=== PATIENT | female | born 1935 | race Caucasian/White ===

== ENCOUNTER 2016-10-09 08:43 | Emergency (ER) | payer MEDICARE, BC ==
[2016-05-09 12:27] VITALS: BMI 22.3
[~2016-10-09 08:43] MED LIST: COZAAR25 MG PO; FLOVENT DI50 MCG/DIS INH; FLUTICASONE PRO16 GM NASAL; NEXIUM40 MG PO; XYZAL5 MG PO
[2016-10-29] MEDS ORDERED: AZELASTINE HCL6 ML EACH EYE (08:02)
[2016-10-29] MEDS ORDERED: TOPICORT 0.25 %15 G1 TOPICAL (08:03)
== END 2016-10-09 10:24 | disposition home or self-care (01) ==
LOC: D.ER 08:43
DX: R13.10 Dysphagia, unspecified (principal); I10 Essential (primary) hypertension

== ENCOUNTER 2016-10-30 05:32 | Inpatient (IN) | payer MEDICARE, BC ==
[2016-10-29 08:59] LABS: BASOPHILS 0.2 % (0.0-2.0); EOSINOPHILS 4.3 % (0-7); HEMATOCRIT 39.1 % (36.0-48.0); HEMOGLOBIN 12.7 g/dL (12-16); IMMATURE GRANULOCYTES 0.3 % (0-5); LYMPHOCYTES 17.9 % (15-50); MCH 30.1 pg (26.0-34.0); MCHC 32.5 g/dL (31.0-37.0); MCV 92.7 fL (80.0-100.0); MEAN PLATELET VOLUME 10.2 fL (7.4-10.4); NEUTROPHILS 69.3 % (40-80); RBC 4.22 10x6/uL (4.00-5.40); RDW 12.7 % (11.5-14.5); WBC 10.7 10x3/uL (4.8-10.8)
[2016-10-29 09:08] LABS: ANION GAP 10.1 mmol/L (8-16); CALCIUM 9.8 mg/dL (8.5-10.1); PLATELET COUNT 350 10x3/uL (130-400); POTASSIUM - SERUM 4.1 mmol/L (3.5-5.1)
[2016-10-30] VITALS (11 sets, daily range): BP systolic 91–140; BP diastolic 53–61; BMI 21.5; BMI 29.3
[~2016-10-30] VITALS: Ht 165.1 cm; Wt 73.4 kg
--- NOTE | ~2016-10-30 | PN ---
PATIENT:RYLIE LUJAN MEDICAL RECORD: [id number] LOCATION:D.ICU D.231 ADMISSION DATE: 10/30/16 PROGRESS NOTE DATE OF SERVICE: 11/23/2016 Not much has changed in her care. We are awaiting LTAC placement. Dr. Bennett returns on Friday. TRANSINT:[id number] Voice Confirmation ID: [id number] DOCUMENT ID: [id number] LUIS MARTI MD CC: [id number] DICTATION DATE: 11/24/161909 DIVISION ENGINEER: 11/24/161999 ADM IN [facility] [address] [id number]
[~2016-10-30 05:32] MED LIST changes: +AZELASTINE HCL6 ML EACH EYE; +TOPICORT 0.25 %15 G1 TOPICAL
--- NOTE | 2016-10-30 18:58 | NUR ---
TRANSPORTED TO ICU INTUBATED WITH MONITOR, O2 AND AMBU
--- NOTE | 2016-10-30 19:10 | NUR ---
PT RECEIVED FROM THE OR. PT HAS 6 LAP SITES CDI ON ABDOMEN. LEFT LATERAL CHEST TUBE IN PLACE. PT ON VENT. TUBE IS SIZE 7 AT 23 CM. 100% FIO2. 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 BP 99/58 HR 71 TEMP 97 O2 SAT 96. VSS. CISNEROS IN PLACE. URINE CLEAR AND YELLOW. VSS. WILL CONTINUE TO MONITOR
--- NOTE | 2016-10-30 21:00 | NUR ---
2100 MEDS GIVE. ONE TIME BOLUS OF NS GIVEN PER ORDERS. VENT DECREASED TO 50% FIO2 BY RESPIRATORY.
[2016-10-30 21:10] LABS: HEMOGLOBIN 10.5 g/dL (12-16); MCH 29.9 pg (26.0-34.0); MCHC 31.8 g/dL (31.0-37.0); MEAN PLATELET VOLUME 10.6 fL (7.4-10.4); RBC 3.51 10x6/uL (4.00-5.40); RDW 12.9 % (11.5-14.5); WBC 30.9 10x3/uL (4.8-10.8)
[2016-10-30 21:24] LABS: ANION GAP 13.6 mmol/L (8-16); CALCIUM 7.9 mg/dL (8.5-10.1); CARBON DIOXIDE 25.6 mmol/L (21.0-32.0); POTASSIUM - SERUM 4.2 mmol/L (3.5-5.1)
--- NOTE | 2016-10-30 23:23 | NUR ---
B/P HAS BEEN TRENDING DOWN HR DECREASED TO [address] MCKEON AND GAVE A ONE TIME FLUID BOLUS AND OBTAINED A 12 LEAD EKG PER HIS ORDERS. WILL CONTINUE TO MONITOR CLOSELY FOR CHANGES.
[2016-10-31] VITALS (34 sets, daily range): BP systolic 81–162; BP diastolic 49–98; Ht 165.1 cm; Wt 73.4 kg
[2016-10-31 00:40] LABS: CKMB 1.2 U/L (0.0-3.6); CREATINE KINASE 71 UL (21-215)
[2016-10-31 00:49] LABS: TROPONIN-I < 0.017 ng/mL (0.000-0.060)
--- NOTE | 2016-10-31 01:24 | NUR ---
PT B/P HAS INCREASED TO 90'S SYSTOLIC. WILL CONTINUE TO MONITOR FOR CHANGES.
--- NOTE | 2016-10-31 03:00 | NUR ---
REASSESSMENT COMPLETED. SEE FLOWSHEET.
--- NOTE | 2016-10-31 04:56 | NUR ---
SPOKE WITH DR MCKEON REGARDING DECREASED B/P ND HR AGAIN. INSTRUCTED TO ORDER AN ECHO, AND GIVE A 500 ML BOLUS. WILL CONTINUE TO MONITOR FOR CHANGES
--- NOTE | 2016-10-31 06:30 | OP ---
PATIENT NAME: RYLIE LUJAN MEDICAL RECORD: [id number] :37 LOCATION: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 SURGEON: Abel Mckeon MD PROCEDURES: 1. Laparoscopic Heller myotomy with Beto fundoplication. 2. Esophagogastroduodenoscopy 3. Left chest tube thoracostomy. ANESTHESIA: General. COMPLICATIONS: None. SPECIMENS: Mediastinal mass. ESTIMATED BLOOD LOSS: 400 cc. Case was clean contaminated. OPERATIVE COURSE: After consent was obtained, the patient was taken to the operating room and placed in the supine position on the operating table. Next, general anesthesia was given via endotracheal intubation after a timeout was performed to confirm the correct patient and procedure. The abdomen was then prepped and draped in the typical sterile fashion. Local anesthetic was injected just above the umbilicus. A stab incision was made with 11-blade scalpel. Using a 5-mm bladeless optical trocar, the abdomen was entered under direct laparoscopic vision. Adequate pneumoperitoneum was achieved. The abdominal cavity was inspected. No evidence of bowel injury. No evidence of bleeding. At this time, the patient was placed in the steep reverse Trendelenburg position and Rashawn liver retractor was placed in the subxiphoid position. The left lobe of the liver was elevated exposing the GE junction in the diaphragmatic crura. At this time, ____ placed into the right lateral quadrant and two 5-mm trocars into the left lateral quadrant. All trocars were placed after the administration of local anesthetic under direct laparoscopic vision. Minimal amount of lysis of adhesion was performed. The patient had a previous gastric feeding tube. The proximal third of the greater curve ____ were mobilized. The short gastrics were taken with Harmonic scalpel. An accessory branch at the splenic artery was encountered, three 10-mm clips were applied to the artery. Next, the gastrohepatic ligament was opened with the Harmonic scalpel. Dissection continued at the level of the right crura. The posterior dissection was performed with Harmonic scalpel and blunt dissection, freeing up the posterior surface of the stomach and the esophagus. OPERATIVE REPORT [id number] TAIRYLIE Tatianna Dissection then continued anteriorly to the left crura. At this time, the entire hiatus had been circumferentially dissected. There was no hiatal hernia. At this time, we attempted to dissect out the mediastinum. The right side of the mediastinum and the posterior surface of the mediastinum were normal. The avascular planes were bluntly dissected with blunt dissectors. The left and anterior surface of the esophagus was densely adherent to the left pleura. There was a hard tissue mass to the left pleura. The pleura into the left chest was entered due to the significance of this coronary adhesions. A plane was finding created. The mass between the left pleura on the left side of the esophagus was sent for permanent pathology. Dissection continued. This area within the mediastinum was the area of Achalasia. A myotomy was performed. There was a small mucosal defect at this time. An EGD was performed by myself, scope was passed first through the oropharynx. It was advanced to the esophagus. There was a small hole in the esophagus. After the myotomy, the scope was easily traversed into the stomach. The scope was left in place. A primary repair was performed on the left anterior surface of the esophagus using 2-0 Stratafix suture. Prior to closure, a wire was passed through the EGD and C-scope was removed. A 41-Maltese Savary dilator was passed through the wire. The dilator was easily traversed across the previous area of achalasia. The mucosa was repaired with a 2-0 Stratafix suture. At this time, the dilator and wire were removed under direct laparoscopic vision. A Beto fundoplication was then performed using 2-0 Stratafix suture. It was secured to the left crura. After being secured to the left crura, was secured to the anterior esophagus reinforcing myotomy and again was reinforced of the right crura. At this time, the abdomen was copiously irrigated and suctioned. The abdominal cavity was inspected. There was no evidence of bowel injury. No evidence of bleeding. The Rashawn liver retractor was remove, all remaining irrigation was removed. The 12-mm trocars removed and closed with Vicryl suture and a Khanh-Dipika suture passer under direct laparoscopic vision. At this time, all remaining instruments were removed. The abdomen was desufflated. The skin was closed with 4-0 Monocryl, Mastisol and Steri-Strips. Due to the size of the pleural defect in the left chest, a 28-Maltese chest tube was placed into the left pleural cavity. The fourth intercostal space was identified just above the mammary crease. Local anesthetic was injected. An incision made with a 15 blade scalpel. Dissection continued to the level of the fifth rib and Vivien clamp was passed to the anterior surface of the fifth rib and in the pleural cavity. A finger sweep was performed. There were adhesions noted along the entire surface of the lateral chest wall. A 28-Maltese chest tube was placed posteriorly towards the apex and secured to the skin at 14 cm with 0 silk suture and then placed to 20 mmHg suction. The patient was transferred to the ICU, intubated in stable condition. At the end of the case, all needle and instrument counts were correct. No complications occurred. TRANSINT:[id number] Voice Confirmation ID: [id number] DOCUMENT ID: [id number] ABEL MCKEON MD at 0630 CC: [id number] DICTATION DATE: 10/30/161837 INSPECTOR SHEET METAL PARTS: 10/30/16 2352 ADM IN [id number] [place] [address]
[2016-10-31 06:39] LABS: BASOPHILS 0 % (0.0-2.0); EOSINOPHILS 0.1 % (0-7); HEMATOCRIT 25.9 % (36.0-48.0); HEMOGLOBIN 8.4 g/dL (12-16); IMMATURE GRANULOCYTES 0.3 % (0-5); LYMPHOCYTES 8.7 % (15-50); MCH 30.1 pg (26.0-34.0); MCHC 32.4 g/dL (31.0-37.0); MCV 92.8 fL (80.0-100.0); MEAN PLATELET VOLUME 10.6 fL (7.4-10.4); MONOCYTES 6.3 % (2-11); NEUTROPHILS 84.6 % (40-80); PLATELET COUNT 289 10x3/uL (130-400); RBC 2.79 10x6/uL (4.00-5.40); RDW 13.1 % (11.5-14.5); WBC 14.9 10x3/uL (4.8-10.8)
[2016-10-31 07:11] LABS: CALC OSMOLALITY 278 mosm/kg (275-300); CARBON DIOXIDE 18.8 mmol/L (21.0-32.0); CHLORIDE - SERUM 109 mmol/L (98-107); CKMB 1.1 U/L (0.0-3.6); CREATINE KINASE 80 UL (21-215); CREATININE - SERUM 1.1 mg/dL (0.6-1.3); GLUCOSE 124 mg/dL (74-106); POTASSIUM - SERUM 3.4 mmol/L (3.5-5.1); SODIUM 138 mmol/L (136-145); TROPONIN-I < 0.017 ng/mL (0.000-0.060); UREA NITROGEN 17 mg/dL (7-18); eGFR NON AFRICAN AMERICAN 51 mL/min (90-120)
[2016-10-31 07:12] LABS: CALCIUM 5.8 mg/dL (8.5-10.1)
--- NOTE | 2016-10-31 07:15 | NUR ---
SPOKE WITH DR MCKEON ABOUT CRITICAL CALCIUM. NEW ORDERS RECEIVED.
--- NOTE | 2016-10-31 08:55 | NUR ---
DR LAUREANO SAID OK TO USE CENTRAL LINE.
--- NOTE | 2016-10-31 09:30 | NUR ---
PATIENTS FIRST UNIT OF PRBC'S ([id number]) STARTED AFTER SAFETY CHECK WITH TWIN NOVA RN.
--- NOTE | 2016-10-31 10:00 | NUR ---
SEDATION TURNED OFF BY DR LAUREANO SOMETIME IN THE LAST 10 MINUTES.
--- NOTE | 2016-10-31 10:12 | NUR ---
PATIENT IS ON THE VENT WITH SEDATION. SHE IS NOT ABLE TO ANSWER QUESTIONS. I HAVE NOT SEEN ANY FAMILY HERE TO INTERVIEW. CM TO FOLLOW.
--- NOTE | 2016-10-31 10:31 | NUR ---
PATIENT IS AWAKE, IT HAS BEEN EXPLAINED THAT WE ARE TRYING TO WEAN HER OFF THE VENT WITH HOPES OF HAVING THAT TUBE OUT TODAY. PATIENT SHAKES HER HEAD YES TO UNDERSTANDING. IT WAS ALSO EXPLAINED THAT WE WOULD UNDO THE RESTRAINTS ONCE THE TUBE WAS OUT SECONDARY TO HER REACHING FOR THE TUBE WITH THEM OFF. SHE AGAIN SHOOK HER HEAD YES IN UNDERSTANDING. BLOOD CONTINUES TO INFUSE. WILL KEEP MONITORING.
--- NOTE | 2016-10-31 10:36 | NUR ---
DR MCKEON PAGED TO CLARIFY PAIN MANAGEMENT AFTER PATIENT IS EXTUBATED AND TO SEE WHAT HE PREFERS ON DIET. WILL WAIT FOR RETURN CALL.
--- NOTE | 2016-10-31 11:12 | NUR ---
PATIENT SWITCHED OVER TO CPAP
--- NOTE | 2016-10-31 11:26 | NUR ---
PATIENTS FIRST UNIT OF PRBC COMPLETED. NO S/S OF TRANSFUSION REACTION NOTED.
--- NOTE | 2016-10-31 11:35 | NUR ---
PATIENTS SECOND UNIT OF BLOOD ([id number]) STARTED AFTER SAFETY CHECK WITH TWIN RODRIGUEZ RN. WILL CONTINUE TO MONITOR.
[2016-10-31 12:30] LABS: CKMB 2.2 U/L (0.0-3.6); CREATINE KINASE 160 UL (21-215)
[2016-10-31 12:33] LABS: POTASSIUM - SERUM 5.1 mmol/L (3.5-5.1); TROPONIN-I < 0.017 ng/mL (0.000-0.060)
--- NOTE | 2016-10-31 12:57 | NUR ---
PATIENT IS EXTUBATED (1240) HAVE SPOKEN WITH DR MCKEON ON THE PHONE. PATIENT IS TO REMAIN STRICT NPO, NOTHING (NO ICE, WATER, NGT, NOTHING) IS TO GO INTO HER MOUTH. NEW ORDERS RECEIVED IN REGARDS TO PAIN CONTROL. WILL IMPLEMENT SOON PHARMACY GETS ON EMAR. IV TO LEFT HAND INFILTRATED, EXTREMETY IS COOL TO TOUCH AND LOOKS BRUISED UNDER INSERTION SITE AND ABOUT 1.5 INCHES UP ARM. THIS HAS BEEN ELEVATED AND PLACED IN WARM PACK. WILL MONITOR. RESTRAINTS WERE DC'D AT THIS TIME.
--- NOTE | 2016-10-31 13:00 | NUR ---
PATIENT C/O PAIN AT INSERTION SITE OF CHEST TUBE. THIS HAS BEEN EXPLAINED TO DR MCKEON.
--- NOTE | 2016-10-31 13:35 | NUR ---
PATIENTS SECOND UNIT OF PRBC'S COMPLETED. PATIENT WITHOUT ANY S/S OF TRANSFUSION REACTIONS.
--- NOTE | 2016-10-31 14:58 | NUR ---
Is the patient Alert and Oriented? Yes 0 * How many steps to enter\exit or inside your home? 0 0 * PCP DR BEDOYA 0 * Pharmacy [facility] [place] [address] * Preadmission Environment Home with Family 0 * ADLs Independent 0 * Equipment None 0 * List name and contact numbers for known caregivers / representatives who currently or will assist patient after discharge: DAUGHTER: JOHN CARTER [phone] OR [phone] DAUGHTER: SAVITA [phone] * Community resources currently utilized None 0 * Additional services required to return to the preadmission environment? No 0 * Can the patient safely return to the preadmission environment? Yes 0 * Has this patient been hospitalized within the prior 30 days at any hospital? No PATIENT IS EXTUBATED AND AWAKE AND ALERT. SHE STATES SHE LIVES AT HOME AND HER DAUGHTER, JOHN, LIVES WITH HER. SHE STATES HER PCP IS DR. BEDOYA. SHE STATES SHE GETS HER MEDS AT [facility] ON [address] SHE DENIES USE OF ANY EQUIPMENT. PATIENT STATES SHE HAD HOME HEALTH IN 2015 BUT DOES NOT RECALL THE AGENCY. MAY HAVE BEEN [facility]. PATIENT STATES THERE ARE NO STEPS TO ENTER HER HOME. NO DISHCHARGE NEEDS IDENTIFIED AT THIS TIME.
--- NOTE | 2016-10-31 15:21 | NUR ---
PATIENTS SISTER HERE. SHE REQUESTED THAT THIS NURSE STEP OUTSIDE OF THE ROOM AND TALK WITH HER. PATIENT STATED THAT THIS WAS OK. THE SISTER THEN BEGAN QUESTIONING EXACTLY WHAT THE CUTS WERE THE DOCTOR MADE, WHAT ALL WAS REMOVED FROM THE BODY, HOW LONG BEFORE THE BIOPSY WAS BACK FROM THE LARGE MASS REMOVED FROM HER BELLY, DID THE MASS LOOK CANCEROUS. AT THIS TIME I POLITELY INTERRUPTED AND STATED THAT THESE ARE MORE QUESTIONS THAT NEED TO BE ASKED TO DR MCKEON. SHE STATED "OH, OK, DO YOU THINK HE WOULD ANSWER THEM?" IT WAS EXPLAINED THAT HE WOULD DO HIS BEST, BUT IN ALL HONESTY SHE WAS ASKING QUESTIONS THAT WE MAY NOT HAVE THE ANSWERS TO YET. SHE STATED HER UNDERSTANDING.
--- NOTE | 2016-10-31 19:15 | NUR ---
REPORT RECEIVED AND CARE ASSUMED. INITIAL SHIFT ASSESSMENT COMPLETED SEE FLOWSHEET. NOTE IVF ARE VIA PUMP AND ALL IVF AND TUBING ARE LABELED APPROPRIATE AND ARE NOT DUE TO BE CHANGED. PT BEING MONITORED PER STANDARD ICU PROTOCOL AND ALL ALARMS ARE VERIFIED AND SET. PT NOTED TO BE AAOX4. DENIES NEEDS. ADMITS TO HER BACK BEING TIRED BUT VERBALIZED SHE IS SCARED TO TURN BECAUSE SHE MAY PULL SOMETHING OUT. ASSURED PT THE STAFF WOULD ASSIST HER. PT TURNED AND PILLOWS USED TO PROVIDE SUPPORT AND RELIEVE PRESSURE. PT ADMITS TO RELIEF FOR BACK DISCOMFORT. REORIENTATED PT TO USE OF SECURITY PATROL DRIVER BUTTON AND PT STATED SHE WAS IN NO PAIN AND DID UNDERSTAND HOW TO USE THE BUTTON. ORAL CARE PERFORMED. LIPS VERY DRY. MOUTH MOISTERIZER USED APPROPRIATE. NOT CT DRESSING CDI AND DRAINING SEROSANQ DRAINAGE TO THORASEAL III TO 21CM SUCTION NO LEAKS NOTED. FOR COMPLETE ASSESSMENT SEE FLOWSHEET. BED IN LOW POSITION AND CALL LIGHT IN REACH
--- NOTE | 2016-10-31 21:00 | NUR ---
DAUGHTER HER TO VISIT. EXPRESSED CONCERN OVER PT'S SISTER VISITING STATING "SHE IS UNEDUCATED AND CANT UNDERSTAND NOT TO UPSET HER BY TALKING". ASSURED PT I UNDERSTOOD HER CONCERNS AND THE HEALTH AND WELL BEING OF OUR PATIENTS WERE OUR TOP PRIORITY. DAUGHTER, JOHN, VERBALIZED COMPREHENSION OF STATEMENT. PT RESTING QUIETLY AT THIS TIME AND DENIES NEEDS. CONTINUE TO TURN AND REPOSITION Q2H FOR COMFORT AND TO RELIEVE PRESSURE.HEELS ARE FLOATED AND ARMS ELEVATED ON PILLOWS.
--- NOTE | 2016-10-31 21:00 | NUR ---
COPY OF LIVING WILL AND DURABLE POWER OF CAR SEAT MAKER FOR HEALTH CARE RECEIVED FROM DAUGHTER, JOHN NOVA. COPY PLACED ON CHART
--- NOTE | 2016-10-31 23:00 | NUR ---
SHIFT ASSESSMENT COMPLETED. NO SIGNIFICANT CHANGES. CONTINUE TO ASSIST PT WITH REPOSITIONING Q2H. PT CONTINUES TO DENY PAIN. PT BECOMING LESS FEARFUL ABOUT DISLODGING SOMETHING AND MORE PARTICIPATORY IN CARE.
[2016-11-01] VITALS (23 sets, daily range): BP systolic 109–155; BP diastolic 57–95
--- NOTE | 2016-11-01 01:00 | NUR ---
PT RESTING RESP REG AND NONLABORED. PT WITH AN OCCASIONAL LOOSE COUGH NONPRODUCTIVE
--- NOTE | 2016-11-01 03:00 | NUR ---
SHIFT ASSESSMENT COMPLETED. NO SIGNIFICANT CHANGES
[2016-11-01 04:51] LABS: HEMATOCRIT 35.1 % (36.0-48.0); HEMOGLOBIN 11.5 g/dL (12-16); MCH 29.4 pg (26.0-34.0); MCHC 32.8 g/dL (31.0-37.0); MCV 89.8 fL (80.0-100.0); MEAN PLATELET VOLUME 11.6 fL (7.4-10.4); PLATELET COUNT 309 10x3/uL (130-400); RBC 3.91 10x6/uL (4.00-5.40); RDW 14.9 % (11.5-14.5); WBC 25.2 10x3/uL (4.8-10.8)
[2016-11-01 05:05] LABS: CREATININE - SERUM 1.1 mg/dL (0.6-1.3)
[2016-11-01 05:09] LABS: ANION GAP 14.2 mmol/L (8-16); CALCIUM 9.3 mg/dL (8.5-10.1); POTASSIUM - SERUM 4.2 mmol/L (3.5-5.1)
[2016-11-01 05:25] LABS: EOSINOPHILS 1 % (0-7); LYMPHOCYTES 4 % (15-50); MONOCYTES 4 % (2-11); NEUTROPHILS 89 % (40-80); PLATELET ESTIMATE NORMAL
--- NOTE | 2016-11-01 05:45 | NUR ---
LABS REVIEWED. NO COVERAGE NEEDED FOR ELECTROLYTE PROTOCOL
--- NOTE | 2016-11-01 06:31 | NUR ---
CALL RECEIVED FROM XAVIER JOHN, SECURITY WORD VERIFIED AND UPDATE GIVEN.
--- NOTE | 2016-11-01 07:24 | NUR ---
REPORT GIVEN TO DALILA KELLEY CARE RELINQUISHED
--- NOTE | 2016-11-01 17:16 | NUR ---
8057-RECIEVED PER FLOW SHEET-DR ADKINS IN UNIT AND NOTIFIED OF CONSULT-ASSISTED TO BEDSIDE CHAIR VERBALLY DIRECTED BY DR MCKEON-REQUIRED ASSIST OF 2 -LL CVL INFUSING N/S AT 100ML/H AND MORPHINE TRUCK DRIVING PER PT USAGE--STRICT NPO 1030-ASSISTED BACK TO BED FOR GASTRO GRAFFIN AND CT-TO RADIOLOGY ACCOMPANIED BY TECHS-1100
--- NOTE | 2016-11-01 19:20 | NUR ---
Assessment complete. See flowsheet. Pt sedated to vinnie 3 with Propofol sedation infusing @ 10mcg/kg/min (5.6cc/hr) upon entrance into room with VSS. Pt opens eyes slightly to vetbal stimulation and moves extremities to command against gravity. Slight non-pitting edema noted to upper extremities bilaterally and elevated with pillows to facilitate drainage. Pt orally intubated with 8.0FR OET tube secure 22cm @ lip secure to ventilator set A/C Rate 14 TV 550 FiO2 @ 100% PEEP 8.0. Lung sounds clear to RUL and RML and diminished to MARK, LLL and RLL. HR ST 104BPM with S1S2 auscultated. All peripheral pulses +2 with capillary refill <3 seconds. Left IJTL CVL site CDI no s/s infection with NS infusing @ 60cc/hr with TPN @ 40cc/hr and Propofol sedation. BS hypoactive to all quadrants. Abdomen soft and flat. Macedo catheter secure retrieving clear, yellow urine. SCDs secured bilaterally and turned on. Heels bridged. Pt repositioned to left side. HOB @ 30 degrees. NO s/s pain or distress. Bilat soft wrist restraints secured after ROM to all extremities. Temp 98.3F orally. CPOC.
--- NOTE | 2016-11-01 20:07 | NUR ---
1720-NOTED PT ATTEMPTING TO COUGH AND CLEAR THROAT-NOTED SAT STRAIGHT UP IN BED --NOT ABLE TO CLEAR AIRWAY-NOTED AUDIBLE TRACHEAL STRIDOR WITH STETHESCOPE-ATTEMPTED YANKEUR SUCTIONING-WITH LITTLE EFFECT-RT AT BEDSIDE-DR LAUREANO PG'D STAT-RACEMIC UPDRAFT STARTED-NOTED CONTINUED STRIDOR AND INCREASED SAT TO 96%-173-DR MCKEON AND LISSA NOTIFIED OF SAME-DR SUMMERS AT [facility]-ER MD-STAT CHEST XRAY-REVIEW OF CHEST TUBE-NO AIRLEAK HKVAH-1158-CU IVY PG'D STAT FOR POSSIBLE INTUBATION--1754-DR FARLEY AND GEORGI-
--- NOTE | 2016-11-01 20:26 | NUR ---
180-NOTED CONTINUED RESP STRIDOR-DECREASED IN INTENSITY-PT NOT ABLE TO VOCALIZE -DR FARLEY SET UP AND PREMED FOR INTUBATION FOR AIRWAY PATENCY--COMPLETED AND TOLERATED WELL-PLACED TO VENT -DR LAUREANO REMAINS AT [facility]-SETUP FOR EMERGENT BRONCHOSCOPY-DAUGHTER JOHN NOTIFIED OF SAME AND CURRENT EVENTS-BRONCHOSCOPE IN PROGRESS-IMPROVED AIRWAY/LUNG STATUS--NOTED-DAUGHTER EXPRESSED UNDERSTANDING AND STATED ON WAY TO HOSPITAL 183-BRONCH REMAINS IN PROGRESS-TOLERATING WELL-DIPRIVAN SET UP AT 10MCG/KG/MIN-DAX REMAINS AT 1 1850-PORT CXR DONE FOLLOWING BRONCH-DR LAUREANO SPOKE WITH DR ALCARAZ VIA TELEPHONE REGARDING FINDINGS-DAUGHTER NOT IN WAITING AREA- 1909-DAUGHTER IN UNIT AND ANSWERED QUESTIONS TO BEST OF ABILITY-DR LAUREANO PG'D REQUESTED BY DAUGHTER-RETURNED CALL-MAJORITY OF CONCERNS ESOPHAGEAL-DR LAUREANO STRESSED NOT ABLE TO ADDRESS-DID NOT VISUALIZE WITH BRONCHOSCOPE THE ESOPHAGUS TUBE-ON SPEAKER PHONE FOR PARTIAL-DAUGHTER APPEARED TO UNDERSTAND-RECOMMENDED TO SPEAK WITH DR ALCARAZ AND LINDA REGARDING SURGICAL PROCEDURE-[facility] 193-DR ALCARAZ IN UNIT-[facility]
--- NOTE | 2016-11-01 21:20 | NUR ---
Pt repositioned to right side with HOB @ 30 degrees. Oral care completed with mouth moisturizer applied. VSS.
--- NOTE | 2016-11-01 22:40 | NUR ---
KCL Yvon 20meq/100NS started over 2hrs for K+ 3.2 on ABG per elec.protocol FiO2 decreased to 50% per Josefa RT.
--- NOTE | 2016-11-01 23:20 | NUR ---
Reassessment complete. See flowsheet. No neuro changes to note. OET tube remains secure to ventilator with no setting changes to note. MARK LLL RLL remain diminished. HR SR with S1S2 auscultated. All peripheral pulses +2 with capillary refill <3 seconds. CVL site remains CDI and secure to IVF with no changes to note. BS remain hypoactive to all quadrants. Macedo remains secure retrieving clear/yellow urine. pt repositioned to back with HOB @ 30 degrees. Arms and heels remain bridged. Bilat soft wrist restraint remain secure. L-chest tube secure to 20cm suction retrieving sanguanous fluid with no leak noted. CPOC.
[2016-11-02] VITALS (24 sets, daily range): BP systolic 97–124; BP diastolic 56–89
--- NOTE | 2016-11-02 01:20 | NUR ---
Pt repositioned to left side with HOB @ 30 degrees. Oral care completed with mouth moisturizer applied. VSS. Linens clean/dry. CPOC.
--- NOTE | 2016-11-02 02:30 | NUR ---
FiO2 decreased to 40% per Josefa RT
--- NOTE | 2016-11-02 03:20 | NUR ---
Reassessment complete. See flowsheet. Pt remains sedated with no neuro changes and awakens for repositioning to back with HOB @ 30 degrees for AM CXR. Pt nodding head to questioning and following commands. OET tube remains secure to vent with no setting changes to note. Lung sounds unchanged. HR SR with S1S2 auscultated. All peripheral pulses remain +2 with capillary refill <3 seconds. CVL site CDI with NO IVF changes to note from previous assessment. BS remain hypoactive to all quadrants. Macedo secure retrieving clear/yellow urine. Left lateral chest tube site CDI; unchanged with no air leak noted retrieving serosanguanous fluid. Lap incision sites to abdomen unchanged. Pt Arms and heels bridged. Bilat soft wrist restraints secured. NO s/s pain or distress. Oral care completed. CPOC.
[2016-11-02 05:10] LABS: BASOPHILS 0 % (0.0-2.0); EOSINOPHILS 0 % (0-7); HEMATOCRIT 30.8 % (36.0-48.0); HEMOGLOBIN 10.1 g/dL (12-16); IMMATURE GRANULOCYTES 0.5 % (0-5); MCH 29.4 pg (26.0-34.0); MCHC 32.8 g/dL (31.0-37.0); MCV 89.8 fL (80.0-100.0); MONOCYTES 2.9 % (2-11); NEUTROPHILS 94.6 % (40-80); PLATELET COUNT 332 10x3/uL (130-400); RBC 3.43 10x6/uL (4.00-5.40); RDW 14.8 % (11.5-14.5)
[2016-11-02 05:18] LABS: ANION GAP 13.4 mmol/L (8-16); CALCIUM 8.5 mg/dL (8.5-10.1); CARBON DIOXIDE 22.9 mmol/L (21.0-32.0); POTASSIUM - SERUM 3.3 mmol/L (3.5-5.1)
--- NOTE | 2016-11-02 05:20 | NUR ---
Pt repositioned to right side. HOB @ 30 degrees. Oral care completed with mouth moisturizer applied. VSS. No other changes to note. Arms and heels remain bridged. CPOC.
--- NOTE | 2016-11-02 11:07 | NUR ---
Nutrition Follow Up: Chart reviewed. Pt is sedated on vent. Spoke with nursing - pt was started on Clinimix @ 40 ml/hr on 11/01/16. Labs noted - K+ low and Glucose elevated. Meds noted including Diprivan @ 13.4 ml/hr providing 354 kcal. Clinimix providing 489.6 kcal and 41 g protein. Pt is receiving 844 kcal/d from meds and Clinimix. Rec continue current PPN regimen. RD will continue to monitor pt nutritional status.
--- NOTE | 2016-11-02 19:20 | NUR ---
Reassessment complete. See flowsheet. Pt sedated to vinnie 3 with Propofol sedation infusing @ 25mcg/kg/min. Pt follows commands and attempts conversation with stimulation and tracking with eyes. Pt calmed and remains cooperative. Oral care completed per Josefa RT. Pt with 8.0FR OET tube secure 22cm @ lip to vent set R 14 TV 550 FiO2 @ 40% PEEP 8.0. Lung sounds clear to all santos with diminished RLL, MARK, and LLL. Left lateral chest tube site secure to 20cm suction retrieving small amt serosanguanous fluid and no air leak noted. Insertion site CDI. HR SR with S1S2 auscultated. All peripheral pulses +2 with capillary refill <3 seconds. Left IJTL CVL site CDI no s/s infection with NS infusing @ 60cc/hr with TPN @ 40cc/hr and Propofol sedation. Morphine CONTRACT ASSISTANT turned off at this time. BS hypoactive to all quadrants. Lap incision sites to abdomen CDI with steristrips secure and no drainage noted and no s/s infection. Macedo catheter secure retrieving clear/yellow urine. Pt pulled up in bed and positioned to left side with arms and heels bridged. HOB elevated to 30 degrees. Bilat soft wrist restraints secured after ROM to all extremities. temp 99.4F orally. Pt denies pain at this time. Linens clean and dry. CPOC.
--- NOTE | 2016-11-02 21:20 | NUR ---
Pt repositioned to right side. HOB @ 30 degrees. Oral care completed with mouth moisturizer applied. VSS. No other changes to note. No s/s pain or distress. CPOC.
--- NOTE | 2016-11-02 23:20 | NUR ---
Reassessment complete. See flowsheet. Pt remains sedated to vinnie 2-3 with Propofol sedation infusing @ 25mcg/kg/min. NO neuro changes to note. OET tube remains secure to vent with no setting changes to note. Lung sounds remain diminished to RLL MARK LLL. Oral care completed with mouth moisturizer applied. CVL site CDI with NO IVF changes to note. HR SR with S1S2 auscultated. All peripheral pulses +2 with capillary refill <3 seconds. BS remain hypoactive to all quadrants. Left lateral chest tube site unchanged and secure to 20cm suction with no air leak noted retrieving serosanguanous fluid. Lap incision sites CDI; unchanged. Macedo catheter remains secure retrieving clear/yellow urine. Pt pulled up in bed and positioned to back with HOB @ 30 degrees. Arms and heels bridged. SCDs secure. Linens clean/dry. NO other changes to note. Bilat soft wrist restraints secured. CPOC.
[2016-11-03] VITALS (23 sets, daily range): BP systolic 108–141; BP diastolic 60–78
[2016-11-03 01:20] LABS: BASOPHILS 0 % (0.0-2.0); EOSINOPHILS 0 % (0-7); HEMATOCRIT 29.3 % (36.0-48.0); HEMOGLOBIN 9.4 g/dL (12-16); IMMATURE GRANULOCYTES 0.6 % (0-5); LYMPHOCYTES 5.3 % (15-50); MCH 29.3 pg (26.0-34.0); MCHC 32.1 g/dL (31.0-37.0); MCV 91.3 fL (80.0-100.0); MEAN PLATELET VOLUME 10.7 fL (7.4-10.4); MONOCYTES 7.8 % (2-11); NEUTROPHILS 86.3 % (40-80); PLATELET COUNT 382 10x3/uL (130-400); RBC 3.21 10x6/uL (4.00-5.40); RDW 14.8 % (11.5-14.5); WBC 26.2 10x3/uL (4.8-10.8)
--- NOTE | 2016-11-03 01:20 | NUR ---
Pt repositioned to left side. HOB @ 30 degrees. Oral care completed per Josefa HECTORS. CPOC.
[2016-11-03 01:43] LABS: ANION GAP 10.6 mmol/L (8-16); CALCIUM 8.5 mg/dL (8.5-10.1); CARBON DIOXIDE 25.9 mmol/L (21.0-32.0); CREATININE - SERUM 0.9 mg/dL (0.6-1.3); MAGNESIUM - SERUM 1.7 mg/dL (1.8-2.4); POTASSIUM - SERUM 3.5 mmol/L (3.5-5.1); VANCOMYCIN - TROUGH 11.6 ug/mL (10.0-20.0)
[2016-11-03 01:44] LABS: PHOSPHOROUS 1.2 mg/dL (2.5-4.9)
--- NOTE | 2016-11-03 05:20 | NUR ---
Pt repositioned to right side. Oral care completed with mouth moisturizer applied. Arms and heels rebridged. VSS.
[2016-11-03 16:08] LABS: ACID FAST SMEAR Negative (()); AFB SPECIMEN PROCESSING Concentration (())
--- NOTE | 2016-11-03 19:07 | NUR ---
0715-RECIEVD PER FLOW SHEET-L LATEERAL CHEST TUBE TO 20CM SUCTION-NO AIR LEAK NOTED-SMALL AMOUNT OF SEROUS DRAINAGE AND GOOD FLUCTUATION IN TUBING 1030-COMPLETE SKIN CARE DONE-L CHEST TUBE DRG CHANGED-NOTED 8CM AT SKIN-SUTURE NOT INTACT-NO AIRLEAK-FLUCTUATION IN TUBING-SECURED WITH TAPE 1100-DR ENGLISH IN UNIT-F102 DECREASED TO 30 1815-DAUGHTER AT BEDSIDE-LARGE AMOUNT OF EUCERIN CREAM APPLIED TO L HAND-NOTED LARGE BRUISED AREA-TO TOP OF HAND APPROX 4INCH IN LENGTH AND 2INCH IN WIDTH-SHAPE OF RECTANGLE-ASKED DAUGHTER WHERE THAT ORIGINATED-SHE STATED SHE FALLS OR HITS HERSELF--BRUISE IMPRESSION DOES NOT MATCH ANY SHAPE IN BED AREA AND COLOURING IS MAROON RED/YELLOW- NOTED DID NOT APPLY EUCERIN TO OTHER SPOT
--- NOTE | 2016-11-03 19:30 | NUR ---
ASSESSMENT COMPLETE. S1S2. RR EQUAL BILATERALLY DIMINISHED IN LOWER LOBES. PERRLA. PT SEDATED ON VENT; ASSIST CONTROL @ 30%. STRICT NPO. CHEST TUBE TO LEFT CHEST; 20 SUCTION. RIGHT IJ; PATENT; SEE IV FLOW SHEET FOR DETIALS. PT AROUSES TO VOICE. RADIAL AND PEDAL PULSES PALPATED. SEE FLOW SHEET FOR DETAILS.
--- NOTE | 2016-11-03 20:00 | NUR ---
FAMILY CALLED; SPOKE WITH FAMILY. UPDATE GIVEN.
--- NOTE | 2016-11-03 21:30 | NUR ---
FAMILY CALLED; SPOKE WITH FAMILY. UPDATE GIVEN.
--- NOTE | 2016-11-03 23:15 | NUR ---
REASSESSMENT COMPLETE. NO CHANGES FROM PREVIOUS ASSESSMENT. SEDATED ON VENT. WILL CONTINUE TO MONITOR.
[2016-11-04] VITALS (24 sets, daily range): BP systolic 108–132; BP diastolic 58–71
--- NOTE | 2016-11-04 01:15 | NUR ---
PT SEDATED ON VENT. NO SIGNS OF DISTRESS. WILL CONTINUE TO MONITOR.
--- NOTE | 2016-11-04 03:30 | NUR ---
REASSESSMENT COMPLETE. NO CHANGES FROM PREVIOUS ASSESSMENT. WILL CONTINUE TO MONITOR.
[2016-11-04 04:23] LABS: BASOPHILS 0.1 % (0.0-2.0); EOSINOPHILS 1.2 % (0-7); HEMATOCRIT 29.2 % (36.0-48.0); HEMOGLOBIN 9.2 g/dL (12-16); IMMATURE GRANULOCYTES 0.7 % (0-5); LYMPHOCYTES 10.8 % (15-50); MCH 28.9 pg (26.0-34.0); MCHC 31.5 g/dL (31.0-37.0); MCV 91.8 fL (80.0-100.0); MEAN PLATELET VOLUME 10.2 fL (7.4-10.4); MONOCYTES 12.4 % (2-11); NEUTROPHILS 74.8 % (40-80); PLATELET COUNT 445 10x3/uL (130-400); RBC 3.18 10x6/uL (4.00-5.40); RDW 14.7 % (11.5-14.5)
[2016-11-04 04:25] LABS: WBC 18.9 10x3/uL (4.8-10.8)
[2016-11-04 04:34] LABS: ANION GAP 11.1 mmol/L (8-16); CALCIUM 8.3 mg/dL (8.5-10.1); CARBON DIOXIDE 24.2 mmol/L (21.0-32.0); CREATININE - SERUM 0.8 mg/dL (0.6-1.3); POTASSIUM - SERUM 3.3 mmol/L (3.5-5.1)
[2016-11-04 04:58] LABS: MAGNESIUM - SERUM 1.8 mg/dL (1.8-2.4)
[2016-11-04 04:59] LABS: PHOSPHOROUS 1.7 mg/dL (2.5-4.9)
--- NOTE | 2016-11-04 08:59 | NUR ---
0700 PT SEDATED AND ON VENT. VENT SETTINGS REMAIN UNCHANGED, 22 AT LIP. SUCTION PERFORMED. PT COUGHING FREQUENTLY BUT MINIMAL SECRETIONS NOTED. NORMAL SINUS ON MONITOR, S1S2 NOTED. RHONCHI NOTED IN UPPER LOBES BILAT AND RIGHT MIDDLE LOBE. HOB 30 DEGREES. BOWEL SOUNDS HYPOACTIVE X4. PASSIVE ROM PERFORMED. VITAL SIGNS STABLE. WILL CONTINUE TO MONITOR.
--- NOTE | 2016-11-04 11:13 | NUR ---
NUTRITION MONITORING & EVAL CHART REVIEWED. TPN ORDERED PER MD CONSULT. BMP ADDED TO AM LABS. DID NOT ORDER LIPIDS PT CURRENTLY ON DIPRIVAN. REMAINS ON VENT. RD FOLLOWING
--- NOTE | 2016-11-04 14:30 | NUR ---
0900 FAMILY AT BEDSIDE. QUESTIONS ANSWERED AND THEY VERBALIZED UNDERSTANDING. MEDS GIVEN. PT SUCTIONED AND REPOSITIONED.
--- NOTE | 2016-11-04 14:31 | NUR ---
1100 PT RESTING COMFORTABLY AT THIS TIME. VENT SETTINGS ALTERED TODAY TO ATTEMPT TO WEAN. WILL MONITOR CLOSELY DURING THERAPY
--- NOTE | 2016-11-04 17:51 | NUR ---
1300 PT COUGHING AT THIS TIME. ORAL AND ETT SUCTION PERFORMED, MOISTURIZER APPLIED. HOB 30 DEGREES
--- NOTE | 2016-11-04 17:53 | NUR ---
1500 PT CALLED AND UPDATE GIVEN ON PT VENT CHANGES. VERBALIZED UNDERSTANDING. PT STATUS REMAINS UNCHANGED AT THIS TIME.
--- NOTE | 2016-11-04 17:54 | NUR ---
1700 VITAL SIGNS STABLE. PT REPOSITIONED IN BED. FOOT DROP BOOTS APPLIED FOR PREVENTION. PASSIVE ROM PERFORMED. NO FURTHER CHANGES AT THIS TIME.
--- NOTE | 2016-11-04 19:15 | NUR ---
ASSESSMENT COMPLETE. S1S2. RR DIMINISHED BILATERALLY IN LOWER LOBES. PT SEDATED ON VENT; OPENS EYES TO PAIN. LT JUGULAR CVL; PATENT. SEE IV FLOW SHEET FOR DETAILS. SCD'S, RESTRAINTS, AND FOOT DROP BOOTS IN PLACE. RADIAL AND PEDAL PULSES PALPATED. CHEST TUBE TO LEFT CHEST; 20 SUCTION. LAP INCISION SITES X6 ON ABDOMEN. BRUSING AND SCABS/SORES TO LEFT WRIST. ARM BANDS IN PLACE. OCCASIONAL COUGHING. WILL CONTINUE TO MONITOR. SEE FLOW SHEET FOR FUTHER DETAILS.
--- NOTE | 2016-11-04 22:55 | NUR ---
REASSESSMENT COMPLETE. NO CHANGES FROM PREVIOUS ASSESSMENT. PT SEDATED ON VENT. VSS. NO DISTRESS NOTED. WILL CONTINUE TO MONITOR.
[2016-11-05] VITALS (24 sets, daily range): BP systolic 100–132; BP diastolic 52–71
--- NOTE | 2016-11-05 00:06 | NUR ---
PT SEDATED ON VENT. VSS. NO DISTRESS NOTED. FREQUENT COUGH. LITTLE SPUTUM SUCTIONED VIA INLINE. ORAL CARE PROVIDED. WILL CONTINUE TO MONITOR.
--- NOTE | 2016-11-05 03:15 | NUR ---
REASSESSMENT COMPLETE. NO CHANGES FROM PREVIOUS ASSESSMENT. PT SEDATED ON VENT. NO DISTRESS NOTED. VSS. WILL CONTINUE TO MONITOR.
[2016-11-05 03:49] LABS: BASOPHILS 0.1 % (0.0-2.0); EOSINOPHILS 2.9 % (0-7); HEMATOCRIT 28.1 % (36.0-48.0); HEMOGLOBIN 8.9 g/dL (12-16); IMMATURE GRANULOCYTES 1.4 % (0-5); LYMPHOCYTES 11.3 % (15-50); MCH 29.2 pg (26.0-34.0); MCHC 31.7 g/dL (31.0-37.0); MCV 92.1 fL (80.0-100.0); MONOCYTES 14.8 % (2-11); NEUTROPHILS 69.5 % (40-80); PLATELET COUNT 467 10x3/uL (130-400); RBC 3.05 10x6/uL (4.00-5.40); RDW 14.7 % (11.5-14.5)
[2016-11-05 04:03] LABS: ALBUMIN 1.4 g/dL (3.4-5.0); ALKALINE PHOSPHATASE 209 U/L (46-116); ALT (SGPT) 91 U/L (10-68); BILIRUBIN - DIRECT 0.32 mg/dL (0.00-0.30); BILIRUBIN - INDIRECT 0.18 mg/dL (0.00-1.00); CALC OSMOLALITY 277 mosm/kg (275-300); CARBON DIOXIDE 24.1 mmol/L (21.0-32.0); CHLORIDE - SERUM 107 mmol/L (98-107); CREATININE - SERUM 0.7 mg/dL (0.6-1.3); GLUCOSE 108 mg/dL (74-106); MAGNESIUM - SERUM 1.9 mg/dL (1.8-2.4); PROTEIN - SERUM 5.4 g/dL (6.4-8.2); SODIUM 139 mmol/L (136-145); UREA NITROGEN 10 mg/dL (7-18); eGFR NON AFRICAN AMERICAN 85 mL/min (90-120)
[2016-11-05 04:04] LABS: PHOSPHOROUS 3.2 mg/dL (2.5-4.9); POTASSIUM - SERUM 3.6 mmol/L (3.5-5.1)
--- NOTE | 2016-11-05 07:00 | NUR ---
PT REPORT REC'D, PT CARE ASSUMED. PT ON VENTILATOR SIMV, VSS. PT OPENS EYES TO VOICE. CISNEROS CATHETER FREE OF KINKS TO GRAVITY WITH CLEAR YELLOW URINE RETURN. LEFT IJ CENTRAL LINE WITH FLUIDS INFUSING, DRESSING CDI. LEFT CHEST TUBE TO 20CM OF SUCTION, NO AIR LEAK NOTED. LAP INCISIONS TO ABDOMEN, STERI STRIPPS CDI. SHIFT ASSESSMENT COMPLETED, SEE FLOW SHEET. ROOM FREE OF CLUTTER,BED LOCKED IN LOWEST POSITION, CALL LIGHT IN REACH. WILL CONTINUE TO MONITOR PT.
--- NOTE | 2016-11-05 07:40 | NUR ---
DR. MCKEON AT THE BEDSIDE, VSS, DECREASED SEDATION FROM 40MCG/KG/MIN TO 20MCG/KG/MIN. WILL CONTINUE TO MONITOR PT.
--- NOTE | 2016-11-05 09:26 | NUR ---
REPOSITIONED PT, PROPPED WITH PILLOWS, PT ABLE TO FOLLOW COMMANDS, WILL CONTINUE TO MONITOR PT.
--- NOTE | 2016-11-05 09:28 | NUR ---
NUTRITION MONITORING & EVAL CHART REVIEWED. PT REMAINS SEDATED ON VENT. TPN @ 40 CC/HR. WILL CONTINUE TO MONITOR PT PROGRESS. RD FOLLOWING
--- NOTE | 2016-11-05 12:00 | NUR ---
PT FAMILY AT THE BEDSIDE, DR. BAILEY AT THE BEDSIDE, ALL QUESTIONS ANSWERD,VSS, WILL CONTINUE TO MONITOR PT.
--- NOTE | 2016-11-05 15:00 | NUR ---
PT HAD BOWEL MOVEMENT, COMPLETE LINEN CHANGE/BED BATH. REASSESSMENT COMPLETED, SEE FLOW SHEET. ROOM FREE OF CLUTTER, CALL LIGHT IN REACH, BED LOCKED IN LOWEST POSITION. WILL CONTINUE TO MONITOR PT.
--- NOTE | 2016-11-05 19:45 | NUR ---
ASSESSMENT COMPLETE. S1S2. RR SHALLOW DIMINISHED BILATERALLY IN LOWER LOBES. SEDATED ON VENT; SIMV. PERRLA. OPENS EYES TO PAIN. LEFT IJ CVL; PATENT. NSR SHOWING ON MONITOR. NPO. LEFT CHEST TUBE; SMALL AMOUNT SEROUS DRAINAGE; 20 SUCTION. RADIAL AND PEDAL PULSES PALPATED.
--- NOTE | 2016-11-05 21:07 | NUR ---
PT HAD SMALL BOWEL MOVEMENT. PT CLEANED AND LINENS CHANGED.
--- NOTE | 2016-11-05 21:45 | NUR ---
FAMILY CALLED; SPOKE TO FAMILY. UPDATE GIVEN.
--- NOTE | 2016-11-05 23:15 | NUR ---
REASSESSMENT COMPLETE. NO CHANGES FROM PREVIOUS ASSESSMENT. VSS. NO DISTRESS NOTED. WILL CONTINUE TO MONITOR.
[2016-11-06] VITALS (23 sets, daily range): BP systolic 102–141; BP diastolic 52–74
--- NOTE | 2016-11-06 03:30 | NUR ---
REASSESSMENT COMPLETE. NO CHANGES FROM PREVIOUS ASSESSMENT. VSS. WILL CONTINUE TO MONITOR.
[2016-11-06 03:58] LABS: BASOPHILS 0.2 % (0.0-2.0); EOSINOPHILS 3.2 % (0-7); HEMATOCRIT 27.4 % (36.0-48.0); HEMOGLOBIN 8.8 g/dL (12-16); IMMATURE GRANULOCYTES 4.1 % (0-5); LYMPHOCYTES 11.4 % (15-50); MCH 29.5 pg (26.0-34.0); MCHC 32.1 g/dL (31.0-37.0); MCV 91.9 fL (80.0-100.0); MEAN PLATELET VOLUME 10.1 fL (7.4-10.4); MONOCYTES 18.2 % (2-11); NEUTROPHILS 62.9 % (40-80); PLATELET COUNT 545 10x3/uL (130-400); RBC 2.98 10x6/uL (4.00-5.40); RDW 14.7 % (11.5-14.5); WBC 16.7 10x3/uL (4.8-10.8)
[2016-11-06 04:13] LABS: CALC OSMOLALITY 275 mosm/kg (275-300); CALCIUM 7.8 mg/dL (8.5-10.1); CARBON DIOXIDE 24.7 mmol/L (21.0-32.0); CHLORIDE - SERUM 106 mmol/L (98-107); CREATININE - SERUM 0.7 mg/dL (0.6-1.3); GLUCOSE 118 mg/dL (74-106); PHOSPHOROUS 3.2 mg/dL (2.5-4.9); POTASSIUM - SERUM 3.8 mmol/L (3.5-5.1); SODIUM 138 mmol/L (136-145); UREA NITROGEN 10 mg/dL (7-18); eGFR NON AFRICAN AMERICAN 85 mL/min (90-120)
--- NOTE | 2016-11-06 07:30 | NUR ---
REPORT RECD PT CARE ASSUMED. PT IS SEDATED ON VENTILATOR. S1S2 NOTED, SR PER CM. PT HAS CT TO LEFT SIDE, NO NEW OUTPUT NOTED. PT HAS LAP SITED TO ABD WITH STERI STRIPS INTACT. SEE SHIFT ASSESSMENT FOR FURTHER DETAILS. VSS. WILL MONITOR.
--- NOTE | 2016-11-06 09:00 | NUR ---
ORAL CARE AND SUCTION PROVIDED, PT REPOSITIONED PER PROTCOL.
--- NOTE | 2016-11-06 11:00 | NUR ---
PT FAMILY HERE FOR VISITATION, UPDATE PROVIDED. SEDATION OFF AT THIS TIME, CPAP ATTEMPT IN PROGRESS.
--- NOTE | 2016-11-06 12:00 | NUR ---
PT RR TO HIGH, PT RETURNED TO SIMV MODE, AND LIGHT SEDATION INITIATED.
[2016-11-06 12:16] LABS: FUNGUS STAIN Final report (())
--- NOTE | 2016-11-06 14:00 | NUR ---
PT HAS SMALL LOOSE BM. PT IS CLEANED AND RECIEVES PARTIAL LINEN CHANGE. PT REPOSITIONED AND ORAL CARE PROVIDED. VSS. WILL MONITOR.
[2016-11-06 14:21] LABS: FUNGUS STAIN Final report (())
[2016-11-06 15:24] LABS: ACID FAST SMEAR Negative (()); AFB SPECIMEN PROCESSING Concentration (())
--- NOTE | 2016-11-06 16:00 | NUR ---
DR MCKEON UPDATED ON PT. PT HAS INCREASED, DR MCKEON AWARE NEW ORDERS RECD.
--- NOTE | 2016-11-06 19:20 | NUR ---
REPORT RECIEVED, SHIFT ASSESSMENT COMPLETE, PT IS SEDATED ON VENT, AROUSES TO VOICE, ON 30% FIO2 WITH 97% O2 SAT, CRACKLES HEARD IN B/L UPPER LOBES, DIMINISHED IN B/L LOWER LOBES, S1S2, CM-NSR, PATENT LEFT IJ....SEE FLOW SHEET....ABDOMEN IS SOFT AND ROUND WITH ACTIVE BS, PATENT F/C WITH C/Y UOP, NO EDEMA NOTED, ALL PPP, VSS, REPOSITIONED FOR COMFORT,
--- NOTE | 2016-11-06 21:15 | NUR ---
REPOSITIONED FOR COMFORT, ORAL CARE PROVIDED
--- NOTE | 2016-11-06 23:16 | NUR ---
REASSESSMENT COMPLETE, PT FOLLOWING COMMANDS, NO OTHER CHANGES NOTED, REPOSITIONED FOR COMFORT, ORAL CARE PROVIDED
[2016-11-07] VITALS (22 sets, daily range): BP systolic 98–144; BP diastolic 53–80
--- NOTE | 2016-11-07 01:30 | NUR ---
REPOSITIONED FOR COMFORT, ORAL CARE PROVIDED
--- NOTE | 2016-11-07 03:07 | NUR ---
CALL RECEIVED FROM XAVIERJOHN, PASSWORD VERIFIED. UPDATE GIVEN QUESTIONS ANSWERED.
[2016-11-07 04:11] LABS: BASOPHILS 0.4 % (0.0-2.0); EOSINOPHILS 5.2 % (0-7); HEMATOCRIT 27.2 % (36.0-48.0); HEMOGLOBIN 8.7 g/dL (12-16); IMMATURE GRANULOCYTES 4.1 % (0-5); LYMPHOCYTES 8.1 % (15-50); MCH 29.2 pg (26.0-34.0); MCV 91.3 fL (80.0-100.0); MEAN PLATELET VOLUME 9.9 fL (7.4-10.4); MONOCYTES 16.2 % (2-11); PLATELET COUNT 634 10x3/uL (130-400); RBC 2.98 10x6/uL (4.00-5.40); RDW 14.8 % (11.5-14.5); WBC 19.7 10x3/uL (4.8-10.8)
[2016-11-07 04:32] LABS: CALC OSMOLALITY 278 mosm/kg (275-300); CALCIUM 8.1 mg/dL (8.5-10.1); CARBON DIOXIDE 25.5 mmol/L (21.0-32.0); CHLORIDE - SERUM 106 mmol/L (98-107); CREATININE - SERUM 0.7 mg/dL (0.6-1.3); GLUCOSE 120 mg/dL (74-106); MAGNESIUM - SERUM 2.1 mg/dL (1.8-2.4); PHOSPHOROUS 3.4 mg/dL (2.5-4.9); POTASSIUM - SERUM 3.7 mmol/L (3.5-5.1); SODIUM 140 mmol/L (136-145); THYROID STIMULATING HORMONE 4.27 uIU/mL (0.36-3.74); UREA NITROGEN 11 mg/dL (7-18); eGFR NON AFRICAN AMERICAN 85 mL/min (90-120)
--- NOTE | 2016-11-07 05:27 | NUR ---
REPOSITIONED FOR COMFORT, ORAL CARE PROVIDED
--- NOTE | 2016-11-07 10:05 | NUR ---
NUTRITION MONITORING & EVAL CHART REVIEWED. PT REMAINS SEDATED ON VENT. TPN RUNNING @ 40 CC/HR. DIPRIVAN PROVIDING 765 KCAL PER DAY. TPN PROVIDING 1224 KCAL AND 41 GM PROTEIN PER DAY. TOTAL 1989 KCAL, 41 GM PROTEIN PER DAY. BMP ADDED TO AM LABS, RENEWED TPN ORDERS. RD FOLLOWING
--- NOTE | 2016-11-07 10:40 | NUR ---
DR MCKEON HERE THIS AM, REC'D AND NOTED NEW ORDERS. PLAN DISCUSSED WITH RT AND VALUER FOR TIME OF CT SCAN.
--- NOTE | 2016-11-07 11:49 | NUR ---
1150PT TO CT AND BACK, VSS, PT GILBERTO WELL, VENT MGNT BY RT.
--- NOTE | 2016-11-07 13:06 | NUR ---
PT FOLLOWING COMMAND ON CPAP TRIALS, RESP RATE HIGH 55 BUT PT DID BRING RESP RATE DOWN ON COMMAND. DR MCKEON HERE AND CT L CHESHERYL PULLED BY DR MCKEON. PT RESP RATE ELEVATED TO 55 AGAIN AND HR 104, SEDATION RESUMED AND VENT SETTING BACK TO SIMV BY RT.
--- NOTE | 2016-11-07 19:15 | NUR ---
REC'D TO CARE, RN FIELD PER FLOWSHEET. ON MECH VENT VIA OETT - SEE FLOWSHEET. IVF INFUSING TO L IJTL - SEE FLOWSHEET - WILL TITRATE DIPRIVAN PER ORDERS. RR 14, UNLABORED. NO SIGN OF DISTRESS. ALARMS ON.
--- NOTE | 2016-11-07 19:45 | NUR ---
DURAN PATTON UPDATED VIA PHONE WITH PASSWORD.
--- NOTE | 2016-11-07 21:00 | NUR ---
NO VISITORS, SPOKE WITH ANOTHER DAUGHTER VIA PHONE AND POC REVIEWED.
--- NOTE | 2016-11-07 23:12 | NUR ---
REASSESSMENT PER FLOWSHEET, NO ACUTE CHANGES. VSS. NO SIGN OF DISTRESS. CONT TURNING AND ORAL CARE, ARMS ELEVATED ON PILLOWS, FOOT DROP BOOTS IN USE.
[2016-11-08] VITALS (24 sets, daily range): BP systolic 103–161; BP diastolic 57–82
--- NOTE | 2016-11-08 00:55 | NUR ---
COMPLETE BATH AND LINEN CHANGE DONE. VSS. NO SIGN OF DISTRESS. ARMS ELEVATED ON PILLOWS. TO L SIDE WITH PILLOW.
--- NOTE | 2016-11-08 01:00 | NUR ---
REPOSITIONED UP IN BED TO L SIDE. ORAL CARE DONE. ROM DONE AND LOTION TO ASHY/DRY SKIN.
--- NOTE | 2016-11-08 03:08 | NUR ---
REASSESSMENT PER FLOWSHEET, NO ACUTE CHANGES. PCXR DONE.
[2016-11-08 04:38] LABS: BASOPHILS 0.3 % (0.0-2.0); EOSINOPHILS 5.9 % (0-7); HEMATOCRIT 25.9 % (36.0-48.0); HEMOGLOBIN 8.3 g/dL (12-16); IMMATURE GRANULOCYTES 3.4 % (0-5); LYMPHOCYTES 9.6 % (15-50); MCV 90.6 fL (80.0-100.0); MEAN PLATELET VOLUME 9.8 fL (7.4-10.4); MONOCYTES 16.6 % (2-11); NEUTROPHILS 64.2 % (40-80); PLATELET COUNT 718 10x3/uL (130-400); RBC 2.86 10x6/uL (4.00-5.40); RDW 14.7 % (11.5-14.5); WBC 17.6 10x3/uL (4.8-10.8)
[2016-11-08 04:55] LABS: CALC OSMOLALITY 277 mosm/kg (275-300); CALCIUM 8.3 mg/dL (8.5-10.1); CARBON DIOXIDE 27.4 mmol/L (21.0-32.0); CHLORIDE - SERUM 104 mmol/L (98-107); CREATININE - SERUM 0.7 mg/dL (0.6-1.3); GLUCOSE 101 mg/dL (74-106); MAGNESIUM - SERUM 2.3 mg/dL (1.8-2.4); PHOSPHOROUS 3.7 mg/dL (2.5-4.9); POTASSIUM - SERUM 3.7 mmol/L (3.5-5.1); SODIUM 139 mmol/L (136-145); UREA NITROGEN 12 mg/dL (7-18); eGFR NON AFRICAN AMERICAN 85 mL/min (90-120)
--- NOTE | 2016-11-08 05:00 | NUR ---
AM LAB WNL.
--- NOTE | 2016-11-08 09:00 | NUR ---
NUTRITION MONITORING & EVAL PT REMAINS SEDATED ON VENT. TPN AT 40 CC/HR RD FOLLOWING
--- NOTE | 2016-11-08 18:29 | NUR ---
0730-RECIEVED PER FLOW SHEET-STARTED CPAP TRIALS-DR MCKEON AT BEDSIDE -REVIEWED RUBBER CUTTER REPORT OF COLDER TOUCH TO R FOOT-DECREASED PPP-SCD REMOVED-R HAND COOL TO TOUCH-BOUNDING PULSE-L HEMATOMA TO WRIST AREA 0930-RR 16-RETURNED TO SIMV AND DIPRIVAN PER CURRENT WEANING CPAP TRIALS 1045-DR BAILEY AT BEDSIDE-PLACED ON CPAP AND DIPRIVAN STOPPED 1145-NOTED RR 30'S-DR BAILEY REMAINS IN UNIT-CPAP TRIAL STOPPED-AND REPLACED ON SIMV-DIPRIVAN RESTARTED-INFORMED OF R PP R HAND-STAFF CONCERN REGARDING L WRIST HEMATOMA-AND L SHOULDER-MALFORMATION-?POSSIBLE FALL AT HOME?-ORDERS RECIEVED AND NOTED 1250-US COMPLETED ORDERED 1430-REPOSITIONED AND L WRIST ASSESSED BY WOUND CARE NURSE-NO FURTHER TREATMENT-L SHOULDER XRAY DONE ORDERED 1500-SISTER AT
--- NOTE | 2016-11-08 18:36 | NUR ---
1515-SISTER AT [facility]-STATED NOT AWARE OF ANY BRUISING PRIOR TO ADMISSION-STATED IV ACCESS AT THAT SPOT PRIOR TO OR- 1600-DR MCKEON AT [facility]-PLACED DOPHOFF PER R NARE 8 FR -KUB ORDERED 1630-DOPHOFF REMOVED BY DR MCKEON-STATED NOT IN CORRECT POSITION-NO ADDITIONAL ATTEMPT FOR DOPHOFF OR ORDER TO PLACE- 181-SPOKE WITH SISTER-SPOKE STRONG CONCERN REGARDING CURRENT FAMILY DYNAMICS/DYSFUNCTION-INFORMED SAME IF NO POA ASSISGNED BY PT -THEN [place] LAW ORDER LIVING SPOUSE FOLLOWED BY OLDEST CHILD TO YOUNGEST TO LEGAL AGE-FOLLOWED BY PARENTS SISTER FEELS SCREWHEAD STONER AND POLISHER WAS CONTACTED-ENCOURAGED TO FIND NAME OF SAME
--- NOTE | 2016-11-08 19:00 | NUR ---
REPORT RECIEVED, INITIAL ASSESSMENT COMPELTE, PLEASE SEE FLOW SHEETS FOR DETAILS. PT INTUBATED AND SEDATED BUT OPENS EYES AND DOES ANSWER YES AND NO QUESTIONS ON 40 MCG/KG/MIN IF DIPROVAN. TPN INFUSING AT 40 ML/HR. ORAL CARE AND TURNING PROVIDED. BED LOW AND LOCKED. VSS, WILL CONTINUE TO MONITOR.
--- NOTE | 2016-11-08 21:00 | NUR ---
ORAL CARE AND TURNING PROVIDED. FAMILY IN ROOM, ANSWERED QUESTIONS TO BEST OF ABILITY. VSS, BED LOW AND LOCKED, CALL LIGHT IN REACH, WILL CONTINUE TO MONITOR.
--- NOTE | 2016-11-08 23:00 | NUR ---
REASSESSMENT COMPLETE, PLEASE SEE FLOW SHEETS FOR DETAILS. ORAL CARE AND TURNING PROVIDED. VSS, BED LOW AND LOCKED, RESTRAINTS CHECK AND SECURED WITH QUICK RELEASE KNOTS. WILL CONTINUE TO MONITOR.
[2016-11-09] VITALS (24 sets, daily range): BP systolic 111–143; BP diastolic 58–74
--- NOTE | 2016-11-09 01:00 | NUR ---
ORAL CARE AND TURNING PROVIDED. BED LOW AND LOCKED. VSS, WILL CONTINUE TO MONITOR.
--- NOTE | 2016-11-09 03:00 | NUR ---
REASSESSMENT COMPLETE, PLEASE SEE FLOW SHEETS FOR DETAILS. ORAL CARE AND TURNING PROVIDED. VSS, BED LOW AND LOCKED. WILL CONTINUE TO MONITOR.
[2016-11-09 04:45] LABS: BASOPHILS 0.4 % (0.0-2.0); EOSINOPHILS 4.9 % (0-7); HEMATOCRIT 24.6 % (36.0-48.0); HEMOGLOBIN 7.9 g/dL (12-16); IMMATURE GRANULOCYTES 1.9 % (0-5); LYMPHOCYTES 8.9 % (15-50); MCH 28.9 pg (26.0-34.0); MCHC 32.1 g/dL (31.0-37.0); MCV 90.1 fL (80.0-100.0); MEAN PLATELET VOLUME 9.5 fL (7.4-10.4); MONOCYTES 16.5 % (2-11); NEUTROPHILS 67.4 % (40-80); PLATELET COUNT 751 10x3/uL (130-400); RBC 2.73 10x6/uL (4.00-5.40); RDW 14.7 % (11.5-14.5); WBC 15.3 10x3/uL (4.8-10.8)
[2016-11-09 04:59] LABS: ALBUMIN 2.6 g/dL (3.4-5.0); ANION GAP 12.9 mmol/L (8-16); BILIRUBIN - DIRECT 0.5 mg/dL (0.00-0.30); BILIRUBIN - INDIRECT 0.29 mg/dL (0.00-1.00); BILIRUBIN - TOTAL 0.79 mg/dL (0.2-1.3); CALCIUM 8.2 mg/dL (8.5-10.1); CARBON DIOXIDE 25.9 mmol/L (21.0-32.0); CREATININE - SERUM 0.8 mg/dL (0.6-1.3); MAGNESIUM - SERUM 2.2 mg/dL (1.8-2.4); PHOSPHOROUS 3.4 mg/dL (2.5-4.9); POTASSIUM - SERUM 3.8 mmol/L (3.5-5.1); PROTEIN - SERUM 6.2 g/dL (6.4-8.2)
--- NOTE | 2016-11-09 05:00 | NUR ---
ORAL CARE AND TURNING PROVIDED. BED LOW AND LOCKED. RESTRAINTS REMOVED AND PULSES CHECKED, SECURED WITH QUICK RELEASE KNOTS. VSS, WILL CONTINUE TO MONITOR.
--- NOTE | 2016-11-09 06:44 | NUR ---
DECREASED SEDATION TO 20 MCG/KG/MIN PER RESPIRATORY FOR VENT WEANING PROCEDURES.
--- NOTE | 2016-11-09 12:22 | NUR ---
0715-TURNED DIPRIVAN OFF-CPAP TRIAL STARTED-PT AWAKE AND ALERT -ABLE TO BLINK EYES CORRECTLY-ATTEMPTED WEAK SQUEEZE WITH L HAND-NOTED RR INCREASED TO 30/MIN-ENCOURAGED DB-PER RT-PT DIFFICULTY COMPLYING-ADDED DIPRIVAN TO 5MCG FOR ADDITION SEDATION AND ATTEMPT TO DECREASE RR-
--- NOTE | 2016-11-09 12:41 | NUR ---
0800-RR 68-DIPRIVAN RETURNED TO 40 MCG-CPAP TRIAL STOPPED AND RETURNED TO PREVIOUS SETINGS PER RT 0815 RR 38-HR 128ST-DIPRIVAN BOLUS 10MG GIVEN FOR DAX GOAL 1-2-KBRN 0900-FAMILY AT [facility]-STATED NEED TO SPEAK WITH DR BAILEY-ENCOURAGED TO STAY IN WAITING RM UNTIL DR BAILEY ROUNDS THIS AM-UNKNOWN TIME-FAMILY AGREEABLE 1045-DR BAILEY IN UNIT AND SPOKE TO OLDEST DAUGHTER AND PT BROTHER IN LAW-ADDRESSED CONCERNS OF WEANING AND RECOVERY TIMELINE-QUESTION ADDRESSED BY DR BAILEY AND STRESSED EARLY PART OF POST OP RECOVERY-AT THIS TIME NOT ADDRESSING TRACHEOSTOMY/FEEDING TUBE- CVP DONE DIRECTED-7
--- NOTE | 2016-11-09 19:00 | NUR ---
REPORT RECIEVED, INITIAL ASSESSMENT COMPLETE, PLEASE SEE FLOW SHEETS FOR DETAILS. ORAL CARE AND TURNING PROVIDED. BED LOW AND LOCKED, VSS, WILL CONTINUE TO MONITOR.
--- NOTE | 2016-11-09 20:30 | NUR ---
STARTED UNIT 1 OF 2 OF PRBC.
--- NOTE | 2016-11-09 21:00 | NUR ---
ORAL CARE AND TURNING PROVIDED. BED LOW AND LOCKED. VSS, WILL CONTINUE TO MONITOR.
--- NOTE | 2016-11-09 23:00 | NUR ---
REASSESSMENT COMPLETE, PLEASE SEE FLOW SHEETS FOR DETAILS. UNIT 1 OF 2 OF PRBC INFUSING. VSS. BED LOW AND LOCKED. SIDE RAILS UP X3. SEDATED. PROPOFOL INCREASED TO 55 MCG/KG/MIN DUE TO PT AGGITATION AND SHAKING HEAD BACK AND FORTH. ORAL CARE AND TURNING PROVIDED. WILL CONTINUE TO MONITOR.
--- NOTE | 2016-11-09 23:45 | NUR ---
SMALL BM CLEANED UP. PT TURNED BACK TO RIGHT SIDE. TOLERATED WELL. WILL CONINTUE TO MONITOR.
[2016-11-10] VITALS (24 sets, daily range): BP systolic 116–152; BP diastolic 62–84
--- NOTE | 2016-11-10 00:05 | NUR ---
UNIT 1 OF 2 OF PRBC COMPLETE.
--- NOTE | 2016-11-10 00:15 | NUR ---
UNIT 2 OF 2 OF PRBC STARTED. VSS, WILL MONITOR.
--- NOTE | 2016-11-10 00:54 | NUR ---
ORAL CARE AND TURNING PROVIDED. BED LOW AND LOCKED. SIDE RAILS UP X3. WILL CONTINUE TO MONITOR.
--- NOTE | 2016-11-10 03:00 | NUR ---
REASSESSMENT COMPLETE, PLEASE SEE FLOW SHEETS FOR DETAILS. UNIT 2 OF 2 OF PRBC INFUSING ATT. ORAL CARE AND TURNING PROVIDED. VSS, BED LOW AND LOCKED. WILL CONTINUE TO MONITOR.
--- NOTE | 2016-11-10 03:15 | NUR ---
UNIT 2 OF 2 OF PRBC COMPETE.
[2016-11-10 04:25] LABS: BASOPHILS 0.5 % (0.0-2.0); EOSINOPHILS 4.4 % (0-7); HEMATOCRIT 29.5 % (36.0-48.0); IMMATURE GRANULOCYTES 1.7 % (0-5); LYMPHOCYTES 12.1 % (15-50); MCH 29.2 pg (26.0-34.0); MCHC 32.5 g/dL (31.0-37.0); MCV 89.7 fL (80.0-100.0); NEUTROPHILS 66.3 % (40-80); PLATELET COUNT 685 10x3/uL (130-400); RDW 14.3 % (11.5-14.5); WBC 13.3 10x3/uL (4.8-10.8)
[2016-11-10 04:26] LABS: HEMOGLOBIN 9.6 g/dL (12-16); RBC 3.29 10x6/uL (4.00-5.40)
[2016-11-10 04:50] LABS: ALKALINE PHOSPHATASE 333 U/L (46-116); ALT (SGPT) 91 U/L (10-68); AMYLASE - SERUM 54 U/L (25-115); BILIRUBIN - TOTAL 1.28 mg/dL (0.2-1.3); CALC OSMOLALITY 274 mosm/kg (275-300); CALCIUM 8.4 mg/dL (8.5-10.1); CARBON DIOXIDE 26.7 mmol/L (21.0-32.0); CHLORIDE - SERUM 103 mmol/L (98-107); CREATININE - SERUM 0.7 mg/dL (0.6-1.3); GLUCOSE 106 mg/dL (74-106); LIPASE 131 U/L (73-393); MAGNESIUM - SERUM 2.5 mg/dL (1.8-2.4); PHOSPHOROUS 3.7 mg/dL (2.5-4.9); POTASSIUM - SERUM 3.9 mmol/L (3.5-5.1); PROTEIN - SERUM 6.5 g/dL (6.4-8.2); SODIUM 137 mmol/L (136-145); UREA NITROGEN 15 mg/dL (7-18); eGFR NON AFRICAN AMERICAN 85 mL/min (90-120)
--- NOTE | 2016-11-10 05:00 | NUR ---
ORAL CARE AND TURNING PROVIDED. VSS, BED LOW AND LOCKED. WILL CONTINUE TO MONITOR.
--- NOTE | 2016-11-10 09:12 | NUR ---
0710-CPAP TRIAL ATTEMPTED BY RT-NOTED RR INCREASED FROM 18/MIN TO 60-DIPRIVAN OFF -PT AGITATED -SUCTIONED FOR NIL-NOTED BREATH SOUNDS CLEAR UPPER AND LOWER-WITH GOOD A/E ANGEL-PLACED DIPRIVAN AT 5MCG/KG/MIN-RT AND RN REMAIN AT BEDSIDE-MONITORED FOR ADDITIONAL 5-10 MIN ON CPAP TRIAL-NOTED O2 SAT-91-RR 54-RETURNED TO PREVIOUS SETTINGS AND PLACED ON DIPRIVAN 20MCG-RR 28-MONITORED AT [id number] RR INC TO 33-DAX 4-6-[id number] BOLUS 10MG RAPID BOLUS GIVEN--RESP RATE DECREASED TO 18/MIN-DAX DECREASED TO 3-WILL CONTINUE TO ASSESS-KBRN
--- NOTE | 2016-11-10 09:18 | NUR ---
0830-NOTED RR 20-30/MIN-DIPRIVAN TITRATED TO 40MCG -CURRENT DAX 3-4-GOAL DAX 2-O2 SAT 94%- ROM HELD AT THIS TIME -PT NOT TOLERATING ADDITIONAL STIMULI-DR FLEMING NOTIFIED OF CONSULT
--- NOTE | 2016-11-10 10:48 | NUR ---
0950-TURNED TO R SIDE-PREMED DIPRIVAN 10MG BOLUS-MAINTAIN DAX 1-2 WITH ADDITIONAL STIMULUS 1010-RT AT BEDSIDE-NOTED RR 52/MIN-DIPRIVAN BOLUS 10MG GIVEN FOR GOAL DAX 1-FACIAL GRIMACING AND FLINCHING NOTED COUGHING 1012 ADDITIONAL 10MG DIPRIVAN IVP GIVEN-FOR RR 58 AND CONTINUED ATTEMPT DAX 1-1013 DIPRIVAN INC TO 50MCG-STAT PORTABLE CHEST XRAY-DR BAILEY NOTIFIED -SPOKE WITH RT-ADDITIONAL VENT CHANGES MADE BY urturn AT [facility]-RETURNED TO SUPINE AND PLACED HIGH FOWLERS-NOTED RR DECREASED TO 38/MIN-CXR COMPLETED REMAINS IN HIGH FERRELL -RR 18-ADDITIONAL 10MG GIVEN
--- NOTE | 2016-11-10 11:47 | NUR ---
1110-DR BAILEY AT [facility]-REQUESTED CONSENT AND PREP FOR BRONCHOSCOPY AT BEDSIDE-NOTIFIED JOHN-DAUGHTER POA -TELEPHONE CONSENT [id number] SAVITA CALLED LEGAL JOINT POA-NOT AWARE OF INTENDED PROCEDURE-CONSENT OBATAINED FROM SAME-DISCUSSED WITH SAME BEST WAY TO DEAL WITH SIBLING DYSFUNCTION AND NOTIFICATION-NOTED 2ND DOCUMENTED INCIDENT JOHN NOT NOTIFYING SIBLING OF PROCEDURE OR CONDITION-SISTER SAVITA AT THIS TIME AGREED TO TAKE RESPONSIBILITY OF NOTIFYING OTHER POA AND THEN RETURNING CALL FOR CONSENT/NO CONSENT-CONFIRMED WITH SAVITA PT STILL WISHES TO BE DONATION-PAPER WORK AND CONTACT NUMBER ON CHART-POA PAPER FROM 2007-NAMING SINGLE POA PLACED AT BACK OF CHART -CURRENT 2011 POA-JOINT AT
[2016-11-10 16:09] LABS: LYMPH - BF 40 %; NEUT - BF 60 %
--- NOTE | 2016-11-10 19:30 | NUR ---
RECEIVED PATIENT SEDATED IN BED ON VENT, ASSESSMENT COMPLETES PER FLOWSHEET. PATIENT SEDATED, OPENS EYES AND WITHDRAWS FROM PAINFUL STIMULI. EYES PERRLA @ 3MM WITH SLUGGISH RESPONSE, SCLERA IS WHITE. ORAL/NASAL MUCOSA IS MOIST AND INTACT, ETT 8.0 @ 23CM R LIPLINE. S1/S2 NOTED WITH PATIENT SINUS TACH ON TELEMETRY WITH HR 110, RHYTHMIC AND REGULAR. VENT SETTINGS A/C R-12 V-550 30% P-8 PS-25, LUNG SOUNDS CLEAR BILATERAL UPPER WITH DIMINISHED LOWER. ABDOMEN ROUND AND SOFT WITH BOWEL SOUNDS HYPOACTIVE X4, LAP SITE INCISION X3 NO DRAINAGE NOTED. CISNEROS SECURED IN PLACE VIA STATLOCK, YELLOW CONCENTRATED URINE NOTED IN COLLECTION. PASSIVE ROM ALL EXTREMITIES WITH WEAKNESS NOTED, ALL PULSES WEAKLY PALPABLE. L IJ CVL NOTED, DRESSING INTACT WITH FLUIDS INFUSING. L WRIST BURN MALINI, CLEANED AND CREAM APPLIED. NO FURTHER NEEDS AT THIS TIME, ALL VSS AND WILL CONTINUE TO MONITOR.
--- NOTE | 2016-11-10 21:00 | NUR ---
NO VISITORS AT THIS TIME, ORAL CARE/SUCTIONING PROVIDED. PATIENT REPOSITIONED FOR COMFORT, NO FURTHER NEEDS AT THIS TIME. ALL VSS AND WILL CONTINUE TO MONITOR.
--- NOTE | 2016-11-10 23:00 | NUR ---
REASSESSMENT COMPLETED PER FLOWSHEET, PATIENT RESTING IN BED ON VENT. S1/S2 NOTED WITH PATIENT SINUS TACH ON TELEMETRY WITH HR 110, RHYTHMIC AND REGULAR. VENT SETTINGS UNCHANGED FROM PREVIOUS ASSESSMENT, OXYGEN SAT 97% ON 30% O2. ORAL CARE/SUCTIONING PROVIDED, PATIENT REPOSITIONED FOR COMFORT. ALL PULSES WEAKLY PALPABLE WITH ALL VSS, NO FURTHER NEEDS AT THIS TIME AND WILL CONTINUE TO MONITOR.
[2016-11-11] VITALS (24 sets, daily range): BP systolic 125–154; BP diastolic 66–84
--- NOTE | 2016-11-11 01:00 | NUR ---
PATIENT SEDATED IN BED ON VENT, ORAL CARE SUCTIONING PROVIDED. PATIENT REPOSITIONED FOR COMFORT, ALL LINES CHANGED PER PROTOCOL. NO FURTHER NEEDS AT THIS TIME, ALL VSS AND WILL CONTINUE TO MONITOR.
--- NOTE | 2016-11-11 03:05 | NUR ---
REASSESSMENT COMPLETED PER FLOWSHEET, PATIENT SEDATED ON VENT. PATIENT SINUS TACH ON TELEMETRY WITH HR 103, RHYTHMIC AND REGULAR. VENT SETTINGS UNCHANGED FROM PREVIOUS ASSESSMENT, OXYGEN SAT 98% ON 35% O2. ORAL CARE SUCTIONING PROVIDED, PATIENT REPOSITIONED FOR COMFORT. CREAM APPLIED TO L WRIST, SKIN IS RED AND INTACT WITH BLISTER. NO FURTHER NEEDS AT THIS TIME, ALL VSS AND WILL CONTINUE TO MONITOR.
[2016-11-11 05:01] LABS: BASOPHILS 0.6 % (0.0-2.0); EOSINOPHILS 6.2 % (0-7); HEMATOCRIT 28.5 % (36.0-48.0); IMMATURE GRANULOCYTES 0.9 % (0-5); LYMPHOCYTES 12.6 % (15-50); MCH 30.9 pg (26.0-34.0); MCHC 35.1 g/dL (31.0-37.0); NEUTROPHILS 64.7 % (40-80); PLATELET COUNT 703 10x3/uL (130-400); RBC 3.24 10x6/uL (4.00-5.40); RDW 14.8 % (11.5-14.5); WBC 12.4 10x3/uL (4.8-10.8)
[2016-11-11 05:41] LABS: BILIRUBIN - TOTAL 1.01 mg/dL (0.2-1.3); CREATININE - SERUM 0.8 mg/dL (0.6-1.3); MAGNESIUM - SERUM 2.3 mg/dL (1.8-2.4); PHOSPHOROUS 3.6 mg/dL (2.5-4.9); PROTEIN - SERUM 6.6 g/dL (6.4-8.2); TROPONIN-I 0.077 ng/mL (0.000-0.060)
--- NOTE | 2016-11-11 09:35 | NUR ---
0700 PT SEDATED AND NOT FOLLOWING COMMANDS. ON PROPOFOL AND VENT SETTINGS REMAIN UNCHANGED. LUNG SOUNDS COURSE/CRACKLES IN LUNGS BILAT. PT REMAINS IN SINUS TACH WITH RATE OF 104. HYPOACTIVE BOWEL SOUNDS NOTED X4. BURN MALINI NOTED AND DOCUMENTED ON LEFT ARM/WRIST.VITAL SIGNS STABLE. WILL CONTINUE TO MONITOR
--- NOTE | 2016-11-11 09:39 | NUR ---
0800 RT ATTEMPTED TO WEAN PT AND ADJUST VENT TO SIMV. PT DID NOT TOLERATE WELL. RATE INCREASING TO 50. AFTER 2 MINUTES PT CHANGED BACK TO ASSIST CONTROL. NO FURTHER CHANGES.
--- NOTE | 2016-11-11 10:12 | NUR ---
NUTRITION MONITORING & EVAL CHART REVIEWED. PT REMAINS SEDATED ON VENT. ADJUSTED/RENEWED, TPN. AM LABS PER DR. LAUREANO. RD FOLLOWING
--- NOTE | 2016-11-11 10:33 | NUR ---
1000 PT FSBS CHECKED PER ORDER AND 111 WITHIN NORMAL LIMITS. NO FURTHER CHANGES AT THIS TIME
--- NOTE | 2016-11-11 12:37 | NUR ---
1200 NO CHANGES IN PT STATUS FROM PREVIOUS ASSESSMENT. PT ADEQUATELY SEDATED AT THIS TIME. VITAL SIGNS STABLE
--- NOTE | 2016-11-11 13:09 | NUR ---
1300 PHYSICAL THERAPY COMPLETED RANGE OF MOTION ON PT. PT TURNED IN BED AND SUCTIONED. VITAL SIGNS STABLE.
--- NOTE | 2016-11-11 16:14 | NUR ---
[address] LAYTON ABOUT PT STATUS. FAMILY GIVEN UPDATE. PT TURNED AND ORAL CARE PERFORMED. VITAL SIGNS STABLE.
--- NOTE | 2016-11-11 17:15 | NUR ---
1700 CONSENT SIGNED OVER THE PHONE PER DAUGHTER VINELI SALAZAR (POA) FOR CVL AND TRACHEOSTOMY PLACEMENT. VITAL SIGNS STABLE. NO FURTHER CHANGES
--- NOTE | 2016-11-11 19:15 | NUR ---
REPORT RECIEVED, SHIFT ASSESSMENT COMPELTE, PT IS SEDATED ON VENT, ON 40% FIO2 WITH 97% O2 SAT. LUNGS CLEAR IN B/L UPPER LOBES, DIMINISHED IN B/L LOWER LOBES, S1S2, CM-ST, PATENT LEFT IJ CVL...SEE FLOW SHEET...ABDOMEN IS SOFT AND ROUND WITH HYPO BS, STERI STRIPS TO LAP INCISIONS X5, PATENT F/C WITH CONCENTRATED UOP, EDEMA NOTED IN ALL EXTREMETIES, ALL PPP, VSS, WILL CON'T TO MONITOR
--- NOTE | 2016-11-11 21:30 | NUR ---
REPOSITIONED FOR COMFORT, ORAL CARE PROVIDED
--- NOTE | 2016-11-11 23:18 | NUR ---
COMPLETE BATH AND LINEN CHANGE, PT TOLERATED WELL, WILL CON'T TO MONITOR
[2016-11-12] VITALS (24 sets, daily range): BP systolic 120–151; BP diastolic 64–81
--- NOTE | 2016-11-12 01:30 | NUR ---
REPOSITIONED FOR COMFORT, ORAL CARE PROVIDED
--- NOTE | 2016-11-12 03:22 | NUR ---
REASSESSMENT COMPLETE, NO CHANGES NOTED, RAD IN ROOM FOR DAILY CXR,
[2016-11-12 03:51] LABS: BASOPHILS 0.6 % (0.0-2.0); EOSINOPHILS 9.1 % (0-7); HEMATOCRIT 30.9 % (36.0-48.0); HEMOGLOBIN 9.9 g/dL (12-16); IMMATURE GRANULOCYTES 0.8 % (0-5); LYMPHOCYTES 9.1 % (15-50); MCH 28.9 pg (26.0-34.0); MEAN PLATELET VOLUME 10.1 fL (7.4-10.4); MONOCYTES 16.4 % (2-11); PLATELET COUNT 783 10x3/uL (130-400); RBC 3.43 10x6/uL (4.00-5.40); RDW 14.9 % (11.5-14.5); WBC 11.9 10x3/uL (4.8-10.8)
[2016-11-12 03:53] LABS: MCV 90.1 fL (80.0-100.0)
[2016-11-12 04:10] LABS: ALBUMIN 2.8 g/dL (3.4-5.0); ALKALINE PHOSPHATASE 273 U/L (46-116); ALT (SGPT) 77 U/L (10-68); CALC OSMOLALITY 274 mosm/kg (275-300); CALCIUM 8.2 mg/dL (8.5-10.1); CARBON DIOXIDE 25.6 mmol/L (21.0-32.0); CHLORIDE - SERUM 103 mmol/L (98-107); CREATININE - SERUM 0.7 mg/dL (0.6-1.3); GLUCOSE 123 mg/dL (74-106); PHOSPHOROUS 3.7 mg/dL (2.5-4.9); POTASSIUM - SERUM 4.3 mmol/L (3.5-5.1); PROTEIN - SERUM 6.7 g/dL (6.4-8.2); SODIUM 136 mmol/L (136-145); UREA NITROGEN 17 mg/dL (7-18); eGFR NON AFRICAN AMERICAN 85 mL/min (90-120)
[2016-11-12 04:11] LABS: MAGNESIUM - SERUM 2.9 mg/dL (1.8-2.4)
--- NOTE | 2016-11-12 05:29 | NUR ---
REPOSITIONED FOR COMFORT ORAL CARE PROVIDED
--- NOTE | 2016-11-12 08:04 | NUR ---
0700 PT SEDATED ON VENT AT THIS TIME WITH SETTINGS UNCHANGED. NORMAL SINUS ON MONITOR. S1S2 NOTED. LUNG SOUNDS COURSE WITH CRACKLES BILATERALLY. HYPOACTIVE BOWEL SOUNDS X4. CVL PATENT DRY AND INTACT. FOOT DROP BOOTS ON AND ADJUSTED. RESTRAINTS CHECKED AND SECURED. ROM PERFORMED IN EXTREMITIES. VITAL SIGNS STABLE.
--- NOTE | 2016-11-12 08:17 | EC ---
PATIENT:RYLIE LUJAN DATE OF SERVICE: 10/30/16 SEX: F MEDICAL RECORD: [id number] DATE OF : 39 LOCATION:[facility] AGE OF PATIENT: 81 ADMISSION DATE: 10/30/16 REFERRING PHYSICIAN: INTERPRETING PHYSICIAN: MARIBELL MARIA M.D. ECHOCARDIOGRAM REPORT ECHO CHARGES 4 ECHO COMPLETE CLINICAL DIAGNOSIS: HYPOTENSION/BRADYCARDIA ECHOCARDIOGRAPHIC MEASUREMENTS (adult normal given) AC root (d.<3.7cm) 3.3 LV Septum d (<1.2 cm> 1.5 Valve Excursion 2.0 LV Septum (systole) 1.9 Left Atria (s.<4.0cm> 3.3 LVPW d(<1.2cm) 1.3 RV (d.<2.3cm) 4.1 LVPW (sytole) 1.7 LV diastole(<5.6CM) 4.2 MV E-F(>70mm/sec) LV systole 2.4 LVOT Diameter 1.6 MV exc.(>10mm) 1.5 Est.ejection fraction (50-75%) Pericardial Effusion N DOPPLER: LVIT A 70.0 E 85.0 LA RVSP 48 LVOT 92 AOP1/2T Asc. Ao 120 RVOT 90 RA PA 124 AV Gradient Peak 5.74 AV Mean 2.60 AV Area 1.7 MV Gradient Peak 3.88 MV Mean 1.80 MV Area COMMENTS: Burial Vault Setter: Min GRESHAM Credit Collections Rep:Min Maria TAPE# PACS DATE OF SERVICE: 10/31/2016 REFERRING PHYSICIAN: Av Bennett MD. INDICATIONS: Hypotension, bradycardia. DESCRIPTION: Left ventricle demonstrates left ventricular hypertrophy. No wall motion abnormalities are seen. Estimated ejection fraction is 60%. Mitral valve is structurally normal. There is mild regurgitation seen. Left atrium is normal in size. The aortic valve is trileaflet. There is no stenosis or ECHOCARDIOGRAM REPORT [id number] RYLIE LUJAN regurgitation seen. Right ventricle is mildly dilated. Tricuspid valve is structurally normal. There is mild regurgitation noted. Right ventricular systolic pressures mildly elevated at 48 mmHg. There is no pericardial effusion noted. IMPRESSION: 1. Left ventricular hypertrophy with preserved ejection fraction of 60% with no wall motion abnormalities. 2. Mild mitral regurgitation. 3. Mild tricuspid regurgitation. TRANSINT:[id number] Voice Confirmation ID: [id number] DOCUMENT ID: [id number] MARIBELL MARIA M.D. at 0817 CC: [id number] DICTATION DATE: 11/01/16 0749 OFFICE RECEPTIONIST: 11/01/16 0947 ADM IN [facility] [address] [id number]
--- NOTE | 2016-11-12 09:41 | NUR ---
0900 PT REPOSITIONED IN BED. VITAL SIGNS STABLE AT THIS TIME. WILL CONTINUE TO MONITOR.
--- NOTE | 2016-11-12 09:57 | NUR ---
NUTRITION MONITORING & EVAL CHART REVIEWED. PT REMAINS SEDATED ON VENT. FOR TRACH TODAY. RECOMMEND PEG WHEN MEDICALLY FEASIBLE. HYPERMAGNESEMIA NOTED. SPOKE WITH PHARMACY, ADJUSTED TPN. RD FOLLOWING
--- NOTE | 2016-11-12 11:36 | NUR ---
1100 PT STABLE AT THIS TIME. CALLED DR ALCARAZ AND NO PEG TUBE WILL BE PLACED AT THIS TIME. TRACH AND CVL PLANNED FOR TODAY. VITAL SIGNS STABLE
--- NOTE | 2016-11-12 13:18 | NUR ---
1230 DR ALCARAZ PERFORMED TRACHEOSTOMY INSERTION AT BEDSIDE VIA SCOPE WITH RN AND WEIGHT CONTROL LECTURER AT BEDSIDE. TRACH SIZE 8, DRESSING APPLIED. PT TOLERATED PROCEDURE WELL. VITAL SIGNS STABLE. PROPOFOL TITRATED NEEDED. FRESH TRACH PRECAUTIONS INITIATED.
--- NOTE | 2016-11-12 15:08 | NUR ---
1500 PT REPOSITIONED WITH WEAVER AXMINSTER AT BEDSIDE. UPDATE GIVEN TO FAMILY. VITAL SIGNS STABLE. NO EVIDENCE OF BLEEDING AT NEW TRACH SITE. WILL CONTINUE TO MONITOR.
[2016-11-12 17:11] LABS: ACID FAST SMEAR Negative (()); AFB SPECIMEN PROCESSING Concentration (())
--- NOTE | 2016-11-12 17:39 | NUR ---
1715 NEW CVL PLACED AT BEDSIDE PER DR ALCARAZ. ACCESS IN LEFT SUBCLAVIAN WITH PRN ADAPTERS AND CONNECTED TO LINES. OLD LEFT IJ D/C AND TIP COLLECTED IN STERILE SPECIMEN CUP FOR LAB. PT TOLERATED PROCEDURE WELL. FRESH TRACH SITE REMAINS CLEAN DRY AND INTACT. WILL CONTINUE TO MONITOR.
--- NOTE | 2016-11-12 19:30 | NUR ---
REPORT RECIEVED, SHIFT ASSESSMENT COMPLETE, PT IS SEDATED ON VENT, 8.0 TRACH, ON 40% FIO2 WITH 97% O2 SAT. LUNGS CLEAR IN B/L UPPER LOBES, DIMINISHED IN B/L LOWER LOBES, S1S2, CM-NSR, PATENT LEFT SC CVL...SEE FLOW SHEET...ABDOMEN IS SOFT AND ROUND WITH ACTIVE BS, PATENT F/C WITH YELLOW UOP, EDEMA NOTED IN ALL EXTREMETIES, ALL PPP, VSS, WILL CON'T TO MONITOR
--- NOTE | 2016-11-12 21:15 | NUR ---
NO VISITORS AT THIS TIME, WILL CON'T TO MONITOR
--- NOTE | 2016-11-12 23:09 | NUR ---
REASSESSMENT COMPLETE, NO CHANGES NOTED, PT RESTING COMFORTABLY AT THIS TIME, VSS, WILL CON'T TO MONITOR
[2016-11-13] VITALS (24 sets, daily range): BP systolic 132–155; BP diastolic 65–84
--- NOTE | 2016-11-13 01:00 | NUR ---
REPOSITONED FOR COMFORT, ORAL CARE PROVIDED
--- NOTE | 2016-11-13 03:00 | NUR ---
REASSESSMENT COMPLETE, NO CHANGES NOTED, PT RESTING AT THIS TIME, NO NEEDS NOTED, WILL CON'T TO MONITOR
[2016-11-13 03:56] LABS: BASOPHILS 0.8 % (0.0-2.0); EOSINOPHILS 14.2 % (0-7); HEMATOCRIT 31.8 % (36.0-48.0); IMMATURE GRANULOCYTES 0.8 % (0-5); LYMPHOCYTES 13.4 % (15-50); MCH 28.6 pg (26.0-34.0); MCHC 31.4 g/dL (31.0-37.0); MCV 90.9 fL (80.0-100.0); MEAN PLATELET VOLUME 10.4 fL (7.4-10.4); MONOCYTES 13.4 % (2-11); NEUTROPHILS 57.4 % (40-80); PLATELET COUNT 798 10x3/uL (130-400); WBC 11.8 10x3/uL (4.8-10.8)
[2016-11-13 04:12] LABS: ALBUMIN 2.9 g/dL (3.4-5.0); ALKALINE PHOSPHATASE 226 U/L (46-116); ALT (SGPT) 63 U/L (10-68); BILIRUBIN - TOTAL 0.61 mg/dL (0.2-1.3); CALC OSMOLALITY 273 mosm/kg (275-300); CALCIUM 8.3 mg/dL (8.5-10.1); CARBON DIOXIDE 23.7 mmol/L (21.0-32.0); CHLORIDE - SERUM 103 mmol/L (98-107); CREATININE - SERUM 0.7 mg/dL (0.6-1.3); GLUCOSE 104 mg/dL (74-106); MAGNESIUM - SERUM 2.4 mg/dL (1.8-2.4); PHOSPHOROUS 3.2 mg/dL (2.5-4.9); POTASSIUM - SERUM 4.2 mmol/L (3.5-5.1); PROTEIN - SERUM 6.7 g/dL (6.4-8.2); SODIUM 136 mmol/L (136-145); UREA NITROGEN 18 mg/dL (7-18); eGFR NON AFRICAN AMERICAN 85 mL/min (90-120)
--- NOTE | 2016-11-13 05:05 | NUR ---
REPOSITIONED FOR COMFORT, ORAL CARE PROVIDED
--- NOTE | 2016-11-13 07:00 | NUR ---
REPORT RECEIVED. ASSESSMENT COMPLETED. PATIENT RESTING COMFORTABLY AT THIS TIME.
--- NOTE | 2016-11-13 09:00 | NUR ---
NO VISITORS AT THIS TIME.
--- NOTE | 2016-11-13 09:50 | NUR ---
PROPOFOL DECREASED TO [address] LAUREANO'S REQUEST. HE STATED THAT HE WANTS HER TO WAKE UP MORE, JUST NOT TO LET HER MOVE HER HEAD/NECK MUCH.
--- NOTE | 2016-11-13 10:43 | NUR ---
SPOKE WITH DAUGHTER ON THE PHONE. ALL QUESTIONS ANSWERED.
--- NOTE | 2016-11-13 10:44 | NUR ---
PATIENTS SEDATION INCREASED TO 40 MCG SECONDARY TO PATIENT SHAKING HER HEAD NO. DO NOT WANT HER TO DISLODGE HER TRACH. WILL MONITOR AND INCREASE SEDATION IF NEED BE.
--- NOTE | 2016-11-13 12:07 | NUR ---
PATIENTS SISTER HERE FOR VISITATION. QUESTIONS ANSWERED.
--- NOTE | 2016-11-13 14:10 | NUR ---
PATIENTS SEDATION WAS DECREASED TO 35 MCG AND THEN 30 MCG. SHE IS CURRENTLY RESTING COMFORTABLY AT 30 MCG/KG/MIN. WILL CONTINUE TO MONITOR AND ADJUST NECESSARY.
--- NOTE | 2016-11-13 15:28 | NUR ---
PATIENTS DAUGHTER HERE FOR VISITATION. QUESTIONS ANSWERED. SHE REQUESTED THIS NURSE AT BEDSIDE AND QUESTIONED ME TO WHAT THE MALINI ON HER NECK WAS AND WHY THERE WAS A DRESSING ON HER RIGHT WRIST. EXPLAINED THAT THE AREA ON HER NECK LOOKES LIKE AND ABRASION SECONDARY TO THE DRESSINGS BEING PUT ON AND PULLED OFF FROM HER IJ THAT WAS REPLACED. THEN EXPLAINED THAT I PUT A DRESSING OVER THE SCABBED AREA TO HER WRIST SO THAT THE RESTRAINTS DID NOT RUB UP ON THAT AREA SECONDARY TO THE RUBBING MAY PREVENT HEALING. SHE WAS OK WITH THIS. THEN SHE WANTED TO KNOW HOW MANY DAYS LONGER THAT SHE WOULD BE ON THE VENT. IT WAS EXPLAINED THAT THERE IS NO DEFINATE ANSWER AT THIS TIME. EXPAINED THAT EACH DAY WE WOULD TRY TO WEAN HER, BUT ULTIMATELY IT WOULD DEPEND ON HER TO WHEN SHE WOULD BE OFF. EXPLAINED THAT IF WE TRIED TO STOP BEFORE SHE WAS READY THAT WE WOULD JUST HAVE TO START THE PROCESS ALL OVER AGAIN. SHE BECAME TEARFUL AT THIS TIME AND SAID THAT SHE DOES NOT THINK THAT THE PATIENT IS GOING TO BE OK WHEN SHE WAKES UP "WITH THAT THING IN HER THROAT". SHE SAID THAT HER MOM NEVER WANTED SOMETHING LIKE THAT. IT WAS EXPLAINED THAT A LOT OF THE TIME THE TRACH'S ARE TEMPORARY, BUT ONLY TIME WOULD TELL. SHE SHOOK HER HEAD YES. SHE WROTE SOME THINGS DOWN IN HER SPIRAL NOTEBOOK AND THEN SAID THAT SHE WAS GOING TO LEAVE FOR NOW. DENIES ANY FURTHER QUESTIONS.
[2016-11-13 17:12] LABS: FUNGUS STAIN Final report (())
--- NOTE | 2016-11-13 18:09 | NUR ---
PATIENTS DAUGHTER HERE FROM [employer]. QUESTIONS ANSWERED. PATIENT DID OPEN EYES BRIEFLY AT THE SOUND OF HER VOICE.
--- NOTE | 2016-11-13 18:19 | NUR ---
PATIENTS HR ELEVATING SLIGHTLY. NOW 111-113, INCREASED SEDATION TO 35 MCG/KG/MIN.
--- NOTE | 2016-11-13 19:36 | NUR ---
REPORT RECIEVED. ASSESSMENT COMPLETE PER FLOW SHEET .VSS PT SEDATED EYES PERRLA 3MM BRISK. TRACH PATENT NO BLEEDING REDDNESS SWELLING OR DRAINAGE AT SITE. ORAL CARE ADM. O2 VIA VENT A/C 40% REFER TO FLOW SHEET FOR FULL SETTINGS. O2 SAT 97% RUL RML MARK CRACKLES HEARD. BS HYPO ACTIVE X4. GENERALIZED EDEMA NOTED X4 EXTREMETIES. BILAT RADIAL PEDAL PULSES +2. NEEDS MET. VSS.WILL CONTINUE TO MONITOR.
--- NOTE | 2016-11-13 21:00 | NUR ---
NO VISITORS AT THIS TIME, WILL CON'T TO MONITOR
--- NOTE | 2016-11-13 23:30 | NUR ---
REASSESSMENT COMPLETE, NO CHANGES NOTED, REPOSITIONED FOR COMFORT, ORAL CARE PROVIDED,
[2016-11-14] VITALS (25 sets, daily range): BP systolic 131–170; BP diastolic 70–89
--- NOTE | 2016-11-14 01:00 | NUR ---
NO NEEDS NOTED, WILL CON'T TO MONITOR
--- NOTE | 2016-11-14 02:15 | NUR ---
FAMILY CALLED; SPOKE WITH FAMILY. UPDATE GIVEN.
--- NOTE | 2016-11-14 03:00 | NUR ---
REASSESSMENT COMPLETE, NO CHANGES NOTED, RESTING COMFORTABLY, WILL CON'T TO MONITOR
[2016-11-14 04:23] LABS: BASOPHILS 0.8 % (0.0-2.0); EOSINOPHILS 11.8 % (0-7); HEMATOCRIT 31.3 % (36.0-48.0); HEMOGLOBIN 9.9 g/dL (12-16); IMMATURE GRANULOCYTES 0.9 % (0-5); LYMPHOCYTES 16.2 % (15-50); MCH 28.6 pg (26.0-34.0); MCHC 31.6 g/dL (31.0-37.0); MCV 90.5 fL (80.0-100.0); MEAN PLATELET VOLUME 10.4 fL (7.4-10.4); MONOCYTES 12.3 % (2-11); PLATELET COUNT 797 10x3/uL (130-400); RBC 3.46 10x6/uL (4.00-5.40); WBC 12.8 10x3/uL (4.8-10.8)
[2016-11-14 04:48] LABS: ALKALINE PHOSPHATASE 190 U/L (46-116); ALT (SGPT) 51 U/L (10-68); BILIRUBIN - TOTAL 0.65 mg/dL (0.2-1.3); CALC OSMOLALITY 272 mosm/kg (275-300); CALCIUM 8.7 mg/dL (8.5-10.1); CARBON DIOXIDE 24.5 mmol/L (21.0-32.0); CHLORIDE - SERUM 102 mmol/L (98-107); CREATININE - SERUM 0.7 mg/dL (0.6-1.3); GLUCOSE 112 mg/dL (74-106); POTASSIUM - SERUM 4.3 mmol/L (3.5-5.1); PROTEIN - SERUM 6.8 g/dL (6.4-8.2); SODIUM 135 mmol/L (136-145); UREA NITROGEN 17 mg/dL (7-18); eGFR NON AFRICAN AMERICAN 85 mL/min (90-120)
--- NOTE | 2016-11-14 05:15 | NUR ---
BATH AND LINEN CHANGE, LARGE LIQUID BM AT THIS TIME,
--- NOTE | 2016-11-14 07:00 | NUR ---
REPORT RECEIVED. ASSESSMENT COMPLETED. PATIENT IN SEMIFOWLERS POSITION WITH EYES CLOSED. NO VISUAL CUES OF DISTRESS NOTED. ORAL CARE AND MANAV CARE COMPLETED AT THIS TIME.
[2016-11-14 08:07] LABS: MAGNESIUM - SERUM 2.1 mg/dL (1.8-2.4); PHOSPHOROUS 4.1 mg/dL (2.5-4.9)
--- NOTE | 2016-11-14 08:50 | NUR ---
SEDATION DECREASED TO 40MCG/KG/MIN. WILL MONITOR.
--- NOTE | 2016-11-14 09:30 | NUR ---
NO VISITORS AT THIS TIME. PATIENT REMAINS RESTING WITHOUT ANY VISUAL CUES OF DISTRESS NOTED.
--- NOTE | 2016-11-14 09:53 | NUR ---
NUTRITION MONITORING & EVAL CHART REVIEWED. PT REMAINS SEDATED ON VENT. DIPRIVAN @ 26.7 CC/HR PROVIDING 705 KCAL PER DAY. TPN @ 40 CC/HR PROVIDING 980 KCAL, 41 GM PROTEIN PER DAY. TOTAL 1685 KCAL, 41 GM PROTEIN PER DAY. ~ 30 KCAL PER KG IBW. MAG AND PHOS ADDED TO AM LABS, TPN ADJUSTED AND RENEWED AT PRESENT RATE. RD FOLLOWING
--- NOTE | 2016-11-14 10:31 | NUR ---
PATIENT DECREASED TO 30MCG/KG/MIN OF PROPOFOL. WILL SEE HOW SHE DOES AND DECREASE MORE IF ABLE.
--- NOTE | 2016-11-14 11:37 | NUR ---
SPOKE WITH PATIENTS DAUGHTER ON THE PHONE, UPDATE GIVEN. SPOKE AROUND IN CIRCLES WITH HER. UNSURE HOW MUCH SHE TRUELY UNDERSTANDS WHAT IS BEING TOLD TO HER.
--- NOTE | 2016-11-14 13:33 | NUR ---
SEDATION DOWN TO 20 MCG/KG/MIN. WILL MONITOR.
--- NOTE | 2016-11-14 14:10 | NUR ---
PATIENT WAKING UP MORE. SHE KEEPS TRYING TO CLEAR HER THROAT. HAVE DISCUSSED WITH HER THAT SHE HAS A TRACH IN PLACE NOW THAT IS ASSISTING IN HER BREATHING. PATIENT HAS TEARED UP, IT HAS BEEN EXPLAINED THAT THIS CAN BE TEMPORARY BUT AT THIS TIME IS WHAT NEEDED TO BE DONE TO HELP HER GET BETTER. SHE HAS STOPPED TRYING TO CLEAR HER THROAT AND HAS CLOSED HER EYES. WILL CONTINUE TO ENCOURAGE HER.
--- NOTE | 2016-11-14 14:39 | NUR ---
SEDATION INCREASED BACK TO 30 MCG/KG/MIN SECONDARY TO HEART RATE CLIMBING. CURRENTLY 136
--- NOTE | 2016-11-14 17:07 | NUR ---
PATIENT CHANGED AND REPOSITIONED FOR COMFORT. ORAL CARE PERFORMED. PATIENT RESTING COMFORTABLY AT THIS TIME.
--- NOTE | 2016-11-14 19:45 | NUR ---
SHIFT ASSESSMENT COMPLETED. SEE ASSESSMENT FLOWSHEET. ON VENT PER 8.0 TRACH MIDLINE. SITE WNL WITH AN ABRASIONS/BURN TYPE SKIN ULCER. GRIMACES WITH ORAL CARE AND WITHDRAWS FROM PAIN. LEFT FA DRSG NOTED-C/D/I. HARDENED BREAST NOTED-POSSIBLE IMPLANTS. BILATERAL WRIST RESTRAINTS IN USE TO PREVENT REMOVAL OF VENT/TRACH. LEFT SC CVL NOTED WITH MANIFOLD AND IV GTTS. TPN GOING TO WHITE PORT OF CVL. TEMP-101.9 AXILLARY. COVERS REMOVED. CISNEROS TO GRAVITY-CLEAR YELLOW URINE WITH SEDIMENT NOTED. BILATERAL LE'S IN FOOT DROP BOOTS AND ELEVATED. SCD'S IN USE TO BILATERAL LE'S. WILL MONITOR.
--- NOTE | 2016-11-14 20:20 | NUR ---
DR. GOODMAN CALLED AND MADE AWARE OF [facility] TROUGH. NEW ORDERS RECEIVED.
--- NOTE | 2016-11-14 20:30 | NUR ---
JOHN, DAUGHTER CALLED TO GET INFO AFTER PASSWORD OBTAINED, JOHNATHAN ANSWERED. ASKING MULTIPLE QUESTIONS SUCH WHAT ANTIBIOTICS SHE IS ON ETC.
--- NOTE | 2016-11-14 21:00 | NUR ---
BLOOD CULTURES DRAWN FROM BLUE PORT OF LEFT SC CVL.
--- NOTE | 2016-11-14 22:00 | NUR ---
TURNED AND REPOSITIONED TO LEFT SIDE. ORAL CARE COMPLETED. NO ACUTE DISTRESS NOTED. WILL MONITOR.
--- NOTE | 2016-11-14 22:30 | NUR ---
RADHA GONZALEZ AT BEDSIDE TO DRAW PERIPHERAL BLOOD CULTURES.
--- NOTE | 2016-11-14 23:45 | NUR ---
REASSESSMENT COMPLETED. SEE ASSESSMENT FLOWSHEET.
[2016-11-15] VITALS (23 sets, daily range): BP systolic 125–175; BP diastolic 66–97
--- NOTE | 2016-11-15 00:50 | NUR ---
ORAL CARE PROVIDED. TURNED TO SUPINE POSITION. WILL MONITOR.
--- NOTE | 2016-11-15 01:10 | NUR ---
INCREASED DIPRIVAN BACK TO 30MCG/KG/MIN DUE TO CONTINUOUS COUGHING NOTED.
--- NOTE | 2016-11-15 01:12 | NUR ---
MINIMAL CLEAR SECRETIONS REMOVED WHEN SUCTIONED INLINE.
--- NOTE | 2016-11-15 03:00 | NUR ---
REASSESSMENT COMPLETED. SEE ASSESSMENT. NO NEW ACUTE CHANGES NOTED. WILL MONITOR.
--- NOTE | 2016-11-15 03:30 | NUR ---
AM LABS DRAWN FROM LEFT SC CVL WITHOUT DIFFICULTY FROM BLUE PORT. 0350:PORTABLE CHEST XRAY COMPLETED AND TOLERATED WELL. HEAD MAINTAINED MIDLINE. WILL MONITOR.
[2016-11-15 03:32] LABS: BASOPHILS 0.5 % (0.0-2.0); EOSINOPHILS 11.3 % (0-7); HEMATOCRIT 29.4 % (36.0-48.0); HEMOGLOBIN 9.5 g/dL (12-16); LYMPHOCYTES 16.3 % (15-50); MCH 29.1 pg (26.0-34.0); MCHC 32.3 g/dL (31.0-37.0); MCV 89.9 fL (80.0-100.0); MONOCYTES 14.2 % (2-11); NEUTROPHILS 56.7 % (40-80); PLATELET COUNT 789 10x3/uL (130-400); RBC 3.27 10x6/uL (4.00-5.40); RDW 14.7 % (11.5-14.5); WBC 11.9 10x3/uL (4.8-10.8)
[2016-11-15 03:49] LABS: ALBUMIN 3.1 g/dL (3.4-5.0); ALKALINE PHOSPHATASE 164 U/L (46-116); ALT (SGPT) 45 U/L (10-68); BILIRUBIN - TOTAL 0.64 mg/dL (0.2-1.3); CALC OSMOLALITY 271 mosm/kg (275-300); CALCIUM 8.7 mg/dL (8.5-10.1); CARBON DIOXIDE 26.5 mmol/L (21.0-32.0); CHLORIDE - SERUM 102 mmol/L (98-107); CREATININE - SERUM 0.7 mg/dL (0.6-1.3); GLUCOSE 107 mg/dL (74-106); PHOSPHOROUS 3.5 mg/dL (2.5-4.9); POTASSIUM - SERUM 4.2 mmol/L (3.5-5.1); PROTEIN - SERUM 6.6 g/dL (6.4-8.2); SODIUM 135 mmol/L (136-145); UREA NITROGEN 17 mg/dL (7-18); eGFR NON AFRICAN AMERICAN 85 mL/min (90-120)
--- NOTE | 2016-11-15 05:15 | NUR ---
IV PROTONIX GTT WITH 8ML LEFT TBA. TURNED AND REPOSITIONED AND CHECKED PERINEAL AREA. CLEANSED PERINEAL AREA FROM SMALL AMOUNT OF LIQUID, DARK BROWN STOOL.
--- NOTE | 2016-11-15 07:10 | NUR ---
ASSESSMENT COMPLETED. PATIENT RESTING COMFORTABLY WITH NO VISUAL CUES OF DISTRESS NOTED. CISNEROS CARE AND ORAL CARE COMPLETED. SEDATION DECREASED TO 20 MCG/KG/MIN. IF TOLERATES, WILL DECREASE AGAIN AND MONITOR.
--- NOTE | 2016-11-15 09:54 | NUR ---
NO VISITORS DURING VISITING HOURS.
--- NOTE | 2016-11-15 09:59 | NUR ---
PATIENT CHANGED TO SIMV, RATE 10
--- NOTE | 2016-11-15 10:16 | NUR ---
PATIENTS RR IN 40'S, SBP 189, HEART RATE 120'S. PATIENT NOT TOLERATING SIMV AT THIS TIME. SPOKE WITH NELSY IN RESPIRATORY, WILL PUT BACK IN A/C
--- NOTE | 2016-11-15 10:34 | NUR ---
HAVE DISCUSSED PATIENTS FAILED SIMV TRIALS WITH DR LAUREANO, EXPLAINED THAT WE PLACED HER BACK ON A/C. WILL CONTINUE TO MONITOR.
--- NOTE | 2016-11-15 11:47 | NUR ---
DR MARTI(ON FOR [facility] [place]) PAGED IN REGARDS TO SBP HANGING IN 170'S DBP IN 90'S
--- NOTE | 2016-11-15 12:01 | NUR ---
SPOKE WITH DR MARTI WHO REQUESTED I SPEAK WITH DR LAUREANO ABOUT B/P. SPOKE WITH DR LAUREANO, NEW ORDERS RECEIVED.
--- NOTE | 2016-11-15 12:23 | NUR ---
PATIENTS DAUGHTER JOHN HERE. SHE HAS ALOT OF PIECES OF PAPER WITH PARTIAL INFORMATION WROTE ON IT, AND SHE DOES NOT UNDERSTAND WHAT SHE HAS WROTE DOWN SO THE CONVERSATIONS IS TALKING IN CIRCLES. TRIED THE BEST I COULD TO GET HER TO UNDERSTAND, BUT DO NOT BELIEVE THAT SHE TRUELY DOES.
--- NOTE | 2016-11-15 13:06 | NUR ---
DR LAUREANO PLACED PATIENT BACK IN SIMV MODE. WILL MONITOR.
--- NOTE | 2016-11-15 13:49 | PRO ---
PATIENT:RYLIE ZEPEDA MEDICAL RECORD: [id number] : 39 LOCATION:[facility] D.2311 ADMISSION DATE: 10/30/16 PROCEDURE PERFORMED BY: FAUSTINO LAUREANO MD DATE OF PROCEDURE: 11/01/2016 PROCEDURE: Fiberoptic bronchoscopy. Ms. Zepeda is a 81-year-old female. Recently, she has esophageal surgery. The patient was extubated yesterday, but earlier this evening, the patient had developed severe stridor and shortness of breath. The patient was electively intubated. The fiberoptic bronchoscope was passed through the ET tube. There was a huge blood clot and with a mucus plaque almost occluding the right main bronchus and it was also saddling toward the left side as well. There was also fresh blood clot in the right lower lobe. The clot and the mucus plaque was cleaned and washed. There was no fistula was seen such as the patient was intubated. Overall, the patient tolerated the procedure very well. Specimen washing was obtained and sent for routine culture and sensitivity, AFB and fungus and cytology. TRANSINT:[id number] Voice Confirmation ID: [id number] DOCUMENT ID: [id number] FAUSTINO LAUREANO MD at 1349 CC: FAUSTINO LAUREANO MD and ABEL MCKEON MD [id number] DICTATION DATE: 11/01/16 1859 RN PARALEGAL: 11/01/16 2311 ADM IN [id number] [place] [address]
--- NOTE | 2016-11-15 13:49 | CN ---
PATIENT NAME:RYLIE LUJAN MEDICAL RECORD: [id number] : 39 LOCATION:[facility]2311 ADMIT DATE: 10/30/16 ACCOUNT: [id number] CONSULTING PHYSICIAN: FAUSTINO LAUREANO MD REFERRING PHYSICIAN: ABEL MCKEON MD DATE OF CONSULTATION: 10/31/2016 CONSULT REQUESTING PHYSICIAN: Abel Mckeon MD (JJ). REASON FOR CONSULTATION: Vent management. HISTORY OF PRESENT ILLNESS: Ms. Lujan is a 81-year-old female who has a history of dysphagia, esophageal dilatation and achalasia. She underwent Heller myotomy last night. The patient was kept on the vent. I was asked to vent management and wean the patient. The history was mainly taken by talking to Dr. Mckeon as well as reviewing the patient's note. REVIEW OF SYSTEMS: Details not obtainable. PAST MEDICAL HISTORY: 1. Dysphagia. 2. Achalasia. 3. Esophageal dilatation. 4. Allergic rhinitis. PAST SURGICAL HISTORY: 1. She is now status post Heller myotomy. 2. Left thoracotomy, chest tube placement. ALLERGIES: There are no known drug allergies. PRESENT MEDICATIONS: On Prim Laundry was reviewed. PERSONAL AND SOCIAL HISTORY: The patient never smoked. She is a nondrinker. FAMILY HISTORY: Noncontributory. PHYSICAL EXAMINATION: GENERAL: Now, the patient is orally intubated and sedated. VITAL SIGNS: The blood pressure is 86 to 103/59, pulse is 48, respiration is 16, temperature is 97.8, SpO2 of 99% on SIMV mechanical ventilation. HEENT: Conjunctiva is pale. Sclerae nonicteric. NECK: Supple. No JVD. CHEST: Excursion is minimal on both sides. There is no wheeze, no rales. HEART: Rhythm regular, normal sound, no murmur. ABDOMEN: Soft. Bowel sounds present. No hepatosplenomegaly. RECTAL: Deferred. EXTREMITIES: No cyanosis, no clubbing. There is no pedal edema. SKIN: Warm, normal turgor. CENTRAL NERVOUS SYSTEM: The patient is orally intubated and sedated. CHEST RADIOGRAPH: The ET tube and the central line in good position. There is resolving subcutaneous emphysema overlying the chest. There is hyperinflation without any infiltrate. CONSULT REPORT [id number] RYLIE LUJAN OTHER LABORATORY DATA: CBC: WBC 14.9, hemoglobin 8.4, hematocrit 25.9 and the platelet count 289. Chemistry: Sodium 138, potassium 3.4, BUN is 17, creatinine 1.1. IMPRESSION: 1. Acute respiratory failure post-procedure. 2. Status post Heller myotomy. 3. Achalasia. 4. Esophageal dysmotility. 5. Anemia, most likely secondary to blood loss. 6. Dysphagia. 7. Status post left chest thoracotomy. 8. Leukocytosis post-procedure. RECOMMENDATION: 1. We will try to wean the patient. 2. Gastrointestinal stress ulcer prevention. 3. DVT prophylaxis. 4. Agree with the blood transfusion. 5. Follow up labs and chest radiograph. Dr. Mckeon, once again thank you for involving me in the care of Ms. Lujan. TRANSINT:[id number] Voice Confirmation ID: [id number] DOCUMENT ID: [id number] FAUSTINO LAUREANO MD at 1349 CC: ABEL MCKEON MD [id number] DICTATION DATE: 10/31/16 1042 COMPUTER GRAPHIC DESIGNER: 10/31/16 1239 ADM IN [facility] [address] [place] [address]
--- NOTE | 2016-11-15 19:30 | NUR ---
RECEIVED CARE OF PT, ASSESSMENT PER FLOWSHEET. PT SEDATED AND VENTILATED VIA 8.0 TRACH, 40 % FIO2 PER VENT, BREATH SOUNDS DIMINISHED IN BASES, RESPONDS TO PAINFUL STIMULI, PPP, HR ST AT A RATE OF 110 ON MONITOR, LT TRIPLE LUMEN SC CVL PATENT, DRESSING CDI, DRIPS INFUSING PER FLOWSHEET. BS HYPOACTIVE X 4, LAP INCISIONS X 5 TO ABDOMEN CDI, CISNEROS CATH PATENT WITH KINDRA URINE IN TUBING. ORAL CARE PROVIDED, PT POSITIONED FOR COMFORT, BED LOW. VSS
--- NOTE | 2016-11-15 21:00 | NUR ---
NO VISITORS PRESENT AT THIS TIME, PT REPOSITIONED FOR COMFORT, ORAL CARE AND SUCTIONING DONE, CONT POC.
--- NOTE | 2016-11-15 23:30 | NUR ---
REASSESSMENT PER FLOWSHEET, NO ACUTE CHANGES NOTED AT THIS TIME. PT REPOSITIONED FOR COMFORT SUPPORTED WITH PILLOWS, ORAL CARE PROVIDED, CONT POC.
[2016-11-16] VITALS (24 sets, daily range): BP systolic 124–159; BP diastolic 59–93
--- NOTE | 2016-11-16 02:41 | NUR ---
PT INCONTINENT OF SMALL LIQUID BROWN BM, COMPLETE BATH AND LINEN CHANGE DONE, ORAL CARE PROVIDED.
--- NOTE | 2016-11-16 03:30 | NUR ---
REASSESSMENT PER FLOWSHEET, NO ACUTE CHANGES NOTED AT THIS TIME, ORAL CARE AND SUCTIONING PROVIDED, REPOSITIONED FOR COMFORT, VSS
[2016-11-16 05:22] LABS: BASOPHILS 0.6 % (0.0-2.0); EOSINOPHILS 9.6 % (0-7); HEMATOCRIT 29.1 % (36.0-48.0); HEMOGLOBIN 9.5 g/dL (12-16); IMMATURE GRANULOCYTES 0.8 % (0-5); MCH 28.9 pg (26.0-34.0); MCHC 32.6 g/dL (31.0-37.0); MCV 88.4 fL (80.0-100.0); MEAN PLATELET VOLUME 10.3 fL (7.4-10.4); MONOCYTES 14.8 % (2-11); NEUTROPHILS 59.2 % (40-80); PLATELET COUNT 803 10x3/uL (130-400); RBC 3.29 10x6/uL (4.00-5.40); RDW 14.7 % (11.5-14.5); WBC 12.7 10x3/uL (4.8-10.8)
--- NOTE | 2016-11-16 05:42 | NUR ---
PT REPOSITIONED FOR COMFORT, ORAL CARE AND SUCTIONING PROVIDED, MINIMAL SECRETIONS NOTED, VSS, CONT TO MONITOR.
[2016-11-16 05:50] LABS: ALBUMIN 3.7 g/dL (3.4-5.0); BILIRUBIN - TOTAL 0.78 mg/dL (0.2-1.3); CALCIUM 8.7 mg/dL (8.5-10.1); CARBON DIOXIDE 25.6 mmol/L (21.0-32.0); CREATININE - SERUM 0.8 mg/dL (0.6-1.3); MAGNESIUM - SERUM 1.8 mg/dL (1.8-2.4); PHOSPHOROUS 3.4 mg/dL (2.5-4.9); POTASSIUM - SERUM 3.6 mmol/L (3.5-5.1); PROTEIN - SERUM 7.4 g/dL (6.4-8.2)
--- NOTE | 2016-11-16 08:54 | NUR ---
NUTRITION MONITORING & EVAL CHART REVIEWED. ADDED BMP TO AM LABS. WILL CONTINUE TPN AT CURRENT RATE. CONSIDER INCREASE TPN RATE IF PT DOES NOT TRANSITION TO TUBE FEEDS. RD FOLLOWING
--- NOTE | 2016-11-16 09:00 | NUR ---
MEDICATIONS GIVEN - CPOC
--- NOTE | 2016-11-16 14:27 | NUR ---
1400 TRANSFERRED PT WITH ALL BELONGINGS TO ROOM 2130 - DOT RN AT BEDSIDE - UPDATED ON MAR CHANGES FROM PREVOIOUS HAND OFF
--- NOTE | 2016-11-16 19:35 | NUR ---
RESUMED CARE OF PT, ASSESSMENT PER FLOWSHEET. PT INTUBATED AND SEDATED ON VENT VIA TRACH, RESPONDS TO PAINFUL STIMULI, DOES NOT FOLLOW COMMANDS, HR 91 AND SR ON CM, BREATH SOUNDS DIMINISHED IN BILATERAL BASES, PPP, SKIN ASSESSMENT PER FLOWSHEET, LT SC CVL PATENT, DRESSING CDI, DRIPS INFUSING PER FLOWSHEET, CISNEROS CATH PATENT WITH KINDRA COLORED URINE IN TUBING. PT POSITIONED FOR COMFORT, ORAL CARE AND SUCTIONING PROVIDED, VSS, WILL MONITOR.
--- NOTE | 2016-11-16 21:20 | NUR ---
NO VISITORS PRESENT AT THIS TIME, PT POSITIONED FOR COMFORT, ORAL CARE AND SUCTIONING PROVIDED, VSS.
--- NOTE | 2016-11-16 23:15 | NUR ---
REASSESSMENT PER FLOWSHEET, NO ACUTE CHANGES NOTED AT THIS TIME, VSS, CONT POC.
[2016-11-17] VITALS (24 sets, daily range): BP systolic 117–141; BP diastolic 58–76
--- NOTE | 2016-11-17 01:10 | NUR ---
PT REPOSITIONED FOR COMFORT SUPPORTED WITH PILLOWS, VSS, CONT POC.
--- NOTE | 2016-11-17 03:45 | NUR ---
REASSESSMENT PER FLOWSHEET, NO ACUTE CHANGES NOTED. ORAL CARE AND SUCTIONING PROVIDED, PT POSITIONED FOR COMFORT, VSS, CONT POC.
--- NOTE | 2016-11-17 05:11 | NUR ---
ORAL CARE AND SUCTIONING COMPLETED, PT REPOSITIONED SUPPORTED WITH PILLOWS, VSS.
[2016-11-17 05:51] LABS: CALC OSMOLALITY 270 mosm/kg (275-300); CALCIUM 8.9 mg/dL (8.5-10.1); CARBON DIOXIDE 24.8 mmol/L (21.0-32.0); CHLORIDE - SERUM 99 mmol/L (98-107); CREATININE - SERUM 0.7 mg/dL (0.6-1.3); GLUCOSE 104 mg/dL (74-106); MAGNESIUM - SERUM 1.9 mg/dL (1.8-2.4); PHOSPHOROUS 3.6 mg/dL (2.5-4.9); SODIUM 134 mmol/L (136-145); UREA NITROGEN 21 mg/dL (7-18); eGFR NON AFRICAN AMERICAN 85 mL/min (90-120)
[2016-11-17 05:52] LABS: POTASSIUM - SERUM 4.4 mmol/L (3.5-5.1)
[2016-11-17 06:44] LABS: BASOPHILS 0.5 % (0.0-2.0); EOSINOPHILS 9.5 % (0-7); HEMATOCRIT 29.9 % (36.0-48.0); HEMOGLOBIN 9.5 g/dL (12-16); IMMATURE GRANULOCYTES 1.1 % (0-5); LYMPHOCYTES 18.2 % (15-50); MCH 28.2 pg (26.0-34.0); MCHC 31.8 g/dL (31.0-37.0); MCV 88.7 fL (80.0-100.0); MEAN PLATELET VOLUME 10.7 fL (7.4-10.4); MONOCYTES 16.9 % (2-11); NEUTROPHILS 53.8 % (40-80); PLATELET COUNT 707 10x3/uL (130-400); RBC 3.37 10x6/uL (4.00-5.40); RDW 14.7 % (11.5-14.5)
--- NOTE | 2016-11-17 07:00 | NUR ---
REC'D CARE OF PT. OPENS EYES TO VOICE BUT DOESNT FOLLOW COMMANDS.
--- NOTE | 2016-11-17 10:43 | NUR ---
REASSESSMENT COMPLETED PER FLOW SHEET. NO ACUTES CHANGES.
--- NOTE | 2016-11-17 14:29 | NUR ---
REASSESSMENT COMPLETED PER FLOW SHEET. NO ACUTE CHANGES.
--- NOTE | 2016-11-17 14:57 | NUR ---
CONTINUES SEDATED ON VENT. ALERT BUT WILL NOT FOLLOW COMMANDS. TRACH PROPERLY SECURED. LEFT SCTL. SWAB CAPS ARE IN PLACE. BIO PATCH AT ENTRY SITE OF CVL. DRSG CD&I.SEE IV FLOW SHEET FOR INFUSIONS. ORAL CARE BEING DONE PER Q2H. TURINING PT. Q2H TO PROMOTE SKIN INTEGRITY. HEELS ARE BRIDGED. FOOT DROP SUPPORT ARE ON BILATERALLLY. CISNEROS PATENT TO GRAVITY. SOFT WRIST RESTRAINTS BILATERALLY TO PROTECT AIRWAY. CPOC.
--- NOTE | 2016-11-17 16:00 | NUR ---
RESTING WITH EYES CLOSED. VSS. SEDATED ON VENT. LEFT SCTL. DRSG CD&I. SWAB CAPS ON. BIOPATCH IS IN PLACE. SOFT WRIST RESTRAINTS BILATERAL TO PROTECT AIRWAY. DROP FOOT PREVENTER BOOTS ARE ON. SCD'S. CPOC.
--- NOTE | 2016-11-17 19:10 | NUR ---
ASSESSMENT COMPLETED. SEE FLOW SHEET. TRACH SECURED TO NECK, VENT SETTINGS PER FLOW SHEET. LT TLSC, DRSG C-D-I, IVF PER FLOW SHEET. CISNEROS CATH INTACT. ANGEL SCD AND FOOT DROP BOOTS. SR ON THE MONITOR.
--- NOTE | 2016-11-17 21:00 | NUR ---
NO VISITOR'S AT THIS TIME.
--- NOTE | 2016-11-17 23:00 | NUR ---
REASSESSMENT COMPLETED. SR ON THE MONITOR.
[2016-11-18] VITALS (24 sets, daily range): BP systolic 111–148; BP diastolic 50–77
--- NOTE | 2016-11-18 01:00 | NUR ---
REPOSITIONED. TOLLERATED WELL. WILL CONT TO MONITOR.
--- NOTE | 2016-11-18 03:00 | NUR ---
RADIOLOGY HERE FOR CXR. REASSESSMENT COMPLETED.
[2016-11-18 04:57] LABS: BASOPHILS 0.5 % (0.0-2.0); EOSINOPHILS 11.3 % (0-7); HEMATOCRIT 29.2 % (36.0-48.0); HEMOGLOBIN 9.1 g/dL (12-16); IMMATURE GRANULOCYTES 0.9 % (0-5); LYMPHOCYTES 12.5 % (15-50); MCH 28.2 pg (26.0-34.0); MCHC 31.2 g/dL (31.0-37.0); MCV 90.4 fL (80.0-100.0); MEAN PLATELET VOLUME 10.1 fL (7.4-10.4); MONOCYTES 15.6 % (2-11); NEUTROPHILS 59.2 % (40-80); PLATELET COUNT 796 10x3/uL (130-400); RBC 3.23 10x6/uL (4.00-5.40); RDW 14.9 % (11.5-14.5); WBC 11.9 10x3/uL (4.8-10.8)
[2016-11-18 05:11] LABS: CALC OSMOLALITY 273 mosm/kg (275-300); CALCIUM 9.3 mg/dL (8.5-10.1); CARBON DIOXIDE 24.4 mmol/L (21.0-32.0); CHLORIDE - SERUM 101 mmol/L (98-107); CREATININE - SERUM 0.7 mg/dL (0.6-1.3); GLUCOSE 114 mg/dL (74-106); MAGNESIUM - SERUM 2.1 mg/dL (1.8-2.4); PHOSPHOROUS 3.9 mg/dL (2.5-4.9); POTASSIUM - SERUM 4.2 mmol/L (3.5-5.1); SODIUM 135 mmol/L (136-145); UREA NITROGEN 21 mg/dL (7-18); eGFR NON AFRICAN AMERICAN 85 mL/min (90-120)
--- NOTE | 2016-11-18 09:42 | NUR ---
NUTRITION MONITORING & EVAL CHART REVIEWED, SPOKE WITH MD. PT FOR PEG PLACEMENT. WILL TRANSISTION TPN TO TUBE FEEDS /WHEN APPROPRIATE. ORDERED AM LABS X [address] FOLLOWING
--- NOTE | 2016-11-18 10:14 | NUR ---
0700 PT SEDATED ON VENT. VENT SETTINGS REMAIN UNCHANGED. NORMAL SINUS ON MONITOR, S1S2 NOTED. FINE CRACKLES NOTED IN UPPER LOBES BILAT AND RT MIDDLE LOBE, DIMINISHED IN LOWER LOBES. SCDS ON LOWER EXTREMITIES BILAT. LEFT CVL NOTED, PATENT DRY AND IN TACT. VITAL SIGNS STABLE. WILL CONTINUE TO MONITOR
--- NOTE | 2016-11-18 10:17 | NUR ---
0900 PT REPOSITIONED FOR COMFORT. DR MCKEON PUT IN ORDERS FOR PEG TUBE. WILL OBTAIN CONSENT. DAUGHTERS (BOTH POA) WILL DISCUSS DECISION.
--- NOTE | 2016-11-18 15:27 | NUR ---
1100 CALLED DAUGHTERS TO DISCUSS CONSENT FOR PEG TUBE. EXPLAINED THAT THEY HAVE TO BE IN AGREEMENT FOR PROCEDURE BECAUSE THEY HOLD JOINT POA.
--- NOTE | 2016-11-18 15:32 | NUR ---
1300 PT REPOSITIONED IN BED. ORAL CARE PERFORMED. VITAL SIGNS STABLE.
--- NOTE | 2016-11-18 15:33 | NUR ---
1500 CONSENT SIGNED OVER PHONE BY BOTH DAUGHTERS AND WITNESSED. DR MCKEON PLACED PEG TUBE IN LEFT UPPER QUADRANT. NO SIGNIFICANT BLEEDING NOTED. WILL ATTEMPT TO WEAN OFF OF SEDATION PER ORDER. PEG TUBE OKAY TO USE FOR MEDS TODAY AND TUBE FEEDINGS TOMORROW PER DR MCKEON. VITAL SIGNS STABLE.
--- NOTE | 2016-11-18 17:12 | NUR ---
1700 PT STABLE AT THIS TIME. NO CHANGES FROM PREVIOUS STATUS. CONTINUING TO DECREASE SEDATION PER VERBAL ORDER FROM DR MCKEON TOLERATED. VITAL SIGNS STABLE
--- NOTE | 2016-11-18 19:10 | NUR ---
ASSESSMENT COMPLETD. SEE FLOW SHEET. SEDATED ON VENT. SR ON THE MONITOR.
--- NOTE | 2016-11-18 21:00 | NUR ---
NO VISITOR'S AT THIS TIME. SR ON THE MONITOR.
--- NOTE | 2016-11-18 23:00 | NUR ---
NO CHANGES AT THIS TIME. OPENS EYES TO VERBAL STIMULI. WILL CONT TO MONITOR.
[2016-11-19] VITALS (24 sets, daily range): BP systolic 129–176; BP diastolic 66–91
--- NOTE | 2016-11-19 01:00 | NUR ---
REPOSITIONED. WILL CONT TO MONITOR.
--- NOTE | 2016-11-19 03:00 | NUR ---
RADIOLOGY HERE FOR CXR. TOLLERATED WELL.
[2016-11-19 04:48] LABS: BASOPHILS 0.6 % (0.0-2.0); EOSINOPHILS 9.3 % (0-7); HEMATOCRIT 29.6 % (36.0-48.0); HEMOGLOBIN 9.4 g/dL (12-16); LYMPHOCYTES 18.4 % (15-50); MCH 28.5 pg (26.0-34.0); MCHC 31.8 g/dL (31.0-37.0); MCV 89.7 fL (80.0-100.0); MEAN PLATELET VOLUME 10.5 fL (7.4-10.4); MONOCYTES 13.8 % (2-11); NEUTROPHILS 56.9 % (40-80); PLATELET COUNT 817 10x3/uL (130-400); RDW 14.8 % (11.5-14.5); WBC 12.4 10x3/uL (4.8-10.8)
[2016-11-19 04:56] LABS: ANION GAP 13.2 mmol/L (8-16); CREATININE - SERUM 0.8 mg/dL (0.6-1.3); MAGNESIUM - SERUM 2.1 mg/dL (1.8-2.4); PHOSPHOROUS 4.2 mg/dL (2.5-4.9); POTASSIUM - SERUM 4.2 mmol/L (3.5-5.1)
--- NOTE | 2016-11-19 05:00 | NUR ---
NO CHANGES AT THIS TIME. SR ON THE MONITOR.
--- NOTE | 2016-11-19 07:00 | NUR ---
ASSESSMENT PER FLOWSHEET. VOICES NO CO AT TIME. SR UP X 2.
--- NOTE | 2016-11-19 08:06 | OP ---
PATIENT NAME: RYLIE LUJAN MEDICAL RECORD: [id number] :37 LOCATION:[facility] D.2311 ADMISSION DATE:10/30/16 SURGEON: ABEL MCKEON MD DATE OF OPERATION: 11/18/2016 SURGEON: Abel Mckeon MD. PREOPERATIVE DIAGNOSES: 1. Vent-dependent respiratory failure. 2. History of achalasia. PROCEDURES PERFORMED: Esophagogastroduodenoscopy with percutaneous endoscopic gastrostomy tube placement. ANESTHESIA: Total intravenous anesthesia. COMPLICATIONS: None. SPECIMENS: None. ESTIMATED BLOOD LOSS: Minimal. OPERATIVE COURSE: After consent was obtained, the patient was sedated in her ICU bed. A total intravenous anesthesia was given. A Hurricaine Elcho was administered. A bite block was placed. A timeout was taken to confirm the correct patient and procedure. The scope was advanced to the oropharynx. It was passed posterior to the epiglottis, advanced in the esophagus under direct endoscopic vision. The area of previous repair was seen. There was no evidence of opening or breakdown. There is no evidence of leak. The area appeared to be very well healed at the distal portion of the esophagus. The scope was advanced past that to the GE junction. The stomach was insufflated. Once the stomach was insufflated, the light was transilluminating the left lower quadrant. The site was marked. It was prepped and draped in typical sterile fashion. Local anesthetic was injected. Stab incision was made with an 11-blade scalpel and under direct endoscopic vision, the needle was passed through the abdominal wall and into the lumen of the stomach under direct endoscopic vision. The wire was placed through the Angiocatheter sheaths. The snare grasper was used to grab the wire. Once this was complete, the wire and the scope were removed. The G-tube was attached to the wire and using the standard pull technique, the gastrostomy tube was advanced to the oropharynx and delivered to the anterior abdominal wall. It was secured to the anterior abdominal wall at 3.5 cm. The scope was reinserted. Again, the cuff of the G-tube was firmly against the stomach. The previous Heller myotomy was again copiously inspected. It was copiously irrigated. There was no evidence of leak. There area appeared very well healed. At this time, the stomach was desufflated. The scope was withdrawn. The patient tolerated the procedure well. At the end of procedure, all needle and instrument counts were correct. No complications occurred. TRANSINT:[id number] Voice Confirmation ID: [id number] DOCUMENT ID: [id number] OPERATIVE REPORT [id number] RYLIE LUJAN,ABEL Dotson MD at 0806 CC: [id number] DICTATION DATE: 11/18/16 1509 CLINICAL STAFF RN: 11/18/16 2255 [place] [address]
--- NOTE | 2016-11-19 09:48 | NUR ---
NUTRITION MONITORING & EVAL SPOKE WITH NURSING. TPN DC'D, DIPRIVAN OFF. PULMOCARE STARTED AT 20 CC/HR. GOAL RATE 45 CC/HR, 50 CC H2O FLUSH Q 4 HOURS WILL PROVIDE 1620 KCAL, 68 GM PROTEIN, 1150 CC H2O PER DAY. NS @ 30 CC/HR PROVIDING ADDITIONAL 720 CC FLUID PER DAY. WILL REQUIRE INCREASED H2O FLUSH IF IV FLUIDS DC'D. RD FOLLOWING
--- NOTE | 2016-11-19 14:24 | NUR ---
REPORT GIVEN TO TWIN CARTER RN.
--- NOTE | 2016-11-19 14:37 | EC ---
PATIENT:RYLIE LUJAN DATE OF SERVICE: 10/30/16 SEX: F MEDICAL RECORD: [id number] DATE OF : 37 LOCATION:[facility] AGE OF PATIENT: 81 ADMISSION DATE: 10/30/16 REFERRING PHYSICIAN: INTERPRETING PHYSICIAN: GRETA SIDHU MD ECHOCARDIOGRAM REPORT ECHO CHARGES 5 ECHO LIMITED CLINICAL DIAGNOSIS: EDEMA REASSESS EF AND RVSP PATIENT ON VENT ECHOCARDIOGRAPHIC MEASUREMENTS (adult normal given) AC root (d.<3.7cm) 3.3 LV Septum d (<1.2 cm> 1.5 Valve Excursion 2.0 LV Septum (systole) 1.9 Left Atria (s.<4.0cm> 3.3 LVPW d(<1.2cm) 1.3 RV (d.<2.3cm) 4.1 LVPW (sytole) 1.7 LV diastole(<5.6CM) 4.2 MV E-F(>70mm/sec) LV systole 2.4 LVOT Diameter 1.6 MV exc.(>10mm) 1.5 Est.ejection fraction (50-75%) Pericardial Effusion N DOPPLER: LVIT A 70.0 E 85.0 LA RVSP 25 LVOT 92 AOP1/2T Asc. Ao 120 RVOT 90 RA PA 124 AV Gradient Peak 5.74 AV Mean 2.60 AV Area 1.7 MV Gradient Peak 3.88 MV Mean 1.80 MV Area COMMENTS: Central Office Mechanic: Min [facility] Sales Consultant:2 Dr. Maria TAPE# PACS DATE OF SERVICE: 11/11/2016 Limited echocardiogram for ejection fraction FINDINGS: Left ventricle chamber size is within normal limits. Left ventricular systolic function is normal. Overall ejection fraction estimated at 60% to 65%. TRANSINT:[id number] Voice Confirmation ID: [id number] DOCUMENT ID: [id number] ECHOCARDIOGRAM REPORT [id number] LUJAN,RYLIE Tatianna GRETA SIDHU MD at 1437 CC: [id number] DICTATION DATE: 11/11/16 1202 WELDER SETTER RESISTANCE MACHINE: 11/11/16 1412 [place] [address]
[2016-11-20] VITALS (24 sets, daily range): BP systolic 128–176; BP diastolic 62–118
[2016-11-20 05:03] LABS: BASOPHILS 0.6 % (0.0-2.0); EOSINOPHILS 9.1 % (0-7); HEMATOCRIT 29.6 % (36.0-48.0); HEMOGLOBIN 9.3 g/dL (12-16); IMMATURE GRANULOCYTES 1.1 % (0-5); MCH 28.1 pg (26.0-34.0); MCHC 31.4 g/dL (31.0-37.0); MCV 89.4 fL (80.0-100.0); MEAN PLATELET VOLUME 10.5 fL (7.4-10.4); MONOCYTES 13.9 % (2-11); NEUTROPHILS 54.3 % (40-80); PLATELET COUNT 800 10x3/uL (130-400); RBC 3.31 10x6/uL (4.00-5.40); RDW 14.8 % (11.5-14.5); WBC 14.3 10x3/uL (4.8-10.8)
[2016-11-20 05:10] LABS: ANION GAP 19.8 mmol/L (8-16); CALCIUM 9.2 mg/dL (8.5-10.1); CARBON DIOXIDE 24.6 mmol/L (21.0-32.0); CREATININE - SERUM 0.9 mg/dL (0.6-1.3); MAGNESIUM - SERUM 2.3 mg/dL (1.8-2.4); PHOSPHOROUS 3.9 mg/dL (2.5-4.9); POTASSIUM - SERUM 4.4 mmol/L (3.5-5.1)
--- NOTE | 2016-11-20 06:48 | NUR ---
BED BATH AND LINEN CHANGE COMPLETED. TOLLERATED WELL. LARGE LIQUID BM
--- NOTE | 2016-11-20 07:00 | NUR ---
REPORT RECEIVED. ASSESSMENT COMPLETED. PATIENT IN SEMI FOWLERS POSITION WITH EYES CLOSED. OPENES EYES WHEN SPOKEN TOO. REMAINS WITH TRACH ON THE VENT. NO VISUAL CUES OF DISTRESS NOTED.
--- NOTE | 2016-11-20 09:30 | NUR ---
NO VISITORS NOTED AT THIS TIME.
--- NOTE | 2016-11-20 10:12 | NUR ---
NUTRITION MONITORING & EVAL TRACH AND PEG. PULMOCARE TUBE FEEDS CURRENTLY OFF FOR CT SCAN. WILL PROVIDE PULMOCARE WHEN TUBE FEEDS RESUME. RD FOLLOWING
--- NOTE | 2016-11-20 12:10 | NUR ---
PATIENT WENT TO AND CAME BACK FROM CT WITHOUT PROBLEMS.
--- NOTE | 2016-11-20 12:20 | NUR ---
PATIENTS SISTER AND DAUGHTER JOHN HERE. UPDATE GIVEN AND QUESTIONS ANSWERED.
--- NOTE | 2016-11-20 14:38 | NUR ---
COMPLETE BED BATH GIVEN SECONDARY TO LARGE LOOSE BOWEL MOVEMENT FROM MID BACK TO KNEES. BUTT PASTE APPLIED, PATIENT REPOSITINED FOR COMFORT. ORAL CARE PERFORMED AND PATIENT SUCTIONED. B/P, HEART RATE, AND RESP. REMAIN ELEVATED ( THEY ALWAYS DO AFTER MOVEMENT). WILL MONITOR.
--- NOTE | 2016-11-20 16:40 | NUR ---
PATIENTS DAUGHTER SAVITA CALLED. UPDATE WAS GIVEN, QUESTIONS ANSWERED.
--- NOTE | 2016-11-20 19:30 | NUR ---
REPORT RECEIVED ANC CARE ASSUMED. SHIFT ASSESSMENT COMPLETED. SEE FLOWSHEET. PT REMAINS SUPPORTED ON VENTILATOR VIA TRACH. ALL LINES AND IVF VERIFIED TO BE CURRENT AND ARE CORRECTLY LABELED AND DATED. PT CONTINUES TO BE MONITORED PER STANDARD ICU PROTOCOL WITH ALL ALARMS VERIFIED AND SET. PT IS ON A ROTATION BED AND IS ON AN AIR OVERLAY MATTERESS. IS TOTAL CARE FOR ALL ADLS. ARMS ARE ELEVATED ON PILLOWS AND PILLOWS ARE USED FOR SUPPORT AND TO RELIEVE PRESSURE. HEELS ARE BRIDGED. FOOT DROP PREVENTION BOOTS ARE ON BILAT.
--- NOTE | 2016-11-20 21:00 | NUR ---
NO VISITORS AT THIS TIME. PT RESTING TOLERABLY WELL. BECOMES ANXIOUS, INDICATED WITH INCREASED RESP, WITH ANY TYPE OF STIMULATION
--- NOTE | 2016-11-20 23:00 | NUR ---
SHIFT REASSESSMENT COMPLETED. SEE FLOWSHEET. RESIDUAL CHECKED AND NOTED TO BE AT 170CC. RETURNED AND TUBE FEEDING RESUMED AT 40ML PER HOUR PER PUMP AND VIA G-TUBE. FLUSH IS SET AT 50CC [id number] VIA PUMP.
--- NOTE | 2016-11-20 23:40 | NUR ---
DAUGHTER JOHN CALLED. UPDATE GIVEN. QUESTIONS ANSWERED.
[2016-11-21] VITALS (25 sets, daily range): BP systolic 124–183; BP diastolic 57–95
--- NOTE | 2016-11-21 01:00 | NUR ---
PT RESTING WELL RESP INDICATE PT IS RELAXED, BETWEEN 15-20
--- NOTE | 2016-11-21 03:00 | NUR ---
PT INCONTINENT OF LARGE BROWN LIQUID STOOL MANAV CARE DONE. BATH GIVEN ALL LINENS CHANGED.
--- NOTE | 2016-11-21 03:35 | NUR ---
RADIOLOGY AT BEDSIDE FOR AM CXR
[2016-11-21 03:56] LABS: BASOPHILS 0.5 % (0.0-2.0); HEMATOCRIT 29.7 % (36.0-48.0); HEMOGLOBIN 9.6 g/dL (12-16); IMMATURE GRANULOCYTES 1.1 % (0-5); LYMPHOCYTES 18.6 % (15-50); MCH 28.5 pg (26.0-34.0); MCHC 32.3 g/dL (31.0-37.0); MCV 88.1 fL (80.0-100.0); MEAN PLATELET VOLUME 9.8 fL (7.4-10.4); MONOCYTES 14.3 % (2-11); NEUTROPHILS 56.5 % (40-80); PLATELET COUNT 771 10x3/uL (130-400); RBC 3.37 10x6/uL (4.00-5.40); RDW 14.5 % (11.5-14.5); WBC 14.1 10x3/uL (4.8-10.8)
[2016-11-21 04:18] LABS: CALC OSMOLALITY 264 mosm/kg (275-300); CALCIUM 9.1 mg/dL (8.5-10.1); CARBON DIOXIDE 22.1 mmol/L (21.0-32.0); CHLORIDE - SERUM 96 mmol/L (98-107); CREATININE - SERUM 0.7 mg/dL (0.6-1.3); GLUCOSE 107 mg/dL (74-106); MAGNESIUM - SERUM 2.2 mg/dL (1.8-2.4); SODIUM 130 mmol/L (136-145); UREA NITROGEN 25 mg/dL (7-18); eGFR NON AFRICAN AMERICAN 85 mL/min (90-120)
[2016-11-21 04:20] LABS: PHOSPHOROUS 2.9 mg/dL (2.5-4.9)
--- NOTE | 2016-11-21 08:37 | NUR ---
0830-PT INC OF STOOL. STOOL IS VERY WATERY AND THIN. DR MCKEON HERE, REC'D ORDER FOR RECTAL TUBE. RECTAL TUBE PLACED AND BATH AND LINENS CHANGED.
--- NOTE | 2016-11-21 19:30 | NUR ---
REPORT REC'D AND CARE ASSUMED, REC'D PT ON VENT VIA TRACH, SEE FLOWSHEET FOR SETTINGS, LTLSCL DRSG CDI WITH 1/2NS @ 30CC/HR, CM-ST @ 112, TEMP 101.8, EXCESS COVERS REMOVED AND THERMOSTAT ADJUSTED, ABD DISTENDED, BS ACTIVE, PULMOCARE INFUSING @ 45CC/HR WITH 50CC Q4HR FLUSH, ABD WITH PREVIOUS LAP INCISIONS WITH STERISTRIPS CDI, CISNEROS PATENT DRAINING CLEAR YELLOW URINE, RECTAL TUBE IN PLACE BROWN LOOSE STOOL NOTED, GENERALIZED EDEMA, AIR OVERLAY MATTRESS IN USE, PT WILL OPEN EYES AND LOOK AT NURSE WHEN CALLED BY NAME BUT DOES NOT FOLLOW ANY OTHER COMMANDS, BILATERAL SCD'S INTACT, SPENCO BOOTS IN PLACE, BILATERAL SOFT WRIST RESTRAINTS INTACT.
--- NOTE | 2016-11-21 20:30 | NUR ---
EVENING MEDS GIVEN, PT CONTINUES TO NOT FOLLOW COMMANDS, BP ELEVATED, TEMP 101.6, ORDER PLACED FOR BC TO BE DRAWN.
--- NOTE | 2016-11-21 21:00 | NUR ---
PT REPOSITIONED UP IN BED, ORAL CARE DONE, NO VISITORS IN AT THIS TIME.
--- NOTE | 2016-11-21 22:30 | NUR ---
RESP RATE 45-55, RT AT BS, PT PLACED ON A/C RATE OF 12, WILL MONITOR FOR CHANGES.
--- NOTE | 2016-11-21 22:30 | NUR ---
SPOKE WITH PT'S DAUGHTER JOHN BY PHONE PASSWORD VERIFIED AND UPDATE PROVIDED.
--- NOTE | 2016-11-21 23:20 | NUR ---
LAB AT BS, REASSESSMENT COMPLETED, PT DOES NOT FOLLOW COMMANDS AT TIMES RESP RATE 35-40, OCCASIONALLY WILL SLOW RESPS ON REQUEST, BP REMAINS ELEVATED WILL MONITOR CLOSELY FOR CHANGES.
[2016-11-22] VITALS (24 sets, daily range): BP systolic 106–169; BP diastolic 50–95
--- NOTE | 2016-11-22 00:15 | NUR ---
PT REPOSITIONED UP AND ONTO LEFT SIDE SUPPORTED WITH PILLOWS, BUTTOCKS RED, SMALL AMOUNT OF STOOL HAD LEAKED AROUND RECTAL TUBE, BUTTOCKS CLEANED AND ARMANDO'S BUTT PASTE APPLIED, VSS, BP IMPROVED, SR UP X 2, VISIBLE TO NURSES STATION.
--- NOTE | 2016-11-22 02:00 | NUR ---
NO CHANGES IN STATUS AT THIS TIME
--- NOTE | 2016-11-22 03:30 | NUR ---
RADIOLOGY @ BS FOR AM CXR
--- NOTE | 2016-11-22 03:50 | NUR ---
URINE COLLECTED FOR URINALYSIS AND SENT TO LAB
--- NOTE | 2016-11-22 04:00 | NUR ---
COMPLETE BATH AND LINEN CHANGE PROVIDED, ORAL CARE PROVIDED AND HAIR BRUSHED, NEW BP CUFF APPLIED, LOTION APPLIED TO EXT'S, PT TOLERATED WELL.
--- NOTE | 2016-11-22 05:00 | NUR ---
PT REPOSITIONED UP IN BED AND ONTO RIGHT SIDE SUPPORTED WITH PILLOW, ARMS ELEVATED, SPENCO BOOTS AND SCDS REAPPLIED, SR UP X 2, VISIBLE TO NURSES DESK.
[2016-11-22 05:01] LABS: BASOPHILS 0.6 % (0.0-2.0); EOSINOPHILS 5.6 % (0-7); HEMATOCRIT 28.4 % (36.0-48.0); HEMOGLOBIN 9.1 g/dL (12-16); IMMATURE GRANULOCYTES 0.9 % (0-5); LYMPHOCYTES 14.7 % (15-50); MCH 28.3 pg (26.0-34.0); MCV 88.5 fL (80.0-100.0); MEAN PLATELET VOLUME 10.3 fL (7.4-10.4); MONOCYTES 19.4 % (2-11); NEUTROPHILS 58.8 % (40-80); PLATELET COUNT 800 10x3/uL (130-400); RBC 3.21 10x6/uL (4.00-5.40); RDW 14.4 % (11.5-14.5); WBC 11.4 10x3/uL (4.8-10.8)
[2016-11-22 05:10] LABS: ALBUMIN 3.5 g/dL (3.4-5.0); ANION GAP 13.4 mmol/L (8-16); BILIRUBIN - TOTAL 0.6 mg/dL (0.2-1.3); CALCIUM 8.9 mg/dL (8.5-10.1); CARBON DIOXIDE 23.5 mmol/L (21.0-32.0); CREATININE - SERUM 0.8 mg/dL (0.6-1.3); MAGNESIUM - SERUM 2.1 mg/dL (1.8-2.4); PHOSPHOROUS 2.6 mg/dL (2.5-4.9); POTASSIUM - SERUM 3.9 mmol/L (3.5-5.1); PROTEIN - SERUM 7.3 g/dL (6.4-8.2)
--- NOTE | 2016-11-22 06:00 | NUR ---
NO VISITORS IN AT THIS TIME, PT RESTING EYES CLOSED ON VENT, VSS.
--- NOTE | 2016-11-22 07:00 | NUR ---
REPORT RECEIVED, ASSESSMENT COMPLETED. PATIENT IN SEMIFOWLERS POSITION WITH EYES CLOSED. DID NOT OPEN EYES WHEN SPOKEN TO, BUT DID OPEN THEM DURING ASSESSMENT. NO VISUAL CUES OF DISTRESS NOTED.
--- NOTE | 2016-11-22 08:36 | NUR ---
PATIENT PLACED ON CPAP.
--- NOTE | 2016-11-22 09:17 | NUR ---
DR FLEMING IS HERE NOW. TALKING WITH DAUGHTER AT BEDSIDE.
--- NOTE | 2016-11-22 10:18 | NUR ---
Nutrition Follow Up: Chart reviewed. Pt continues on vent support. Pulmocare @ 45 ml/hr which is goal rate. +BM 11/21/16. Labs noted - Na continues low. Meds noted including 1/2 NS @ 30 ml/hr, MV, Phenergan, Zofran. Rec continue current TF regimen. RD will continue to monitor pt progress.
--- NOTE | 2016-11-22 12:00 | NUR ---
PATIENT RR BETWEEN 30-40. TURNED BACK ON SIMV, RATE: 10, TV 600, PRESSURE SUPPORT 20, PEEP 5, FIO2 35%
--- NOTE | 2016-11-22 12:35 | NUR ---
PATIENTS BLOOD PRESSURES ARE STAYING LOWER. SPOKE WITH DR BAILEY. CATAPRES PATCH REMOVED.
--- NOTE | 2016-11-22 13:21 | OP ---
PATIENT NAME: RYLIE LUJAN MEDICAL RECORD: [id number] :37 LOCATION:[facility] D.2311 ADMISSION DATE:10/30/16 SURGEON: MEME ALCARAZ MD DATE OF OPERATION: 11/12/2016 PREOPERATIVE DIAGNOSES: 1. Postoperative fever. 2. Indwelling central venous catheter. 3. Achalasia, status post Heller myotomy. 4. Acute respiratory failure, on a ventilator. PREOPERATIVE DIAGNOSES: 1. Postoperative fever. 2. Indwelling central venous catheter. 3. Achalasia, status post Heller myotomy. 4. Acute respiratory failure, on a ventilator. PROCEDURE: Left subclavian vein triple-lumen central venous line placement. SURGEON: Meme Alcaraz MD REPORT OF PROCEDURE: The patient's left chest was prepped and draped in sterile fashion. A needle was used to cannulate the left subclavian vein. The guidewire was advanced with ease. Over this wire, a dilator was placed followed by the triple lumen catheter. The catheter aspirated a nonpulsatile dark blood and flushed easily in all 3 ports. This was sutured into place with 3-0 silk ties and dressed appropriately. The patient had an indwelling left IJ central venous catheter and this was removed and the tip was sent off for culture. COMPLICATIONS: None. CONDITION: Stable. ANESTHESIA: General endotracheal. BLOOD LOSS: Minimal. Procedure done in the ICU at the bedside. TRANSINT:[id number] Voice Confirmation ID: [id number] DOCUMENT ID: [id number] MEME ALCARAZ MD at 1321 CC: [id number] DICTATION DATE: 11/12/161727 RN PRODUCTION: 11/12/167 ADM IN [place] [id number] [place] [address]
--- NOTE | 2016-11-22 13:21 | OP ---
PATIENT NAME: RYLIE LUJAN MEDICAL RECORD: [id number] :37 LOCATION:[facility] D.2311 ADMISSION DATE:10/30/16 SURGEON: MEME ALCARAZ MD DATE OF OPERATION: 11/12/2016 PREOPERATIVE DIAGNOSES: 1. Acute respiratory failure, on ventilator. 2. Achalasia, status post Heller myotomy. POSTOPERATIVE DIAGNOSES: 1. Acute respiratory failure, on ventilator. 2. Achalasia, status post Heller myotomy. PROCEDURE: An 8-Zimbabwean percutaneous tracheostomy placement. SURGEON: Meme Alcaraz MD REPORT OF PROCEDURE: The patient's neck was prepped and draped in sterile fashion. A bronchoscope was inserted through the indwelling endotracheal tube and the endotracheal tube was pulled back. We found an area of the distal aspect of the trachea in the lower neck and a longitudinal incision was made overlying this and Angiocath needle was inserted under direct visualization and we could see it penetrating through the tracheal wall. A small dilator followed by the white Rhino dilator were inserted. This was followed by the 8-Zimbabwean tracheostomy tube. We then checked the tracheostomy tube and it was noted to be in good position in the trachea. This was sutured into place with 3-0 Prolene and dressed appropriately. COMPLICATIONS: None. CONDITION: Stable. ANESTHESIA: General endotracheal. BLOOD LOSS: Minimal. Procedure done at the bedside. TRANSINT:[id number] Voice Confirmation ID: [id number] DOCUMENT ID: [id number] MEME LACARAZ MD at 1321 CC: [id number] DICTATION DATE: 11/12/16 1559 CNA PER DIEM: 11/12/16 1640 ADM IN [place] [id number] [place] [id number]
--- NOTE | 2016-11-22 15:40 | NUR ---
PATIENT SWITCHED BACK TO CPAP. THIS TIME THE SETTINGS ARE TV 600, PRESSURE SUPPORT 20, PEEP 5 FIO2 35%. PATIENTS RESP ARE RANGING 24-28 AT THIS TIME. WILL MONITOR.
--- NOTE | 2016-11-22 15:51 | NUR ---
PATIENTS DAUGHTER JOHN HERE FOR VISITATIONS. ALL QUESTIONS ANSWERED. PATIENT OPENING EYES AND TURNING HER HEAD AWAY FROM HER REGARDLESS OF THE SIDE OF THE BED SHE MOVED TO. SHE EXPLAINED TO THE PATIENT THAT SHE WOULD JUST LET HER BE FOR THE REST OF THE DAY AND SEE HER TOMORROW. THE PATIENT CLOSED HER EYES TO THIS.
--- NOTE | 2016-11-22 16:07 | NUR ---
ALEJANDRINA BELLA CALLED [facility] AND SHE WILL COME BY ON FRIDAY TO [employer] CHAIR INFORMATION FOR REFERRAL.
--- NOTE | 2016-11-22 16:25 | NUR ---
PATIENTS B/P ELEVATED AND STAYING THERE. CATAPRES PATCH WAS REMOVED EARLIER TODAY SECONDARY TO HYPOTENSION PER DR BAILEY. SECONDARY TO THE HYPERTENSION THE PATCH WILL BE REPLACED. CALLED AND SPOKE WITH MEGAN IN PHARMACY. HE WILL BRING ANOTHER PATCH.
--- NOTE | 2016-11-22 18:57 | NUR ---
CDT SAMPLE COLLECTED FROM RECTAL TUBE PER DR BURGER VERBAL ORDERS.
--- NOTE | 2016-11-22 19:00 | NUR ---
Assessment complete. See flowsheet. Pt eyes open but does not track. Doll's eye movement negative. Corneal reflex present. Pt moves all extremities with 2/5 strength to painful stimulation and grimaces to ROM. Trach site CDI and secure to vent set SIMV Rate 10 TV 600 FiO2 @ 35% PEEP 5 PS 20. Lung sounds present crackles to all santos with diminished lower lobes. Pt trach inline sutioned with strong cough triggered and small amt culver sputum retrieved. HR ST 110bpm with S1S2 auscultated. All peripheral pulses +2 with capillary refill <3 seconds. Left subclavian CVL site CDI no s/s infection with 1/2NS infusing @ 30cc/hr. CVP setup zeroed and balanced reading 13 currently. Lap incision sites to abdomen x6 CDI with steri strips secure and no s/s infection. Left lateral chest dressing secure with no s/s infection and no drainage noted. BS present to all quadrants. PEG tube site CDI with Pulmocare TF @ 45cc/hr. Rectal tube secure retrieving liquid, culver stools. Macedo catheter secure retrieving concentrated, yellow urine. SCDs and foot drop boots removed and replaced to proper positioning. Pt pulled up in bed and positioned to left side with arms and heels bridged. HOB placed to 30 degrees. Bilat soft wrist restraints secured. Temp 102.3F orally. Room cooled. Will obtain BC per order. NO s/s pain or distress. CPOC.
--- NOTE | 2016-11-22 21:00 | NUR ---
Pt repositioned to right side. HOB @ 30 degrees. Oral care completed with mouth moisturizer applied.
--- NOTE | 2016-11-22 22:20 | NUR ---
A/C Rate 10 TV 600 FiO2 35% PEEP 5
--- NOTE | 2016-11-22 23:00 | NUR ---
Reassessment complete. See flowsheet. No neuro changes to note. Pt OET trach remains secure to vent set A/C from SIMV per Josefa RT for respirations 50/min with HR > 135bpm. Lung sounds continue to present crackles to all santos with diminished lower lobes. Pt trach inline suctioned with no sputum retrieved and strong cough triggered. HR ST 120BPM with S1S2 auscultated. All peripheral pulses remain +2 with capillary refill <3 seconds. CVL site CDI with NO IVF changes to note. BS remain present to all quadrants. Macedo remains secure retrieving concentrated, yellow urine. Temp now 101.6F. Pt repositioned to back with HOB @ 30 degrees. Rectal tube remains secure retrieving liquid, brown stools. PEG tube site unchanged with TF Pulmocare @ 45cc/hr. SCDs/Foot drop boots secure. Linens clean and dry. NO s/s pain or distress after vent setting changes. Bilat soft wrist restraints secured after ROM completed to all extremities. No other changes to note. CPOC.
[2016-11-23] VITALS (24 sets, daily range): BP systolic 99–169; BP diastolic 51–107
--- NOTE | 2016-11-23 01:00 | NUR ---
Pt repositioned to left side. Oral care completed with mouth moisturizer applied. VSS.
--- NOTE | 2016-11-23 03:00 | NUR ---
Reassessment complete. See flowsheet. Pt coughing and suctioned with no sputum retrieved. Trach remains secure to vent with no setting changes to note. Lung sounds currently clear to all santos with diminished lower lobes. HR ST 116BPM with S1S2 auscultated. All peripheral pulses remain +2 with capillary refill <3 seconds. CVL site CDI; unchanged with NO IVF changes to note from previous assessment. Left lateral chest dressing site CDI; secure. Lap incision sites to abdomen unchanged. Abdomen firm and distended with BS present to all quadrants. PEG tube site CDI and remains secure to TF Pulmocare infusing @ 45cc/hr. Rectal tube secure retrieving small amt liquid, brown stools. Macedo secure retrieving concentrated, yellow urine. Pt pulled up in bed and positioned to back with HOB @ 30 degrees. Temp 102.1F orally. CPOC.
--- NOTE | 2016-11-23 05:00 | NUR ---
Pt repositioned to left side. HOB @ 30 degrees. Oral care completed with mouth moisturizer applied. HR SR. NO s/s pain or distress. CPOC.
[2016-11-23 05:01] LABS: BASOPHILS 0.8 % (0.0-2.0); EOSINOPHILS 4.4 % (0-7); HEMATOCRIT 26.6 % (36.0-48.0); HEMOGLOBIN 8.5 g/dL (12-16); IMMATURE GRANULOCYTES 0.7 % (0-5); MCH 28.4 pg (26.0-34.0); MONOCYTES 16.4 % (2-11); NEUTROPHILS 54.7 % (40-80); PLATELET COUNT 687 10x3/uL (130-400); RBC 2.99 10x6/uL (4.00-5.40); RDW 14.5 % (11.5-14.5); WBC 9.1 10x3/uL (4.8-10.8)
[2016-11-23 06:25] LABS: ALBUMIN 3.2 g/dL (3.4-5.0); ALKALINE PHOSPHATASE 121 U/L (46-116); CALC OSMOLALITY 264 mosm/kg (275-300); CALCIUM 8.7 mg/dL (8.5-10.1); CARBON DIOXIDE 19.5 mmol/L (21.0-32.0); CHLORIDE - SERUM 97 mmol/L (98-107); CREATININE - SERUM 0.6 mg/dL (0.6-1.3); GLUCOSE 109 mg/dL (74-106); MAGNESIUM - SERUM 1.9 mg/dL (1.8-2.4); PROTEIN - SERUM 6.6 g/dL (6.4-8.2); SODIUM 130 mmol/L (136-145); UREA NITROGEN 20 mg/dL (7-18); eGFR NON AFRICAN AMERICAN > 90 mL/min (90-120)
[2016-11-23 06:26] LABS: ALT (SGPT) 62 U/L (10-68)
--- NOTE | 2016-11-23 08:57 | NUR ---
ASSESSMENT COMPLETE - TURNED TOWARD RIGHT ON TURN BED. PT AWAKE - ANSWERS YES/NO QUESTIONS APPROPRIATELY. CPOC
--- NOTE | 2016-11-23 10:50 | NUR ---
DR. BAILEY ON UNIT - ASKED TO NOTIFY FAMILY (POAs) TO OBTAIN CONSENT FOR BHRONC DUE TO PT HAD FEVER THIS A.M. SPOKE TO BOTH POAs - OBTAIN VERBAL CONSENT FOR PROCEDURE. CPOC
--- NOTE | 2016-11-23 11:15 | NUR ---
MD AND RT AT BEDSIDE FOR BRHONC - SEE RT FLOW SHEET
--- NOTE | 2016-11-23 11:30 | NUR ---
PT WITH TEMP 101.9 (ORAL) INFORMED DR. BAILEY - ORDER FOR 650MG TYENOL FOR FEVER >101.0. CALLED PHARMACY TO RELEASE RX - AWAITING MEDICATION - CPOC
--- NOTE | 2016-11-23 11:45 | NUR ---
LAB CALLED PT IS +COCCI - INFORMED DR BAILEY -
--- NOTE | 2016-11-23 12:00 | NUR ---
PT TEMP AT 98.6 ORAL CPOC
--- NOTE | 2016-11-23 14:00 | NUR ---
SPOKE TO JOHN - GAVE poa UPDATE ON PT'S CARE - ANSWERED ALL QUESTIONS - CPOC
--- NOTE | 2016-11-23 14:49 | NUR ---
NEW TUBE FEED SET UP WITH PULHICARE PER ORDERED
--- NOTE | 2016-11-23 17:26 | NUR ---
NO ACUTE CHANGES - PT RESTING WITH EYE CLOSED - RESPIRATIONS REG RATE AND RHYTHM - CPOC
--- NOTE | 2016-11-23 18:04 | NUR ---
NO ACUTE CHANGES - PT RESTING WITH EYE CLOSED - RESP REG RATE RHTYHM CPOC
--- NOTE | 2016-11-23 19:00 | NUR ---
Assessment complete. See flowsheet. Pt moving all extremities in bed against gravity with 4/5 strength; nonpurposeful. Pt opens eyes spontaneously but does not track with eyes or attempt to follow commands. Corneal reflex present. Pupils size 3 bilaterally ERRL. +1 pitting edema noted to upper extremities. 8.0FR Trach site CDI and secure to ventilator set SIMV Rate 10 TV 600 FiO2 @ 35% PEEP 5 PS 20. Lung sounds present crackles to all santos with diminished lower lobes. Pt trach inline suctioned with cough triggered and thick, culver sputum retrieved. HR SR with S1S2 auscultated. All peripheral pulses +2 with capillary refill <3 seconds. Left subclavian CVL site CDI; no s/s infection with 1/2NS infusing @ 30cc/hr. Abdomen firm and distended with BS present to all quadrants. Left lateral chest dressing site from previous chest tube CDI and secure with no s/s infection and no drainage noted. Lap incision sites to abdomen x6 visualized and well-approximated with steristrips secure and no s/s infection or drainage noted from sites. PEG tube site CDI and secure to Pulmocare infusing @ 45cc/hr. Rectal tube retrieving soft, yellow stools. Leakage noted from kink in tubing around rectum. Pt linen change and pericare completed. Reddened skin to inner buttocks left and right noted and skin barrier cream applied. Macedo catheter secure retrieving concentrated, thi urine. Temp currently 100.0F orally. Pt pulled up in bed and positioned to left side with HOB elevated to 30 degrees. ROM completed to all extremities. Arms and heels bridged. Foot drop boots and SCDs secured bilaterally. Bilat soft wrist restraints secured. CPOC.
--- NOTE | 2016-11-23 21:00 | NUR ---
Pt repositioned to right side. HOB @ 30 degrees. Oral care completed with mouth moisturizer applied.
--- NOTE | 2016-11-23 23:00 | NUR ---
Reassessment complete. See flowsheet. No neuro changes to note. Trach remains secure to ventilator with no setting changes to note. Lung sounds continue to present crackles to all santos with diminished lower lobes. Trach inline suctioned with strong cough triggered and no sputum retrieved. Oral care completed with mouth moisturizer applied. CVL site CDI; unchanged with NO IVF changes to note. HR ST 111BPM with S1S2 auscultated. All peripheral pulses remain +2 with capillary refill <3 seconds. All dressing sites unchanged. Abdomen remains firm and distended with BS present to all quadrants. Pulmocare @ 45cc/hr to PEG tube site. Macedo remains secure retrieving concentrated, thi urine. Pt pulled up in bed and positioned to back with HOB @ 30 degrees. Arms and heels rebridged. Bilat soft wrist restraints resecured after ROM to all extremities. Linens remain clean and dry. Temp 99.5F orally. CPOC.
[2016-11-24] VITALS (25 sets, daily range): BP systolic 110–164; BP diastolic 57–106
--- NOTE | 2016-11-24 01:00 | NUR ---
Pt repositioned to left side. HOB @ 30 degrees. Linens remain clean and dry. Oral care completed per RT. No other changes to note. CPOC.
--- NOTE | 2016-11-24 03:00 | NUR ---
Reassessment complete. See flowsheet. No neuro changes to note. Trach remains secure to ventilator with no setting changes to note. Lung sounds continue to present crackles to all santos with diminished lower lobes. Trach inline suctioned with strong cough triggered and no sputum retrieved. Oral care completed with mouth moisturizer applied. CVL site CDI; unchanged with NO IVF changes to note. HR ST 120BPM with S1S2 auscultated. All peripheral pulses remain +2 with capillary refill <3 seconds. All dressing sites unchanged. Abdomen remains firm and distended with BS present to all quadrants. Pulmocare @ 45cc/hr to PEG tube site. Macedo remains secure retrieving concentrated, thi urine. Pt pulled up in bed and positioned to back with HOB @ 30 degrees. Arms and heels rebridged. Bilat soft wrist restraints resecured after ROM to all extremities. Linens remain clean and dry. Temp 101.6F orally. Sheet removed and room cooled. CPOC.
--- NOTE | 2016-11-24 05:00 | NUR ---
Pt positioned to right side. HOB @ 30 degrees. Oral care completed
[2016-11-24 05:31] LABS: BASOPHILS 0.9 % (0.0-2.0); EOSINOPHILS 5.3 % (0-7); HEMATOCRIT 29.3 % (36.0-48.0); HEMOGLOBIN 9.3 g/dL (12-16); IMMATURE GRANULOCYTES 0.6 % (0-5); LYMPHOCYTES 23.2 % (15-50); MCHC 31.7 g/dL (31.0-37.0); MCV 88.3 fL (80.0-100.0); MEAN PLATELET VOLUME 10.4 fL (7.4-10.4); MONOCYTES 16.5 % (2-11); NEUTROPHILS 53.5 % (40-80); PLATELET COUNT 736 10x3/uL (130-400); RBC 3.32 10x6/uL (4.00-5.40); RDW 14.7 % (11.5-14.5); WBC 9.3 10x3/uL (4.8-10.8)
[2016-11-24 05:51] LABS: ALBUMIN 3.4 g/dL (3.4-5.0); ALKALINE PHOSPHATASE 120 U/L (46-116); ALT (SGPT) 57 U/L (10-68); BILIRUBIN - TOTAL 0.55 mg/dL (0.2-1.3); CALC OSMOLALITY 265 mosm/kg (275-300); CALCIUM 9.2 mg/dL (8.5-10.1); CARBON DIOXIDE 21.1 mmol/L (21.0-32.0); CHLORIDE - SERUM 98 mmol/L (98-107); CREATININE - SERUM 0.6 mg/dL (0.6-1.3); GLUCOSE 109 mg/dL (74-106); MAGNESIUM - SERUM 1.9 mg/dL (1.8-2.4); PHOSPHOROUS 3.3 mg/dL (2.5-4.9); POTASSIUM - SERUM 4.4 mmol/L (3.5-5.1); SODIUM 131 mmol/L (136-145); UREA NITROGEN 17 mg/dL (7-18); eGFR NON AFRICAN AMERICAN > 90 mL/min (90-120)
[2016-11-24 13:53] LABS: APPEARANCE HAZY (CLEAR); BILIRUBIN NEGATIVE (NEGATIVE); COLOR YELLOW (YELLOW); GLUCOSE NEGATIVE (NEGATIVE); KETONE NEGATIVE (NEGATIVE); LEUKOCYTE ESTERASE 1+ (NEGATIVE); NITRITE NEGATIVE (NEGATIVE); PROTEIN TRACE mg/dL (NEGATIVE); UROBILINOGEN NORMAL (NORMAL)
[2016-11-24 13:54] LABS: BACTERIA FEW /hpf (NONE SEEN); EPITHELIAL CELLS 0-5 /hpf (0-5); RED CELLS - URINE 0-5 /hpf (0-5); WHITE CELLS - URINE 0-5 /hpf (0-5); YEAST <1+ /hpf (NONE SEEN)
--- NOTE | 2016-11-24 19:30 | NUR ---
ASSESSMENT COMPLETE. S1S2. NSR SHOWING ON MONITOR. PT VENTED VIA TRACH. ON DROPLET ISOLATION. RR EQUAL; CRACKLES BILATERALLY IN UPPER AND MID LOBES; DIMINISHED BILATERALLY IN LOWER LOBES. PUPILS EQUAL; SLUGGISH. PT DOES NOT FOLLOW COMMANDS. MOVES EXTREMITIES; NOT PURPOSEFUL MOVEMENT. RADIAL AND PEDAL PULSES PALPATED. BOWEL SOUNDS ACTIVE. RECTAL TUBE, CISNEROS, SCD, AND FOOT DROP BOOTS IN PLACE. RIGHT IJ; PATENT.
--- NOTE | 2016-11-24 23:15 | NUR ---
REASSESSMENT COMPLETE. NO CHANGES FROM PREVIOUS ASSESSMENT. VSS. NO DISTRESS NOTED. WILL CONTINUE TO MONITOR.
[2016-11-25] VITALS (22 sets, daily range): BP systolic 55–148; BP diastolic 45–90
--- NOTE | 2016-11-25 02:50 | NUR ---
REASSESSMENT COMPLETE. NO CHANGES FROM PREVIOUS ASSESSMENT. VSS. NO DISTRESS NOTED. SEE FLOW SHEET FOR FURTHER DETAILS.
--- NOTE | 2016-11-25 04:00 | NUR ---
I/O COLLECTED. CISNEROS EMPTIED. RECTAL BAG CHANGED. PUMPS CLEARED.
--- NOTE | 2016-11-25 06:30 | NUR ---
FAMILY CALLED; SPOKE WITH JOHN. UPDATE ON PT CONDITION. QUESTIONS ANSWERED. WOULD LIKE TO SPEAK TO DOCTOR.
--- NOTE | 2016-11-25 07:30 | NUR ---
REC'D REPORT AND RESUMED CARE, VENT TO TRACH AND SECURED, DOES NOT FOLLOW COMMANDS, GRIMACES TO TACTILE STIMULI, VSS, ASSESSMENT COMPLETE PER FLOWSHEET, REPOSITIONED TO LEFT SIDE WITH PILLOW PROPPED TO BACK AND HEELS FLOATED
--- NOTE | 2016-11-25 09:15 | NUR ---
AM MEDS GIVEN PER PROTOCAL
--- NOTE | 2016-11-25 09:59 | NUR ---
NUTRITION MONITORING & EVAL CHART REVIEWED. SPOKE WITH NURSING. PT TOLERATING PULMOCARE AT GOAL RATE 45 CC/HR. NOTE POSSIBLE LTACH TX. RD FOLLOWING
--- NOTE | 2016-11-25 11:00 | NUR ---
NO ACUTE CHANGE FROM PREVIOUS ASSESSMENT, NO SIGN OF DISTRESS, WILL CONTINUE WITH POC
[2016-11-25 11:12] LABS: FUNGUS MYCOLOGY CULTURE Preliminary report (())
--- NOTE | 2016-11-25 12:00 | NUR ---
PC FROM SISTER, PASSWORD OBTAINED, STATUS UPDATE GIVEN
[2016-11-25 12:22] LABS: BASOPHILS 0.3 % (0.0-2.0); EOSINOPHILS 7.6 % (0-7); HEMATOCRIT 28.3 % (36.0-48.0); HEMOGLOBIN 9.2 g/dL (12-16); IMMATURE GRANULOCYTES 0.4 % (0-5); LYMPHOCYTES 10.5 % (15-50); MCH 28.8 pg (26.0-34.0); MCHC 32.5 g/dL (31.0-37.0); MCV 88.7 fL (80.0-100.0); MEAN PLATELET VOLUME 10.4 fL (7.4-10.4); MONOCYTES 7.8 % (2-11); NEUTROPHILS 73.4 % (40-80); RBC 3.19 10x6/uL (4.00-5.40); WBC 11.6 10x3/uL (4.8-10.8)
[2016-11-25 12:26] LABS: PLATELET COUNT 504 10x3/uL (130-400)
[2016-11-25 12:31] LABS: ALBUMIN 2.9 g/dL (3.4-5.0); ALKALINE PHOSPHATASE 100 U/L (46-116); BILIRUBIN - TOTAL 0.42 mg/dL (0.2-1.3); CALC OSMOLALITY 269 mosm/kg (275-300); CALCIUM 8.4 mg/dL (8.5-10.1); CARBON DIOXIDE 19.5 mmol/L (21.0-32.0); CHLORIDE - SERUM 101 mmol/L (98-107); CREATININE - SERUM 0.6 mg/dL (0.6-1.3); GLUCOSE 114 mg/dL (74-106); MAGNESIUM - SERUM 1.8 mg/dL (1.8-2.4); PHOSPHOROUS 2.6 mg/dL (2.5-4.9); PRE-ALBUMIN 14.3 mg/dL (18.0-35.7); PROTEIN - SERUM 6.4 g/dL (6.4-8.2); SODIUM 133 mmol/L (136-145); UREA NITROGEN 21 mg/dL (7-18); eGFR NON AFRICAN AMERICAN > 90 mL/min (90-120)
[2016-11-25 12:32] LABS: ALT (SGPT) 40 U/L (10-68); POTASSIUM - SERUM 3.6 mmol/L (3.5-5.1)
--- NOTE | 2016-11-25 15:00 | NUR ---
NO ACUTE CHANGE FROM PREVIOUS ASSESSMENT, VSS, REPOSITIONED TO BACK WITH HEELS FLOATED, EYES OPEN, DOES NOT FOLLOW COMMANDS
--- NOTE | 2016-11-25 16:50 | NUR ---
CM REASSESSMENT NOTE: CM REC. CALL FROM [facility] AND PATIENT HAS BEEN DENIED. [facility] STATED SEVERAL REASONS AND THAT THEY WOULD CALL THE FAMILY. FAMILY IS NOT AGREEING ON WHAT TO DO WITH PATIENT, AND PATIENT NOT RESPONDING PER [facility].
--- NOTE | 2016-11-25 18:00 | NUR ---
METRONIDAZOLE 500 MG, HUNG SECONDARY, REPOSITIONED TO BACK WITH HEELS FLOATED, MORE AWAKE, VSS, DOES NOT FOLLOW COMMANDS
--- NOTE | 2016-11-25 19:30 | NUR ---
REPORT RECEIVED AND CARE ASSUMED. SHIFT ASSESSMENT COMPLETED PER FLOWSHEET. PT MONITORED PER STANDARD ICU PROTOCOL WITH ALL ALARMS SET AND VERIFIED. PT CONTINUES TO BE TOTAL CARE FOR ALL ADL'S. CONTINUES ON VENTILATOR PER TRACH. ALL IVF PER PUMP WITH ALL LINES AND IVF LABELED AND DATED AND ARE CURRENT.
--- NOTE | 2016-11-25 21:00 | NUR ---
NO VISITORS AT THIS TIME. MEDS GIVEN PER OCT.
--- NOTE | 2016-11-25 22:30 | NUR ---
CALL RECEIVED FROM XAVIERJOHN, PASSWORD VERIFIED. INFORMATION GIVEN AND ANSWERS ANSWERED.
--- NOTE | 2016-11-25 23:00 | NUR ---
SHIFT REASSESSMENT COMPLETED SEE FLOWSHEET. RT AWARE OF ORDER FOR CT. WILL WAIT FOR OPPORTUNITY TO TRANSFER FOR EXAM
--- NOTE | 2016-11-25 23:29 | NUR ---
PT WITH SIGNS OF ANXIETY, INCREASED RESP AND RESTLESSNESS. GIVEN ATIVAN PER DOCUMENTED ON MAR
[2016-11-26] VITALS (24 sets, daily range): BP systolic 101–183; BP diastolic 49–110
--- NOTE | 2016-11-26 01:00 | NUR ---
RESP REG AND NONLABORED. AT TIMES INCREASED TO 30 WITH ANXIETY. PT REFOCUSED AND STIMULI REMOVED TO DECREASE AGGITATION.
--- NOTE | 2016-11-26 03:00 | NUR ---
SHIFT REASSESSMENT COMPLETED SEE FLOWSHEET
[2016-11-26 03:49] LABS: BASOPHILS 0.2 % (0.0-2.0); EOSINOPHILS 9.6 % (0-7); HEMATOCRIT 27.8 % (36.0-48.0); HEMOGLOBIN 9.1 g/dL (12-16); IMMATURE GRANULOCYTES 0.4 % (0-5); LYMPHOCYTES 13.7 % (15-50); MCH 28.8 pg (26.0-34.0); MCHC 32.7 g/dL (31.0-37.0); MEAN PLATELET VOLUME 10.2 fL (7.4-10.4); NEUTROPHILS 66.1 % (40-80); RBC 3.16 10x6/uL (4.00-5.40); RDW 14.9 % (11.5-14.5)
[2016-11-26 03:50] LABS: PLATELET COUNT 697 10x3/uL (130-400)
[2016-11-26 03:56] LABS: CALC OSMOLALITY 274 mosm/kg (275-300); CALCIUM 8.7 mg/dL (8.5-10.1); CARBON DIOXIDE 23.4 mmol/L (21.0-32.0); CHLORIDE - SERUM 101 mmol/L (98-107); CREATININE - SERUM 0.6 mg/dL (0.6-1.3); GLUCOSE 130 mg/dL (74-106); MAGNESIUM - SERUM 1.8 mg/dL (1.8-2.4); POTASSIUM - SERUM 3.4 mmol/L (3.5-5.1); SODIUM 136 mmol/L (136-145); UREA NITROGEN 16 mg/dL (7-18); eGFR NON AFRICAN AMERICAN > 90 mL/min (90-120)
--- NOTE | 2016-11-26 05:00 | NUR ---
I&O COMPLETED AND DOCUMENTED. PT RESTING AT THIS TIME. MEDS PER MAR
--- NOTE | 2016-11-26 07:00 | NUR ---
REC'D REPORT AND RESUMED CARE, VENT TO TRACH AND SECURED, LEFT IJ TL WITH 1/2NS AT 30 CC/HR, PEG WITH PULMOCARE AT 45 CC/HR, FOOLRY TO GRAVITY WITH CONCENTRATED DRAINAGE, RECTAL TUBE IN PLACE WITH LIQUID STOOL TO BAG, SCD'S AND BOOTS B/L, CONFUSED, FOLLOWS SIMPLE COMMANDS, REPOSITIONED UP AND TO BACK WITH HEELS FLOATED, ASSESSMENT COMPLETE PER FLOWSHEET, VSS
--- NOTE | 2016-11-26 09:00 | NUR ---
CALL FROM DAUGHTER JOHN, PASSWORD OBTAINED, STATUS UPDATE GIVEN, AWAITING INFORMATION RE[facility], STATED THAT SHE IS POA AND IF SHE IS NOT ABLE TO MAKE DECISIONS THAT HER SISTER SAVITA WOULD BECOME POA,
--- NOTE | 2016-11-26 09:30 | NUR ---
AM MEDS GIVEN PER MAR FLOWSHEET AND PROTOCAL
--- NOTE | 2016-11-26 09:45 | NUR ---
PT HERE FOR ROM EXCERSIS...COMPLETED
--- NOTE | 2016-11-26 11:00 | NUR ---
ASSESSMENT COMPLETE, NO ACUTE CHANGE FROM PREVIOUS,
--- NOTE | 2016-11-26 12:09 | NUR ---
11/26/2016 12:07 DCP: Discharge Planning Rec'd voicemail from daughter, Kristyn Mraley, inquiring about the status of transfer to [facility]. Returned voice mail, stating patient has been denied by [facility] Advised her to return call with any questions.
--- NOTE | 2016-11-26 12:25 | NUR ---
PC TO DAUGHTER JOHN, DR LAUREANO SPOKE WITH HER IN RE: TO FAMILY MEETING, DR LINDA ROOT,
--- NOTE | 2016-11-26 13:12 | NUR ---
HR 158, RESP 53, NEW ORDER GIVEN BY DR LAUREANO FOR ATIVAN 0.5MG IV Q2HPRN, BP 183/110, VENT SETTINGS CHANGED TO ASSIST CONTROL RATE OF 12
--- NOTE | 2016-11-26 15:00 | NUR ---
ASSESSMENT COMPLETE PER FLOWSHEET, NO ACUTE CHANGE FROM PREVIOUS, VSS, CONTINUES ON VENT ON AC, REPOSITIONED TO RIGHT SIDE WITH PILLOW PROPPED TO BACK AND HEELS FLOATED
--- NOTE | 2016-11-26 15:47 | NUR ---
I AND O'S COMPLETED, DAUGHTERS, JOHN AND SAVITA ALONG WITH PATIENTS SISTER HERE FOR VISIT AWAITING MEETING WITH DR LAUREANO AND LINDA
--- NOTE | 2016-11-26 17:34 | NUR ---
CATH FLOW REMOVED FROM MEDIAL AND PROXIMAL PROT OF LTSCTL, 10 CC BLOOD REMOVE, FLUSHED WITH [address] MCKEON, IVF RECONNECTED FOR INFUSION
--- NOTE | 2016-11-26 19:00 | NUR ---
REPORT RECEIVED AND CARE ASSUMED INITIAL SHIFT ASSESSMENT COMPLETED FOR FLOWSHEET. ALL IVF VERIFIED TO BE CURRENT AND DATED CORRECTLY. PT RECEIVING PULMOCARE VIA PUMP. PLACEMENT VERIFIED AND RESIDUAL CHECKED LESS THAN 5CC. RETURNED AND FEEDING RESUMED. PT BEING MONITORED PER STANDARD ICU PROTOCOL WITH ALL ALARMS VERIFIED AND CHECKED.
[2016-11-26 19:10] LABS: ACID FAST SMEAR Negative (()); AFB SPECIMEN PROCESSING Concentration (())
--- NOTE | 2016-11-26 21:00 | NUR ---
NO VISITORS AT THIS TIME. MEDS GIVEN DOCUMENTED ON MAR
--- NOTE | 2016-11-26 23:00 | NUR ---
SHIFT REASSESSMENT PER FLOWSHEET. PT CONTINUES TO BE TURNED AND REPOSITIONED Q2H WITH PILLOWS USED TO PROVIDE SUPPORT AND RELIEVE PRESSURE. HEELS ARE FLOATED WELL IN FOOT DROP PREVENTION BOOTS. PT ON AIR OVERLAY.
[2016-11-27] VITALS (24 sets, daily range): BP systolic 102–160; BP diastolic 50–109
--- NOTE | 2016-11-27 01:00 | NUR ---
RESP REG AND NONLABORED.
[2016-11-27 04:02] LABS: BASOPHILS 0.3 % (0.0-2.0); EOSINOPHILS 7.8 % (0-7); HEMATOCRIT 29.1 % (36.0-48.0); HEMOGLOBIN 9.3 g/dL (12-16); IMMATURE GRANULOCYTES 0.5 % (0-5); LYMPHOCYTES 12.9 % (15-50); MCH 28.3 pg (26.0-34.0); MCV 88.4 fL (80.0-100.0); MEAN PLATELET VOLUME 10.3 fL (7.4-10.4); MONOCYTES 11.7 % (2-11); NEUTROPHILS 66.8 % (40-80); PLATELET COUNT 716 10x3/uL (130-400); RBC 3.29 10x6/uL (4.00-5.40)
[2016-11-27 04:15] LABS: CALC OSMOLALITY 273 mosm/kg (275-300); CALCIUM 9.5 mg/dL (8.5-10.1); CARBON DIOXIDE 25.6 mmol/L (21.0-32.0); CHLORIDE - SERUM 100 mmol/L (98-107); CREATININE - SERUM 0.6 mg/dL (0.6-1.3); GLUCOSE 122 mg/dL (74-106); MAGNESIUM - SERUM 1.8 mg/dL (1.8-2.4); SODIUM 136 mmol/L (136-145); UREA NITROGEN 15 mg/dL (7-18); eGFR NON AFRICAN AMERICAN > 90 mL/min (90-120)
[2016-11-27 04:25] LABS: POTASSIUM - SERUM 3.7 mmol/L (3.5-5.1)
--- NOTE | 2016-11-27 10:03 | NUR ---
NUTRITION MONITORING & EVAL CONTINUES PULMOCARE @ GOAL RATE 45 CC/HR. WILL CONTINUE TO PROVIDE PULMOCARE, MONITOR PT PROGRESS. RD FOLLOWING
[2016-11-27 11:17] LABS: FUNGUS STAIN Final report (())
--- NOTE | 2016-11-27 19:00 | NUR ---
REPORT RECEIVED AND ASSESSMENT COMPLETED. SEE FLOWSHEET FOR FULL DETAILS. VSS. WILL CONTINUE TO MONITOR.
--- NOTE | 2016-11-27 21:00 | NUR ---
2100 MEDS GIVEN.ROTATED PT AND REMOVED BLANKET PER HER REQUEST. COVERED WITH SHEET FOR NOW. WILL CONTINUE TO MONITOR.
--- NOTE | 2016-11-27 23:00 | NUR ---
REASSESSMENT COMPLETED. SEE FLOWSHEET FOR FULL DETAILS. NO OTHER CHANGES IN PT STATUS AT THIS TIME. VSS. WILL MONITOR.
[2016-11-28] VITALS (24 sets, daily range): BP systolic 93–140; BP diastolic 43–84
--- NOTE | 2016-11-28 01:00 | NUR ---
TUBE FEEDING CHANGED AT THIS TIME. NO OTHER CHANGES TO REPORT. WILL MONITOR.
--- NOTE | 2016-11-28 03:00 | NUR ---
reassessment completed. see flowsheet for full details. vss. will continue to monitor.
--- NOTE | 2016-11-28 05:00 | NUR ---
no changes at this time. vss. will continue to monitor
[2016-11-28 05:10] LABS: BASOPHILS 0.2 % (0.0-2.0); EOSINOPHILS 6.1 % (0-7); HEMOGLOBIN 8.7 g/dL (12-16); IMMATURE GRANULOCYTES 0.3 % (0-5); LYMPHOCYTES 14.3 % (15-50); MCH 28.4 pg (26.0-34.0); MCHC 32.2 g/dL (31.0-37.0); MCV 88.2 fL (80.0-100.0); MEAN PLATELET VOLUME 10.2 fL (7.4-10.4); MONOCYTES 12.1 % (2-11); PLATELET COUNT 654 10x3/uL (130-400); RBC 3.06 10x6/uL (4.00-5.40); WBC 12.8 10x3/uL (4.8-10.8)
[2016-11-28 05:38] LABS: CALC OSMOLALITY 272 mosm/kg (275-300); CALCIUM 8.9 mg/dL (8.5-10.1); CARBON DIOXIDE 28.5 mmol/L (21.0-32.0); CHLORIDE - SERUM 97 mmol/L (98-107); CREATININE - SERUM 0.7 mg/dL (0.6-1.3); GLUCOSE 108 mg/dL (74-106); MAGNESIUM - SERUM 1.6 mg/dL (1.8-2.4); POTASSIUM - SERUM 3.2 mmol/L (3.5-5.1); SODIUM 134 mmol/L (136-145); eGFR NON AFRICAN AMERICAN 85 mL/min (90-120)
[2016-11-28 05:50] LABS: UREA NITROGEN 23 mg/dL (7-18)
--- NOTE | 2016-11-28 09:00 | NUR ---
NO VISITORS AT THIS TIME.
--- NOTE | 2016-11-28 09:58 | NUR ---
NUTRITION MONITORING & EVAL CHART REVIEWED. PT REMAINS WITH TRACH AND PEG. TOLERATING PULMOCARE AT GOAL RATE 45 CC/HR. RD FOLLOWING
--- NOTE | 2016-11-28 11:28 | NUR ---
GRANDDAUGHTER LULÚ CALLED. ASKED FOR UPDATE. SHE PROVIDED PASSWORD NO CHANGES AT THIS TIME. PT HAS BEEN AWAKE AND ALERT THIS MORNING. LULÚ ASKED IF THERE WERE PLANS TO EXTUBATE PATIENT. SAYS IS GETTING CONFLICTING REPORTS FROM OTHER FAMILY.
--- NOTE | 2016-11-28 12:05 | NUR ---
FAMILY HERE FOR NOON VISITATION. ASKING FOR DR MCKEON. HAVE PAGED HIM. HE WAS NOTIFIED BY LANRE PLATA EARLIER THAT THE FAMILY HAD CALLED AND SAID THEY WOULD BE IN AT THE NOON VISIT AND WANTED TO SPEAK TO HIM.
--- NOTE | 2016-11-28 12:37 | NUR ---
SPOKE WITH DR MCKEON, IS IN CLINIC. WILL BE OVER WHEN HE CAN TO SPEAK WITH FAMILY. DAUGHTER ASKED ABOUT PT ATIVAN. LET HER KNOW THAT WE WEREN'T GIVING IT UNLESS NEEDED. IT IS SEDATING. TOLD HER IT INHIBITED BEING ABLE TO ASSESS MENTATION OF PATIENT. WANTS HER SEDATED, "HAS BEEN ALL MONTH" THEN ASKED ABOUT BEING ON VENTILATOR. LET HER KNOW WE TRIALED EARLIER THIS MORNING AND WAS NOT ABLE TO TOTALLY BREATHE ON HER OWN. HAS TO HAVE ASSIST BY MACHINE. SHE THEN TOLD ME "DON'T BULLSHIT ME, I TALKED TO THE DOCTOR YESTERDAY" AND THEN SHE TURNED HER BACK TO ME.
--- NOTE | 2016-11-28 12:43 | NUR ---
DR MCKEON HERE SPEAKING WITH DAUGHTER NOW.
--- NOTE | 2016-11-28 12:57 | NUR ---
DR MCKEON SPOKE WITH DAUGHTER EXTENSIVELY. SHE IS NOW AT BEDSIDE WITH PATIENT. DR MCKEON HAS RETURNED TO CLINIC.
--- NOTE | 2016-11-28 19:20 | NUR ---
SHIFT ASSESSMENT COMPLETE, SEE FLOWSHEET FOR DETAILS. PATIENT TRACHED AND ON VENT. A&O, CAN FOLLOW COMMANDS. VSS.
--- NOTE | 2016-11-28 21:00 | NUR ---
MEDS GIVEN. NO VISITORS AT THIS TIME.
--- NOTE | 2016-11-28 23:10 | NUR ---
REASSESSMENT COMPLETE, NO CHANGES. VSS, WILL MONITOR.
[2016-11-29] VITALS (21 sets, daily range): BP systolic 106–151; BP diastolic 51–107
--- NOTE | 2016-11-29 01:05 | NUR ---
RESTING WELL. FEEDING TUBES CHANGED. VSS.
--- NOTE | 2016-11-29 03:05 | NUR ---
PATIENT INCONTINENT OF STOOL. CLEANED UP AND LINENS CHANGED. TOLERATED WELL. VSS.
[2016-11-29 05:03] LABS: BASOPHILS 0.3 % (0.0-2.0); HEMATOCRIT 26.7 % (36.0-48.0); HEMOGLOBIN 8.6 g/dL (12-16); IMMATURE GRANULOCYTES 0.5 % (0-5); LYMPHOCYTES 14.4 % (15-50); MCH 28.5 pg (26.0-34.0); MCHC 32.2 g/dL (31.0-37.0); MCV 88.4 fL (80.0-100.0); MEAN PLATELET VOLUME 10.6 fL (7.4-10.4); MONOCYTES 11.8 % (2-11); PLATELET COUNT 674 10x3/uL (130-400); RBC 3.02 10x6/uL (4.00-5.40); RDW 15.4 % (11.5-14.5); WBC 14.6 10x3/uL (4.8-10.8)
[2016-11-29 05:21] LABS: CALC OSMOLALITY 274 mosm/kg (275-300); CARBON DIOXIDE 29.5 mmol/L (21.0-32.0); CHLORIDE - SERUM 97 mmol/L (98-107); CREATININE - SERUM 0.6 mg/dL (0.6-1.3); GLUCOSE 132 mg/dL (74-106); POTASSIUM - SERUM 3.4 mmol/L (3.5-5.1); SODIUM 134 mmol/L (136-145); UREA NITROGEN 27 mg/dL (7-18); eGFR NON AFRICAN AMERICAN > 90 mL/min (90-120)
[2016-11-29 05:24] LABS: MAGNESIUM - SERUM 2.1 mg/dL (1.8-2.4)
--- NOTE | 2016-11-29 06:00 | NUR ---
NO VISITORS AT THIS TIME.
--- NOTE | 2016-11-29 09:30 | NUR ---
DAUGHTER JOHN CALLED TO CHECK ON PT. ASKED IF WE WERE GOING TO TURN OFF THE MACHINE TODAY. ONCE AGAIN ATTEMPTED TO EXPLAIN WE HAD PATIENT ON SPONTANEOUS VENTILATION AND HAS BEEN SINCE YESTERDAY MORNING. WE ARE SLOWLY WEANING HER AND SHE IS PROGRESSING WELL ENOUGH THAT DR MCKEON ANTICIPATES HAVING THE PATIENT ON A TRACH COLLAR LATER THIS AFTERNOON. SHE AGAIN ASKED WHAT TIME THIS AFTERNOON DR MCKEON WAS TURNING IT OFF. I AGAIN TRIED TO EXPLAIN TO HER THE WEANING PROCESS. SHE WANTED TO KNOW HOW IT WAS DIFFERENT THAN IN THE PAST. TOLD HER I HAVE ONLY HAD THE PATIENT SINCE YESTERDAY. SHE THEN BECAME AGITATED AND ASKED ME "YOU HAVEN'T HAD HER AT ALL IN THE PAST 30 DAYS?" I TOLD HER I HAD NOT, THAT I WAS USUALLY IN OUR CARDIAC ICU. SHE THEN TOLD ME THAT I DIDN'T KNOW ANYTHING AND SHE DIDN'T WANT TO BE TALKING TO ME ANYMORE, SHE WOULD JUST TALK TO DR MCKEON.
--- NOTE | 2016-11-29 11:00 | NUR ---
PT INCONTINENT OF STOOL. PT CLEANED UP, CISNEROS CARE PROVIDED AT THIS TIME.
--- NOTE | 2016-11-29 12:03 | NUR ---
LATHE PULLER IN TO DRAW LAB FOR TYPE AND CROSS. LET PT KNOW WAS ABOUT TO DRAW BLOOD BECAUSE DR FLEMING AND LINDA WOULD LIKE TO HAVE 1 UNIT PRBC ADMINISTERED. ASKED PT IF WAS OK FOR US TO GIVE BLOOD. SHE WAS HESITANT. MOUTHED "I DON'T KNOW". LET HER KNOW IT WAS OK TO SAY "NO" IF SHE WANTED. SHE STILL SEEMED CONFLICTED. I ASKED HER IF SHE WANTED TO WAIT UNTIL NOON VISIT WHEN HER DAUGHTER WAS HERE TO MAKE A DECISION. SHE NODDED HER HEAD UP AND DOWN TO INDICATE YES.
--- NOTE | 2016-11-29 12:12 | NUR ---
DAUGHTER JOHN AT BEDSIDE WELL SISTER AND ANOTHER FAMILY MEMBER. JOHN HAD REQUESTED DR MCKEON TO BE AT BEDSIDE, OFFICE SAYS HE IS OUT FOR THE REST OF THE DAY. LET FAMILY KNOW HE WAS NOT AVAILABLE. THEY ARE DISCUSSING WITH PATIENT WHAT FUTURE PLANS ARE FOR HER CARE AND ASKED ME TO GIVE THEM TIME ALONE WITH HER TO DISCUSS.
--- NOTE | 2016-11-29 12:37 | NUR ---
FAMILY CAME OUT TO SPEAK WITH DR LAUREANO. THEY HAVE DISCUSSED WITH PT ABOUT STOPPING VENTILATION CARE. SHE IS IN AGREEMENT. THEY ASK FOR US TO COME IN TO WITNESS. THE PATIENT WAS EXPLAINED WHAT TURNING OFF THE VENT COULD MEAN. SHE NODDED THAT SHE UNDERSTOOD. SHE REFUSED HOSPICE CARE WITH VERY AGITATED SHAKING OF HER HEAD NO. SHE WAS NOT PLEASED WITH HOSPICE CARE WITH HER LOVED ONE. SHE WANTS COMFORT CARE ONLY. DR LAUREANO AND LANRE PLATA RN WELL I ALL PRESENT WITH THIS EXCHANGE. WILL HONOR WISHES AND MAKE DNR STATUS. DR MCKEON WAS PAGED TO TRY TO NOTIFY HIM OF EVENTS. OF THIS TIME, HE HAS NOT RETURNED CALL.
--- NOTE | 2016-11-29 12:42 | NUR ---
CM NOTE: CM WAS CALLED TO ICU BY ALLIE DE DIOS TO PATIENTS ROOM. WHEN CM ARRIVED JOHN (DAUGHTER), COLEMAN (SISTER), ANOTHER FAMILY MEMBER, AND PATIENT WHERE TALKING TO DR. LAUREANO AND NEELAM RN, LANRE RN. PATIENT HAD CONFIRMED HER WISHES TO BE COMFORT CARE AND DID NOT WANT HOSPICE. DAUGHTER (JOHN) STATED SHE DID NOT NEED CM AT THIS TIME BUT WOULD CALL CM IF NEEDED.
--- NOTE | 2016-11-29 12:47 | NUR ---
DAUGHTER JOHN STILL AT BEDSIDE. PT ASKED IF SHE WANTED TO CONTINUE WITH TUBE FEEDINGS FOR NUTRITIONAL SUPPORT, SHE SHOOK HER HEAD "NO". SHE ALSO SHOOK HER HEAD "NO" IN RESPONSE TO ASKING ABOUT CONTINUATION OF IV FLUIDS. SHE DOES NOT WANT TO HAVE ANY FLUIDS OR FEEDINGS CONTINUED. SHE DID NOD HER HEAD UP AND DOWN INDICATING A "YES" RESPONSE WHEN ASKED ABOUT USING A TRACH COLLAR.
--- NOTE | 2016-11-29 12:57 | NUR ---
DAUGHTER SAVITA CALLED TO SEE WHAT WAS GOING ON, HAD GOTTEN A PHONE CALL FROM ANOTHER FAMILY MEMBER THAT THE VENTILATOR WOULD BE TURNED OFF. SHE WAS CONCERNED THAT HER MOTHER HAD BEEN COERCED AND DID NOT MAKE THE DECISION. LET HER KNOW THAT THE PHYSICIAN AND 2 RN'S WERE PRESENT AT THE TIME AND THE PATIENT INDICATED TO US THAT SHE FULLY UNDERSTOOD WHAT WE WERE DISCUSSING. SHE ASKED THAT SHE BE NOTIFIED OF PT RESPONSE TO CESSATION OF VENTILATOR CARE.
--- NOTE | 2016-11-29 13:29 | NUR ---
DAUGHTER SAVITA CALLED BACK. ASKED THAT WE PLEASE WAIT UNTIL SHE GETS HERE. SHE IS COMING FROM [place] AND WANTS TO SEE HER MOTHER BEFORE VENTILATION IS REMOVED.
--- NOTE | 2016-11-29 15:23 | NUR ---
TAL WAS CALLED TO THE ICU WAITING ROOM TO SEE PATIENTS DAUGHTER JOHN. JOHN ASKED TAL TO GET 2 SIGNATURES FROM DOCTORS TO TAKE CONTROL OF HER MOTHERS AFFAIRS AND ALSO WANTED THE SURGEON TO REMOVE THE TWO GOLD SCREWS IN HER MOTHERS TEETH. TAL EXPLAINED THAT WE COULD NOT DO THAT AND JOHN STATED "IM SICK OF THIS HOSPITAL"!! CM WENT TO [employer] MANAGER AND EXPLAINED THE SITUATION AND THEY ALSO STATED WE COULD NOT DO THOSE THINGS. CM WENT TO THE ICU WAITING ROOM AND PATIENTS NIECE BRIAN CREWS, AND SISTER COLEMAN WAS WAITING. TAL EXPLAINED TO THEM THAT IT WAS OUT OF OUR HANDS AND THE NIECE STATED SHE KNEW WE COULD NOT CARRY THROUGH WITH THOSE REQUEST AND SHE WAS TRYING TO EXPLAIN TO JOHN (PATIENTS DAUGHTER) WHY. PATIENTS DAUGHTER WAS IN THE ICU WITH HER MOTHER AT THIS TIME.
--- NOTE | 2016-11-29 15:42 | NUR ---
DAUGHTER SAVITA HAS ARRIVED. SPENT 15 OR SO MINUTES WITH PATIENT. WAS ABLE TO SPEAK WITH HER AND LOVE ON HER. TOOK SOME PICTURES WITH THE PATIENT. HIGH LIFT OPERATORHARRIET CATES WAS CALLED IN AND HAS VISITED WITH FAMILY. ANXIETY MEDICATIONS WAS REQUESTED BY PATIENT/FAMILY AND PROVIDED TO HER.
--- NOTE | 2016-11-29 15:44 | NUR ---
PT EXTUBATED AT 1544. IS BREATHING ON OWN. COUGHING. ON TRACH COLLAR. STARTED AT 50% OXYGEN AND DROPPED TO 40% WITH 98% SAT.
--- NOTE | 2016-11-29 15:51 | NUR ---
FAMILY BROUGHT BACK IN TO PATIENT ROOM. MANAGER ACQUISITION ACCOMPANIED AND SPOKE FOR A BRIEF MOMENT WITH THE FAMILY, AND THEN WITH ME AND EXCUSED HIMSELF. NO DISTRESS NOTED IN PATIENT. COUGHING HAS CALMED. RESPIRATIONS EVEN.
--- NOTE | 2016-11-29 17:20 | NUR ---
DR MCKEON CALLED TO SEE IF PATIENT HAS BEEN MOVED TO FLOOR YET. HAS NOT. HE WANTS TRACH SIZE DOWNSIZED BEFORE PT MOVES TO FLOOR.
--- NOTE | 2016-11-29 18:03 | NUR ---
DAUGHTER SAVITA AND SISTER COLEMAN AT BEDSIDE. PT HAS BEEN COUGHING. FAMILY CONCERNED. EXPLAINED SHE WILL COUGH FROM IRRITATION AND SECRETIONS FOR A WHILE.
--- NOTE | 2016-11-29 19:10 | NUR ---
SHIFT ASSESSMENT COMPLETE. PATIENT OFF VENT PER REQUEST. VSS AT THIS TIME. ALERT AND ORIENTED. ABLE TO SHAKE HEAD YES AND NO TO QUESTIONS. SEE SHIFT ASSESSMENT FOR DETAILS. CL IN REACH, WILL MONITOR.
--- NOTE | 2016-11-29 21:15 | NUR ---
PATIENT BECOMING A LITLLE LETHARGIC. STILL ABLE TO FOLLOW COMMANDS. VSS STABLE, BREATHING EVEN AND NONLABORED.
--- NOTE | 2016-11-29 23:30 | NUR ---
PATIENT BEGINNING TO HAVE LABORED RESPERATIONS AND HIGH HR. ORDERS RECEVED FOR MORPHINE AND LABATELOL. FAMILY ALSO CALLED AT THIS TIME TO REPORT CHANGE OF STATUS.
--- NOTE | 2016-11-30 01:40 | NUR ---
PATIENTS DAUGHTER JOHN CALLED TO ASK ABOUT REMOVING GOLD FROM PATIENTS TEETH. TOLD HER THAT WE ARE NOT ALLOWED TO DO THAT. SEEMED FRUSTRATED BUT SAID SHE UNDERSTANDS.
--- NOTE | 2016-11-30 01:50 | NUR ---
PATIENTS DAUGHTER, VI CALLED FOR UPDATE. LET HER KNOW THAT RR HAS SLOWED DOWN SINCE GIVING MORPHINE AND THAT I WILL CONTINUE TO MONITOR.
[2016-11-30 03:00] VITALS: BP 139/76
--- NOTE | 2016-11-30 03:00 | NUR ---
PATIENT RESTING MUCH BETTER. RR HAVE SLOWED. VSS, WILL MONITOR.
--- NOTE | 2016-11-30 06:00 | NUR ---
PATIENT HAD SMALL BM, PATIENT CLEANED, LINEN CHANGED, REPOSISTIONED FOR COMFORT.
--- NOTE | 2016-11-30 06:53 | NUR ---
DAUGHTER SAVITA CALLED FOR UPDATE, JENNA PROVIDED.
[2016-11-30 07:00] VITALS: BP 103/55
--- NOTE | 2016-11-30 07:15 | NUR ---
REPORT RECD PT CARE ASSUMED. PT IS LETHARGIC, OPENS EYES TO VOICE BUT DOES NOT ANSWER QUESTIONS. GURGLING NOTED FROM TRACH. ADVENTICIOUS LUNG SOUNDS BILAT. PT ON COMFORT CARE AT THIS TIME. SEE SHIFT ASSESSMENT FOR FURTHER DETAILS.
--- NOTE | 2016-11-30 08:20 | NUR ---
FAMILY ON PHONE. UPDATE PROVIDED AT THIS TIME.
--- NOTE | 2016-11-30 09:05 | NUR ---
PT FAMILY AT BEDSIDE. FAMILY PROVIDED WITH UPDATE AND DENIES ANY NEEDS AT THIS TIME. PT APPEARS TO PAIN RESTING COMFORABLY. WARM BLANKEY APPLIED.
[2016-11-30 11:00] VITALS: BP 100/53
--- NOTE | 2016-11-30 12:00 | NUR ---
PT REPOSITIONED, RESTING COMFORTABLY. FAMILY AT BEDSIDE FOR VISITATION.
--- NOTE | 2016-11-30 14:00 | NUR ---
PT REPOSITONED. PT NOW RESTING WITH EYES CLOSED NO DISTRESS NOTED. VSS.
[2016-11-30 15:00] VITALS: BP 127/69
--- NOTE | 2016-11-30 16:00 | NUR ---
PT REPOSITIONED PER PROTCOL. PT SEEMS MORE ALERT AT THIS TIME. PT FOLLOWS COMMANDS AND SHAKES HEAD YES AND NO TO QUESTIONS. WHEN ASKED IN PT IS IN PAIN PT SHAKES HEAD NO. VSS.
--- NOTE | 2016-11-30 18:08 | NUR ---
PT FAMILY AT BEDSIDE FOR VISITATION. PT ALERT IN BED SHAKING HEAD TO FAMILYS QUESTIONS. VSS. WILL CONTINUE TO MONITOR.
[2016-11-30 19:00] VITALS: BP 122/63
--- NOTE | 2016-11-30 19:00 | NUR ---
SHIFT ASSESSMENT COMPLETE PER FLOWSHEET. SEE FOR DETAILS. DAUGHTER AT BEDSIDE. DAUGHTER ASKED ME TO GIVE PATIENT PRN MORPHINE OR ATIVAN. ASKED PATIENT IF SHE WAS IN PAIN OR NEEDED ANXIETY MEDICATION AND SHE SHOOK HER HEAD "NO" INSTRUCTED THE DAUGHTER THAT SHE IS ALERT AND ORIENTED AND I CAN NOT GIVE THE MEDS AGAINST PATIENTS WISH. NO SIGN OF STRUGGLE OR AIR HUNGER NOTED. SHE IS RESTING COMFORTABLY. DAUGHTER STATES UNDERSTANDING. TURNED AT THIS TIME, VSS.
--- NOTE | 2016-11-30 21:10 | NUR ---
PATIENT RESTING COMFORTABLY IN BED. DENIES NEED/PAIN. RR EVEN AND NONLABORED. VSS, CL IN REACH. WILL CONTINUE TO MONITOR.
[2016-11-30 23:00] VITALS: BP 147/77
--- NOTE | 2016-11-30 23:10 | NUR ---
PATIENT LAYING IN BED WITH EYES CLOSED AT THIS TIME. RR EVEN AND NON-LABORED, NO SIGNS OF DISTRESS. 02 SAT 98%. VSS. PATIENT AWAKENS EASILY AND DENIES PAIN. WILL CONTINUE TO MONITOR.
--- NOTE | 2016-12-01 01:00 | NUR ---
PATIENT TURNED PER PROTOCOL. DENIES NEED. CL IN REACH.
--- NOTE | 2016-12-01 02:40 | NUR ---
DAUGHTER CALLED, UPDATE PROVIDED.
--- NOTE | 2016-12-01 02:49 | NUR ---
NOTICED PATIENT MOVING AROUND IN BED, STATES SHE IS UNCOMFORTABLE. REPOSISTIONED WITH ASSISST. ASKED IF SHE WOULD LIKE PAIN MEDICINE AND SHE SHOOK HER HEAD NO. VSS, WILL MONITOR.
[2016-12-01 03:00] VITALS: BP 131/78
--- NOTE | 2016-12-01 05:00 | NUR ---
PATIENT REPOSITIONED IN BED FOR COMFORT. DENIES NEED.
--- NOTE | 2016-12-01 06:00 | NUR ---
DAUGHTER AT BEDSIDE, UPDATE PROVIDED.
[2016-12-01 07:00] VITALS: BP 144/78
--- NOTE | 2016-12-01 07:56 | NUR ---
UP IN BED AT THIS TIME AWAKE WATCHING TV. NO ACUTE DISTRESS NOTED. VSS. WILL CONTINUE PLAN OF CARE.
--- NOTE | 2016-12-01 09:41 | NUR ---
INCREASED SHORTNESS OF BREATH NOTED, PT APPEARED UNCOMFORTABLE. PRN MORPHINE ADMIN FOR COMFORT ALSO AT THIS TIME SUCTIONING PROVIDED, NOTED THICK BROWN COLORED MUCUS FROM STERILE SUCTIONING THROUGH TRACH. PT WAS ABLE TO NOD HEAD WHEN ASKED IF SHE FELT BETTER. BREATHING BACK TO PT BASELINE. NO ACUTE DISTRESS NOTED. WILL CONTINUE TO OBSERVE.
[2016-12-01 11:00] VITALS: BP 144/91
--- NOTE | 2016-12-01 12:04 | NUR ---
UP IN BED AWAKE AT THIS TIME. FAMILY AT BEDSIDE. NO ACUTE DISTRESS NOTED. PT NODDED HEAD WHEN ASKING IF SHE WAS COMFORTABLE AND SHOOK HER HEAD WHEN ASKING IF SHE NEEDED ANYTHING. PT REPOSITIONED Q2H. WILL CONTINUE PLAN OF CARE.
--- NOTE | 2016-12-01 14:58 | NUR ---
BED BATH PROVIDED AT THIS TIME VIA TWO PERSON TOTAL ASSIST. TOTAL LINEN CHANGE PROVIDED. NO ACUTE DISTRESS NOTED. PT TURNED Q2H. ALSO AT THIS TIME SUCTIONING PROVIDED TO PT. SCANT THICK BROWN SECRETIONS NOTED. WILL CONTINUE PLAN OF CARE.
[2016-12-01 15:00] VITALS: BP 131/71
--- NOTE | 2016-12-01 16:25 | NUR ---
AWAKE IN BED AT THIS TIME. DENIES ANY NEEDS. NO ACUTE DISTRESS NOTED. WILL CONTINUE PLAN OF CARE.
--- NOTE | 2016-12-01 18:21 | NUR ---
FAMILY AT BEDSIDE AT THIS TIME. NO ACUTE DISTRESS NOTED. WILL CONTINUE PLAN OF CARE.
[2016-12-01 19:00] VITALS: BP 112/56
--- NOTE | 2016-12-01 19:00 | NUR ---
REPORT RECEIVED, AND ASSESSMENT COMPLETED. SEE FLOWSHEET FOR FULL DETAILS. VSS. WILL CONTINUE TO MONITOR.
--- NOTE | 2016-12-01 21:00 | NUR ---
NO CHANGES IN STATUS AT THIS TIME. VSS. WILL MONITOR
[2016-12-01 23:00] VITALS: BP 127/73
--- NOTE | 2016-12-01 23:00 | NUR ---
PT SUCTIONED FOR COMFORT. NO OTHER CHANGES AT THIS TIME.
--- NOTE | 2016-12-02 01:00 | NUR ---
PT SUCTIONED MULTIPLE TIMES. PRODUCING COPIOUS MUCUS.
--- NOTE | 2016-12-02 02:35 | NUR ---
PRN MORPHINE GIVEN FOR AIR HUNGER. NO OTHER CHANGES
[2016-12-02 03:00] VITALS: BP 165/89
--- NOTE | 2016-12-02 03:00 | NUR ---
PT SUCTIONED AND REPOSITIONED. VSS. WILL MONITOR FOR CHANGES
--- NOTE | 2016-12-02 05:00 | NUR ---
NO CHANGES IN STATUS AT THIS TIME. VSS. WILL MONITOR
--- NOTE | 2016-12-02 07:30 | NUR ---
REPORT RECD PT CARE ASSUMED. PT OPENS EYES TO VOICE, FOLLOWS COMMANDS AND SHAKES HEAD TO QUESTIONS. PT ON TRACH COLLAR AT THIS TIME. HOB ELEVATED. VSS. BLANKET APPLIED. WILL MONITOR.
--- NOTE | 2016-12-02 09:25 | NUR ---
PT REPOSTIONED AND INDICATES THAT SHE IS COMFORTABLE. VSS. WILL MONITOR.
--- NOTE | 2016-12-02 10:39 | NUR ---
NUTRITION MONITORING & EVAL CHART REVIEWED, SPOKE WITH NURSING. TUBE FEEDS CURRENTLY OFF. COMFORT CARE. ? RESUME TUBE FEEDS PULMOCARE WITH GOAL RATE 45 CC/HR. RD FOLLOWING
--- NOTE | 2016-12-02 13:00 | NUR ---
REPORT CALLED TO KAREY RN. PT TRANSPORTED TO FLOOR BY RN AND RT. PT LEFT STABLE IN ROOM.
[2016-12-02 13:13] LABS: FUNGUS MYCOLOGY CULTURE Final report (())
--- NOTE | 2016-12-02 13:33 | NUR ---
PT RECIEVED TO ROOM 2228 VIA BED FROM ICU PT AWAKE AND ALERT TRACH COLLAR NOTED TO TRACH. PEG PATENT TO PULMOCARE AT 50 CC HR. HUMIDIFIED TRACH COLAR AT 2LPM O2. LUNGS CLEAR BIALTERALLY BSA X 4 QUADS LTLSC NOTED SALINE LOCKED. DR MCKEON IN ROOM TRACH CHANGED TO FENESTRATED SHILEY SIZE 6 OBRATOR AND NON FENSTRATED AT BEDSIDE.
--- NOTE | 2016-12-02 14:47 | NUR ---
Rehab referral received and chart reviewed. Ms. Zepeda has a rehab diagnosis and will be a good candidate when she is able to ambulate a few feet. Rehab will continue to follow her progress with PT. Thank you for this referral! Page Silver DRY CELL BATTERY ASSEMBLER/[facility]
--- NOTE | 2016-12-02 15:00 | NUR ---
PT GIVEN MORPHINE AND ATIVAN FOR AIRHUNGER AND ANXIETY. TOLERATED WELL. PT AWAKE AND ALERT AFTER 5 MIN PT MUCH CALMER WITH SLOWER RESPIRATORY RATE.
[2016-12-02 15:51] VITALS: BP 143/69
[2016-12-02 17:11] LABS: FUNGUS MYCOLOGY CULTURE Preliminary report (())
[2016-12-02 19:00] VITALS: BP 156/78
--- NOTE | 2016-12-02 21:10 | NUR ---
PAIENT RESTING IN BED WATCHING TV. NO SIGNS OF DISTRESS NOTED. ALERT. DENIES ANY NEEDS OR PAIN AT THIS TIME. SCHEDULED MEDS GIVEN. SHIFT ASSESSMENT COMPLETED. BED LOW. CALL LIGHT IN REACH
[2016-12-03] VITALS: BP 118/57
[2016-12-03 04:00] VITALS: BP 155/84
--- NOTE | 2016-12-03 04:31 | NUR ---
PATIENT RESTING IN BED WITH EYES CLOSED. NO VISIBLE SIGNS OF DISTRESS. BED IN LOWEST POSITION AND CALL LIGHT WITHIN REACH.
[2016-12-03 05:33] LABS: HEMATOCRIT 29.2 % (36.0-48.0); HEMOGLOBIN 9.7 g/dL (12-16); MCH 29.8 pg (26.0-34.0); MCHC 33.2 g/dL (31.0-37.0); MCV 89.8 fL (80.0-100.0); MEAN PLATELET VOLUME 10.7 fL (7.4-10.4); PLATELET COUNT 729 10x3/uL (130-400); RBC 3.25 10x6/uL (4.00-5.40); RDW 17.3 % (11.5-14.5); WBC 16.9 10x3/uL (4.8-10.8)
[2016-12-03 06:05] LABS: ANION GAP 13.4 mmol/L (8-16); CALCIUM 9.5 mg/dL (8.5-10.1); CARBON DIOXIDE 29.6 mmol/L (21.0-32.0); CREATININE - SERUM 0.8 mg/dL (0.6-1.3)
--- NOTE | 2016-12-03 07:20 | NUR ---
ASSESSMENT PER FLOW SHEET.PT WITHOUT DISTRESS.TRACH COLLAR IN PLACE WITH 02 AT 11 LITERS.PT WITHOUT DISTRESS.REPOSITIONED TO RIGHT SIDE WITH HOB AT 45 DEGREES.
[2016-12-03 07:26] LABS: FUNGUS MYCOLOGY CULTURE Final report (())
[2016-12-03 08:10] VITALS: BP 155/84
--- NOTE | 2016-12-03 10:49 | NUR ---
DAUGHTER AT BEDSIDE.ORAL CARE AND PT REPOSITIONED.FAMILY INSTRUCTED NOT TO GIVE PT NOTHING BY MOUTH,RE...INCREASED ASPIRATION RISK.
[2016-12-03 11:41] VITALS: BP 159/79
[2016-12-03 16:41] VITALS: BP 171/91
--- NOTE | 2016-12-03 19:37 | NUR ---
REMAINS WITHOUT CHANGE,WITHOUT NEEDS.CONRT PLAN OF CARE
[2016-12-03 20:46] VITALS: BP 160/87
[2016-12-04 04:00] VITALS: BP 155/84
--- NOTE | 2016-12-04 07:10 | NUR ---
REPORT RECEIVED FROM KAIAWHINA NURSE. CALL LIGHT IN REACH.
--- NOTE | 2016-12-04 08:03 | NUR ---
RESIDUAL CHECK PER STUDENT NURSE WITH 0 CC RETURN.
[2016-12-04 08:41] VITALS: BP 153/85
--- NOTE | 2016-12-04 09:35 | NUR ---
AMK MDS ADMINISTERED PER STUDENT NURSE. CALL LIGHT IN REACH.
--- NOTE | 2016-12-04 11:20 | NUR ---
ASSESSMENT COMPLETED. SCDs TO BLE. BED ALARM ON. CALL LIGHT IN REACH. WILL CONTINUE WITH PLAN OF CARE.
--- NOTE | 2016-12-04 13:55 | NUR ---
5 CC ON FEEDING TUBE RESIDUAL CHECK.
[2016-12-04 13:58] VITALS: BP 132/66; BP 96/49
[2016-12-04] MEDS ORDERED: ELIQUIS2.5 MG PEG (14:37)
[2016-12-04] MEDS ORDERED: IPRAT-ALBUT 0.5-3 ML UPD (14:38)
[2016-12-04] MEDS ORDERED: ACETAMINOPHEN325 MG PO (14:38)
[2016-12-04] MEDS ORDERED: LOPRESSOR25 MG PO (14:38)
[2016-12-04] MEDS ORDERED: ASPIRIN81 MG PO (14:38)
[2016-12-04] MEDS ORDERED: ATIVAN2 MG/ML IV (14:38)
--- NOTE | 2016-12-04 14:59 | NUR ---
DR. MCKEON IN ROOM TO SEE PATIENT.
--- NOTE | 2016-12-04 16:01 | NUR ---
IV SITED TO LEFT WRIST WITH 22 GA X1 STICK.
--- NOTE | 2016-12-04 16:49 | NUR ---
LEFT TLSC DCD PER MD ORDER VIA STERILE TECHNIQUE, TIP INTACT, PRESSURE DRESSING APPLIED TO PUNCTURE SITE. PATIENT TOLERATED WELL. BED LOW CL IN REACH.
[2016-12-04 17:09] VITALS: BP 124/56
--- NOTE | 2016-12-04 18:30 | NUR ---
TRACH SUCTIONED. NO NEW CHANGES IN INITIAL ASSESSMENT. CALL LIGHT IN REACH. SCDs TO BLE. BED ALARM ON. WILL CONTINUE WITH PLAN OF CARE.
[2016-12-04 20:00] VITALS: BP 154/80
--- NOTE | 2016-12-04 20:41 | NUR ---
AWAKE,ALERT,. NO DISTRESS NOTED. 02 @ 50% TRACH COLLAR.PULMOCARE INFUSING AT 45 CC/HR VIA PEG. SL TO LEFT HAND INTACT WIHTOUT REDNESS OR EDEMA NOTED. CISNEROS PATENT AND DRAINING KINDRA URINE.SCDS ON.
[2016-12-05] VITALS: BP 166/89
--- NOTE | 2016-12-05 02:30 | NUR ---
TURNED AND POSITIONED. NO DISTRESS NOTED
[2016-12-05 04:00] VITALS: BP 146/74
--- NOTE | 2016-12-05 04:30 | NUR ---
PT IS AWAKE WITH SALES RECRUITER AT THE BEDSIDE TO DRAW LABS. SHE REMAINS ON THE FIRST STEP AIR MATTRESS. THERE IS A TUBE FEEDING INFUSING ORDERED AND THE HOB IS AT 30 DEGREES. THE BED IS LOW, RAILS UP X'S 2 WITH THE CALL LIGHT AT HAND.
[2016-12-05 05:39] LABS: BASOPHILS 0.2 % (0.0-2.0); EOSINOPHILS 2.5 % (0-7); HEMOGLOBIN 9.8 g/dL (12-16); IMMATURE GRANULOCYTES 0.5 % (0-5); LYMPHOCYTES 9.9 % (15-50); MCH 29.3 pg (26.0-34.0); MCHC 31.6 g/dL (31.0-37.0); MCV 92.5 fL (80.0-100.0); MEAN PLATELET VOLUME 11.4 fL (7.4-10.4); MONOCYTES 13.2 % (2-11); NEUTROPHILS 73.7 % (40-80); PLATELET COUNT 786 10x3/uL (130-400); RBC 3.35 10x6/uL (4.00-5.40); RDW 17.7 % (11.5-14.5); WBC 19.5 10x3/uL (4.8-10.8)
--- NOTE | 2016-12-05 05:45 | NUR ---
POSITIONED FOR COMFROT. NO CHANGE IN ASSESSMENT.
[2016-12-05 06:10] LABS: CALC OSMOLALITY 287 mosm/kg (275-300); CALCIUM 9.5 mg/dL (8.5-10.1); CARBON DIOXIDE 29.7 mmol/L (21.0-32.0); CHLORIDE - SERUM 102 mmol/L (98-107); CREATININE - SERUM 0.6 mg/dL (0.6-1.3); GLUCOSE 111 mg/dL (74-106); PRE-ALBUMIN 18.9 mg/dL (18.0-35.7); SODIUM 142 mmol/L (136-145); UREA NITROGEN 23 mg/dL (7-18); eGFR NON AFRICAN AMERICAN > 90 mL/min (90-120)
--- NOTE | 2016-12-05 07:50 | NUR ---
ALERT, DENIES NEEDS, CALL LIGHT IN REACH, BED LOWEST POSITION, ASSESSMENT COMPLETE, WILL CONTINUE TO MONITOR
[2016-12-05 07:57] VITALS: BP 130/62
--- NOTE | 2016-12-05 08:15 | NUR ---
PT IN BED RESP EVEN AND NONLABORED PT DENIES NEEDS AT THIS TIME SRX2 CALL LIGHT WITHIN REACH WILL CONTINUE TO MONITOR
--- NOTE | 2016-12-05 11:11 | NUR ---
CM REASSESSMENT NOTE: PATIENT IS DISCHARGING TODAY TO [facility] BY AMBULANCE TO A SKILLED BED. FAMILY AWARE
--- NOTE | 2016-12-05 16:10 | NUR ---
REPORT CALLED TO [facility], DISCHARGE PAPER AND INSTRUCTIONS GIVEN TO PT AND SISTER, QUESTIONS ANSWERED, IV REMOVED TIP INTACT, DISCHARGED PER STRETCHER WITH AMBULANCE PERSONEL,
[2016-12-06] MEDS ORDERED: ASCORBIC ACID500 MG PO (22:41)
[2016-12-06] MEDS ORDERED: VIC-FORTE CAPSUL1 MG PO (22:42)
[2016-12-06] MEDS ORDERED: ZINC-220220 MG PO (22:43)
[2016-12-06] MEDS ORDERED: ARGININE1 GM PO (22:44)
== END 2016-12-05 16:30 | DRG 3 ==
LOC: D.MS 05:32 → D.ICU 05:32 → D.SDCHOLD 05:32 → D.ICU 19:15 → D.MS 12-02 12:57
PROVIDERS: Anesthesiology; Internal Medicine Pulmonary Disease; ADMIT Surgery
PROC: 0DJ08ZZ Inspection of Upper Intestinal Tract, Via Natural or Artificial Opening Endoscopic (ICD-10-PCS; 2016-10-30)
PROC: 0B113F4 Bypass Trachea to Cutaneous with Tracheostomy Device, Percutaneous Approach (ICD-10-PCS; 2016-10-30)
PROC: 0W9B30Z Drainage of Left Pleural Cavity with Drainage Device, Percutaneous Approach (ICD-10-PCS; 2016-10-30)
PROC: 5A1945Z Respiratory Ventilation, 24-96 Consecutive Hours (ICD-10-PCS; 2016-10-30)
PROC: 0D844ZZ Division of Esophagogastric Junction, Percutaneous Endoscopic Approach (ICD-10-PCS; principal; 2016-10-30 13:00)
PROC: 0DV44ZZ Restriction of Esophagogastric Junction, Percutaneous Endoscopic Approach (ICD-10-PCS; 2016-10-30 13:00)
PROC: 0BH17EZ Insertion of Endotracheal Airway into Trachea, Via Natural or Artificial Opening (ICD-10-PCS; 2016-11-01)
PROC: 0BB38ZX Excision of Right Main Bronchus, Via Natural or Artificial Opening Endoscopic, Diagnostic (ICD-10-PCS; 2016-11-01)
PROC: 0B9B8ZX Drainage of Left Lower Lobe Bronchus, Via Natural or Artificial Opening Endoscopic, Diagnostic (ICD-10-PCS; 2016-11-01)
PROC: 5A1955Z Respiratory Ventilation, Greater than 96 Consecutive Hours (ICD-10-PCS; 2016-11-01)
PROC: 0BB38ZX Excision of Right Main Bronchus, Via Natural or Artificial Opening Endoscopic, Diagnostic (ICD-10-PCS; 2016-11-05)
PROC: 05PYX3Z Removal of Infusion Device from Upper Vein, External Approach (ICD-10-PCS; 2016-11-12)
PROC: 02HV33Z Insertion of Infusion Device into Superior Vena Cava, Percutaneous Approach (ICD-10-PCS; 2016-11-12)
PROC: 0DH64UZ Insertion of Feeding Device into Stomach, Percutaneous Endoscopic Approach (ICD-10-PCS; 2016-11-18)
DX: K22.0 Achalasia of cardia (principal); J95.822 Acute and chronic postprocedural respiratory failure; J18.9 Pneumonia, unspecified organism; E46 Unspecified protein-calorie malnutrition; D62 Acute posthemorrhagic anemia; J98.11 Atelectasis; J93.9 Pneumothorax, unspecified; R22.2 Localized swelling, mass and lump, trunk; Z68.29 Body mass index [BMI] 29.0-29.9, adult; R13.10 Dysphagia, unspecified; Y95 Nosocomial condition; R19.7 Diarrhea, unspecified; I27.2 Other secondary pulmonary hypertension; D73.5 Infarction of spleen; D47.3 Essential (hemorrhagic) thrombocythemia; K76.89 Other specified diseases of liver; R50.82 Postprocedural fever

== ENCOUNTER 2016-12-06 20:56 | Inpatient (IN) | payer MEDICARE, BC ==
[~2016-12-06] VITALS: Ht 165.1 cm; Wt 57.2 kg
[~2016-12-06 20:56] MED LIST changes: +ACETAMINOPHEN325 MG PO; +ASPIRIN81 MG PO; +ATIVAN2 MG/ML IV; +ELIQUIS2.5 MG PEG; +IPRAT-ALBUT 0.5-3 ML UPD; +LOPRESSOR25 MG PO
--- NOTE | 2016-12-06 22:00 | NUR ---
REC VIA [facility]ET FROM [facility] ER. RESIDENT OF [place]. SHE IS NON-VERBAL. HAS A TRACH WITH T-COLLAR 02 AT 40%. IV IN L HAND WITH LEVAQUIN INFUSING STARTED AT [facility]. UPPER LEFT ABD PEG TUBE NOTED. A DRSG ON LEFT BUTTOCK NOTED. ELEVATED HOB AT 35 DEGREES. ORIENTED TO CALL LIGHT. WILL CALL DR MCKEON FOR ORDERS.
--- NOTE | 2016-12-06 22:30 | NUR ---
REQUESTED A SNACK. GAVE MIMI CRACKERS AND APPLESAUCE. HIS IS PRESENT IN ROOM. VOICED CONCERNS ABOUT HIS CONFUSION. DISCUSSED WITH HER THE MD'S CONSULTED AND TREATMENT'S ORDERED. STATED SHE COULD NOT STAY THE NIGHT. LEFT DOOR OPEN TO MONITOR CLOSELY.
--- NOTE | 2016-12-06 22:30 | NUR ---
CALLED DR MCKEON FOR ORDERS. STATED "I WILL TAKE CARE OF IT". ASSISTED INSULATION CUPOLA OPERATOR WITH CLEANING PATIENT FOR INCONTINENCE OF STOOL. IT WAS VERY DARK AND PASTY.
[2016-12-06] MEDS ORDERED: ASCORBIC ACID500 MG PO (22:41)
[2016-12-06] MEDS ORDERED: VIC-FORTE CAPSUL1 MG PO (22:42)
[2016-12-06] MEDS ORDERED: ZINC-220220 MG PO (22:43)
[2016-12-06] MEDS ORDERED: ARGININE1 GM PO (22:44)
[2016-12-07] VITALS (10 sets, daily range): BP systolic 111–155; BP diastolic 57–80; Ht 165.1 cm; Wt 57.2 kg
--- NOTE | 2016-12-07 00:30 | NUR ---
PLACE SCD'S PER ORDER. CALLED [facility] FOR PULMOCARE FOR TUBE FEED.
--- NOTE | 2016-12-07 00:38 | NUR ---
SET UP SUCTION CANISTER FOR REST TECH TO DO DEEP SUCTION PER ORDER.
--- NOTE | 2016-12-07 01:40 | NUR ---
SUPERINTENDENT MARINE PRESENT IN ROOM GIVING BATH. REQUESTED ANOTHER SNACK.
--- NOTE | 2016-12-07 04:47 | NUR ---
STARTED TUBE FEED WITH PULMOCARE AT 45CC/HR AND FLUSH SET AT 50CC/6HR.
[2016-12-07 05:11] LABS: BASOPHILS 0.8 % (0.0-2.0); EOSINOPHILS 5.3 % (0-7); HEMATOCRIT 31.8 % (36.0-48.0); HEMOGLOBIN 9.9 g/dL (12-16); IMMATURE GRANULOCYTES 0.5 % (0-5); LYMPHOCYTES 10.7 % (15-50); MCH 28.8 pg (26.0-34.0); MCHC 31.1 g/dL (31.0-37.0); MCV 92.4 fL (80.0-100.0); MONOCYTES 9.2 % (2-11); NEUTROPHILS 73.5 % (40-80); PLATELET COUNT 755 10x3/uL (130-400); RBC 3.44 10x6/uL (4.00-5.40); RDW 17.7 % (11.5-14.5); WBC 16.4 10x3/uL (4.8-10.8)
[2016-12-07 05:46] LABS: CALC OSMOLALITY 283 mosm/kg (275-300); CALCIUM 9.1 mg/dL (8.5-10.1); CARBON DIOXIDE 30.5 mmol/L (21.0-32.0); CHLORIDE - SERUM 101 mmol/L (98-107); CREATININE - SERUM 0.7 mg/dL (0.6-1.3); GLUCOSE 96 mg/dL (74-106); SODIUM 140 mmol/L (136-145); THYROID STIMULATING HORMONE 4.33 uIU/mL (0.36-3.74); UREA NITROGEN 26 mg/dL (7-18); eGFR NON AFRICAN AMERICAN 85 mL/min (90-120)
--- NOTE | 2016-12-07 07:15 | NUR ---
RECEIVED REPORT. ASSUMED CARE OF PATIENT. CALL LIGHT WITHIN REACH. PATIENT SITTING UP IN BED WITH EYES OPEN. ABLE TO ANSWER YES/NO QUESTIONS. LOWERED BED FOR SAFETY. DENIES NEEDS. RESP EVEN AND UNLABORED. TRACH PATENT. AEROSOL COLLAR @ 40%. NO DISTRESS.
--- NOTE | 2016-12-07 08:58 | NUR ---
K+ SUPPLEMENT ADMINISTER PER ELECTROLYTE PROTOCOL AT THIS TIME. NO DISTRESS.
--- NOTE | 2016-12-07 14:36 | NUR ---
DRESSING CHANGE TO LEFT BUTTOCK - LEFT BUTTOCK WITH APPROXIMATE AREA OF SCAR TISSUE APPROX 5X5 WITH 3 SMALL AREAS NOTED TO BE OPEN, APPROX 1X1 IN SIZE, EACH. CLEANSE WITH WOUND CLEANSER. PAT DRY. SKIN PROTECTANT APPLIED TO PERIWOUND. DRESSING APPLIED. PATIENT UNAWARE THAT SHE HAD AREA TO LEFT BUTTOCK. TOLERATED DRESSING CHANGE WELL. INCONTINET CARE PROVIDED AT THIS TIME. NO DISTRESS.
--- NOTE | 2016-12-07 19:30 | NUR ---
RESP TECH PRESENT IN ROOM CLEANING TRACH.
--- NOTE | 2016-12-07 21:45 | NUR ---
STATED SHE WAS WET. CHECKED CISNEROS AND NOTED NO LEAKS. SMALL AMT OF FECAL SMEAR ON BUTTOCKS, CLEANED THAT OFF. NO OTHER NEEDS VOICED.
[2016-12-08 05:09] LABS: BASOPHILS 0.6 % (0.0-2.0); EOSINOPHILS 7.7 % (0-7); HEMATOCRIT 31.2 % (36.0-48.0); HEMOGLOBIN 10.2 g/dL (12-16); IMMATURE GRANULOCYTES 0.3 % (0-5); LYMPHOCYTES 11.6 % (15-50); MCH 30.2 pg (26.0-34.0); MCHC 32.7 g/dL (31.0-37.0); MCV 92.3 fL (80.0-100.0); MEAN PLATELET VOLUME 11.5 fL (7.4-10.4); MONOCYTES 11.8 % (2-11); PLATELET COUNT 773 10x3/uL (130-400); RBC 3.38 10x6/uL (4.00-5.40)
[2016-12-08 05:43] LABS: ALBUMIN 3.2 g/dL (3.4-5.0); ALKALINE PHOSPHATASE 91 U/L (46-116); ALT (SGPT) 49 U/L (10-68); CALC OSMOLALITY 276 mosm/kg (275-300); CALCIUM 9.4 mg/dL (8.5-10.1); CARBON DIOXIDE 28.6 mmol/L (21.0-32.0); CHLORIDE - SERUM 99 mmol/L (98-107); CREATININE - SERUM 0.6 mg/dL (0.6-1.3); GLUCOSE 111 mg/dL (74-106); MAGNESIUM - SERUM 2.2 mg/dL (1.8-2.4); PHOSPHOROUS 3.5 mg/dL (2.5-4.9); POTASSIUM - SERUM 3.7 mmol/L (3.5-5.1); PROTEIN - SERUM 7.2 g/dL (6.4-8.2); SODIUM 136 mmol/L (136-145); UREA NITROGEN 25 mg/dL (7-18); eGFR NON AFRICAN AMERICAN > 90 mL/min (90-120)
--- NOTE | 2016-12-08 07:05 | NUR ---
RECEIVED REPORT. ASSUMED CARE OF PATIENT. SITTING UP IN BED, TUBE FEEDING INFUSING ORDERED. RESP EVEN AND UNLABORD. DENIES NEEDING SUCTION VIA TRACH. TRACH #8 WITH AEROSOL AT 40%. CALL LIGHT WITHIN REACH. NO DISTRESS.
--- NOTE | 2016-12-08 10:30 | NUR ---
OOB SITTING TO CHAIR. NO DISTRESS. DAUGHTER AT BEDSIDE. CALL LIGHT WITHIN REACH.
[2016-12-08 11:56] VITALS: BP 152/64
[2016-12-08 15:13] VITALS: BP 144/69
--- NOTE | 2016-12-08 15:30 | NUR ---
SUCTION PATIENT AT THIS TIME PER HER REQUEST. CALL LIGHT PLACED WITHIN REACH. NO DISTRESS.
--- NOTE | 2016-12-08 17:30 | NUR ---
ASSISTED PATIENT ON BEDPAN. NO DISTRESS. CALL LIGHT WITHIN REACH.
--- NOTE | 2016-12-08 19:51 | NUR ---
RECEIVED IN BEDROOM. LAYING IN BED WITH EYES CLOSED. RESPONDS TO TOUCH. TRACH INTACT. IN SIGNS OF DISTRESS. CALL LIGHT IN REACH. ENCOURAGE TO EXPRESS NEEDS.
[2016-12-08 20:00] VITALS: BP 130/71
--- NOTE | 2016-12-08 22:53 | NUR ---
RESTING IN BED EYES CLOSED. NO SIGNS OF DISTRESS. BED ALARM ON. CALL LIGHT IN REACH
[2016-12-09] VITALS: BP 152/77
--- NOTE | 2016-12-09 00:17 | NUR ---
FULL BED CHANGE. WOUND ON BOTTOM CLEAN AND OPEN TO AIR AT THIS TIME. ENCOURAGE TO EXPRESS NEEDS.
--- NOTE | 2016-12-09 02:19 | NUR ---
RESTING IN BED WITH EYES CLOSED. NO SIGNS OF DISTRESS. CALL LIGHT IN REACH
[2016-12-09 04:00] VITALS: BP 153/70
[2016-12-09 05:33] LABS: BASOPHILS 0.2 % (0.0-2.0); EOSINOPHILS 7.7 % (0-7); IMMATURE GRANULOCYTES 0.4 % (0-5); LYMPHOCYTES 16.9 % (15-50); MCH 28.9 pg (26.0-34.0); MCHC 31.3 g/dL (31.0-37.0); MCV 92.5 fL (80.0-100.0); MEAN PLATELET VOLUME 11.7 fL (7.4-10.4); MONOCYTES 10.7 % (2-11); NEUTROPHILS 64.1 % (40-80); PLATELET COUNT 802 10x3/uL (130-400); RBC 3.46 10x6/uL (4.00-5.40); WBC 16.9 10x3/uL (4.8-10.8)
[2016-12-09 06:11] LABS: CALC OSMOLALITY 274 mosm/kg (275-300); CALCIUM 9.7 mg/dL (8.5-10.1); CARBON DIOXIDE 29.4 mmol/L (21.0-32.0); CHLORIDE - SERUM 99 mmol/L (98-107); CREATININE - SERUM 0.6 mg/dL (0.6-1.3); GLUCOSE 111 mg/dL (74-106); POTASSIUM - SERUM 3.8 mmol/L (3.5-5.1); SODIUM 136 mmol/L (136-145); eGFR NON AFRICAN AMERICAN > 90 mL/min (90-120)
[2016-12-09 06:13] LABS: UREA NITROGEN 18 mg/dL (7-18)
--- NOTE | 2016-12-09 07:25 | NUR ---
PT SITTING UP IN BED SLEEPING NO S/S DISTRESS NOTED WILL CONT TO MONITOR
[2016-12-09 07:34] LABS: MAGNESIUM - SERUM 2.1 mg/dL (1.8-2.4); PHOSPHOROUS 3.5 mg/dL (2.5-4.9)
[2016-12-09 08:43] VITALS: BP 155/77
--- NOTE | 2016-12-09 10:44 | NUR ---
WOUND CARE: PT HAS STAGE 2 PRESSURE INJURY TO LEFT BUTTOCK 2CM X 2CM. SKIN PROTECTANT/BARRIER IS BEING APPLIED. PT IS CURRENTLY POSITIONED ON HER RIGHT SIDE. F/C INTACT WOUND CARE CONTINUES TO MONITOR.
--- NOTE | 2016-12-09 10:47 | NUR ---
Patient Name: RYLIE LUJAN Admission Status: Elective Accout number: [id number] Admission Date: 12-06-2016 : 1935 Admission Diagnosis: Attending: JENNY Current LOS: 3 Anticipated DC Date: 12-09-2016 Planned Disposition: Prison Facility Primary Insurance: MEDICARE A & B PLANNED EXTERNAL PROVIDER: [facility] Discharge Planning Comments: * Is the patient Alert and Oriented? Yes 0 * How many steps to enter\exit or inside your home? NONE 0 * PCP DR. RONAK BEDOYA 0 * Pharmacy [facility] 0 * Preadmission Environment Prison Facility 0 * Facility Name [facility] 0 * ADLs Total Dependent 0 * Equipment Other 0 * Other Equipment ALL EQUIPMENT PROVIDED BY CUSTODIAL FACILITY 0 * List name and contact numbers for known caregivers / representatives who currently or will assist patient after discharge: GAYATHRI PLASENCIA, [place] [phone] JENNIFER GAMEZ, 0 * Community resources currently utilized None 0 * Please name any agencies selected above. NONE 0 * Additional services required to return to the preadmission environment? No 0 * Can the patient safely return to the preadmission environment? Yes 0 * Has this patient been hospitalized within the prior 30 days at any hospital? Yes 0 CM RECEIVED DISCHARGE ORDER, MET WITH PT IN ROOM. PT WITH TRACH, CM UNABLE TO READ PT'S LIPS. PT ATTEMPTED TO COMMUNICATE IN WRITING BUT WAS UNABLE. CM ASKED YES AND NO QUESTIONS. PT WAS AT [facility] FOR REHAB, HAS NOT BEEN THERE LONG FOR REHAB, WILL RETURN THERE TODAY AT DISCHARGE. PT WOULD LIKE CM TO CALL HER DAUGHTERS. CM CALLED JOHN CARTER, AND [phone], LEFT MESSAGE REQUESTING RETURN CALL. CM CALLED JENNIFER SALAZAR, , LEFT MESSAGE REQUESTING RETURN CALL. CM NOTIFIED PT IN ROOM. CM CALLED [place] [phone], , DID NOT RECEIVE ANSWER. CM CALLED [facility], CLINICIAL LIAISON FOR [facility], , NOTIFIED OF PT'S DISCHARGE ORDER. [facility] WILL ENSURE THAT FACILITY CAN ACCEPT PT BACK TODAY AND CALL [facility] LOWE. CM FAXED REFERRAL AND DISCHARGE INFORMATION TO [facility] AT [phone]. WHEN NOTIFIED THAT FACILITY CAN ACCEPT PT, NURSE REPORT TO BE CALLED TO [facility], . PT TO TRANSPORT VIA AMBULANCE. Kiln Door Builder: Deshawn Carroll
--- NOTE | 2016-12-09 11:57 | NUR ---
PT SITTING UP IN BED DENIES NEEDS FAMILY MEMBER AT BEDSIDE WILL CONT TO MONITOR
[2016-12-09 13:14] VITALS: BP 157/63
--- NOTE | 2016-12-09 13:28 | NUR ---
Nutrition follow-up: Pulmocare now infusing @ 45 ml/hr with 50 ml H2O flush Q 6 hours Labs reviewed Wt: 126# Pt with trach Pt currently tolerating TF @ 45 ml/hr which is providin kcal 68 gm protein 850 ml free H2O RDN following.
--- NOTE | 2016-12-09 15:48 | NUR ---
Patient Name: RYLIE LUJAN Encounter No: [id number] : 1935 Primary Insurance: MEDICARE A & B Anticipated DC Date: 12-09-2016 Planned Disposition: Fdc Facility External Planned Provider: [facility], MEDICARE REHAB BED DCP follow-up note: CM RECEIVED CALL FROM [facility] CAN ACCEPT PT, NURSE REPORT TO BE CALLED TO [facility], . PT TO TRANSPORT VIA AMBULANCE. Director Underwriter Sales: Deshawn Carroll
--- NOTE | 2016-12-09 16:25 | NUR ---
WAITING ON SPEECH EVAL BEFORE PT DC HOME. ALREADY SPOKE TO DIONI EARLIER- HE SAID HE WOULD BE UP SOON
--- NOTE | 2016-12-09 16:54 | NUR ---
SPEECH THERAPY HERE TO EVAL PT. WAITING ON EVAL TO BE COMPLETE THEN WILL DC PT
--- NOTE | 2016-12-09 17:12 | NUR ---
DC PIV IN LEFT THUMB WITH CATH TIP INTACT. PT READY TO DC HOME. DIONI SAID PUREE FOODS WITH THIN LIQUIDS. CALLED [facility] AND ASKED FOR AMBULANCE TO SEND PT BACK TO [facility]. CALLED REPORT TO [facility].
[2016-12-09 17:16] VITALS: BP 180/86
--- NOTE | 2016-12-09 18:32 | NUR ---
[facility] HERE TO TAKE PT BACK TO [place]. PT SISTER TOOK ALL OF HER BELONGINGS TO THE [facility].
== END 2016-12-09 18:33 | DRG 189 ==
LOC: D.M2 20:56
PROVIDERS: Emergency Medicine; ADMIT Surgery
DX: J95.822 Acute and chronic postprocedural respiratory failure (principal); J98.11 Atelectasis; Y83.9 Surgical procedure, unspecified as the cause of abnormal reaction of the patient, or of later complication, without mention of misadventure at the time of the procedure; E87.6 Hypokalemia; E03.9 Hypothyroidism, unspecified; D47.3 Essential (hemorrhagic) thrombocythemia; T17.990A Other foreign object in respiratory tract, part unspecified in causing asphyxiation, initial encounter; X58.XXXA Exposure to other specified factors, initial encounter; D64.9 Anemia, unspecified; I10 Essential (primary) hypertension; Z93.0 Tracheostomy status; I27.2 Other secondary pulmonary hypertension

== ENCOUNTER 2016-12-26 12:44 | Inpatient (IN) | payer MEDICARE, BC ==
[~2016-12-26] VITALS: Ht 165.1 cm; Wt 46.9 kg
[~2016-12-26 12:44] MED LIST changes: +ARGININE1 GM PO; +ASCORBIC ACID500 MG PO; +VIC-FORTE CAPSUL1 MG PO; +ZINC-220220 MG PO
[2016-12-26 13:45] LABS: ALKALINE PHOSPHATASE 111 U/L (46-116); ALT (SGPT) 36 U/L (10-68); BASOPHILS 0.2 % (0-2); BILIRUBIN - TOTAL 0.27 mg/dL (0.2-1.3); CALC OSMOLALITY 267 mosm/kg (275-300); CALCIUM 9.3 mg/dL (8.5-10.1); CARBON DIOXIDE 28.4 mmol/L (21.0-32.0); CHLORIDE - SERUM 97 mmol/L (98-107); CREATININE - SERUM 0.6 mg/dL (0.6-1.3); EOSINOPHILS 2.2 % (0-7); GLUCOSE 122 mg/dL (74-106); HEMATOCRIT 22.4 % (36.0-48.0); IMMATURE GRANULOCYTES 0.4 % (0-5); LYMPHOCYTES 31.5 % (15-50); MCH 30.2 pg (26.0-34.0); MCHC 31.7 g/dL (31.0-37.0); MCV 95.3 fL (80.0-100.0); MEAN PLATELET VOLUME 10.2 fL (7.4-10.4); NEUTROPHILS 55.7 % (40-80); PLATELET COUNT 745 10x3/uL (130-400); POTASSIUM - SERUM 3.9 mmol/L (3.5-5.1); PROTEIN - SERUM 6.7 g/dL (6.4-8.2); RBC 2.35 10x6/uL (4.00-5.40); RDW 19.1 % (11.5-14.5); SODIUM 131 mmol/L (136-145); UREA NITROGEN 25 mg/dL (7-18); WBC 16.8 10x3/uL (4.8-10.8); eGFR NON AFRICAN AMERICAN > 90 mL/min (90-120)
[2016-12-26 13:54] LABS: HEMOGLOBIN 7.1 g/dL (12-16)
[2016-12-26 14:58] LABS: APPEARANCE CLOUDY (CLEAR); BILIRUBIN NEGATIVE (NEGATIVE); COLOR YELLOW (YELLOW); GLUCOSE NEGATIVE (NEGATIVE); KETONE NEGATIVE (NEGATIVE); LEUKOCYTE ESTERASE 2+ (NEGATIVE); NITRITE POSITIVE (NEGATIVE); PROTEIN 1+ mg/dL (NEGATIVE); SPECIFIC GRAVITY 1.015 (1.005-1.020); UROBILINOGEN NORMAL (NORMAL)
[2016-12-26 14:59] LABS: BACTERIA MANY /hpf (NONE SEEN); EPITHELIAL CELLS 0-5 /hpf (0-5)
[2016-12-26 15:00] LABS: CALCIUM OXALATE CRYSTALS 0-5 /hpf (NONE SEEN)
[2016-12-26] MEDS ORDERED: PROTONIX FOR OR40 MG PT (18:45)
[2016-12-26] MEDS ORDERED: OMNICEF300 MG PO (18:46)
[2016-12-26 19:00] VITALS: BP 118/49
--- NOTE | 2016-12-26 19:12 | NUR ---
1830 PT RECIEVED FROM THE ER VIA KULWINDER.. PT IS AAWAKE AND ALERT ABLE TO COMMUNICATE NEEDS.. THERE IS TRACH IN PLACE AND TRACH COLLAR O2.. PEG TUBE IS CLAMPED CISNEROS CATH IN PLACE FROM ASSISTED.. DR MENCHACA IS CALLED AND NOTIFIED OF PTS ARRIVAL TO THE ICU.. ORDERS RECIEVED.. DAUGHTER IS WITH PT AND HAS PRODUCED POA PAPERS .. COPIES MADE AND PLACED ON THE CHART.. DR ORDOÑEZ CALLED AND INFORMED OF CONSULT ..
[2016-12-26 19:44] VITALS: BP 118/49; BMI 21.3
[2016-12-26 20:00] VITALS: BP 115/50
[2016-12-26 21:00] VITALS: BP 108/48
[2016-12-26 22:00] VITALS: BP 99/49
[2016-12-26 23:00] VITALS: BP 117/59
--- NOTE | 2016-12-26 23:27 | NUR ---
REASSESSMENT COMPLETE PER FLOW SHEET. VSS. NO NEW CHANGES. PT SLEEPING COMFORTABLY. WILL CONTINUE TO MONITOR.
[2016-12-27] VITALS (25 sets, daily range): BP systolic 99–124; BP diastolic 49–96; Ht 165.1 cm; Wt 46.9 kg
[2016-12-27 01:43] LABS: HEMATOCRIT 28.9 % (36.0-48.0); HEMOGLOBIN 9.6 g/dL (12-16)
--- NOTE | 2016-12-27 03:09 | NUR ---
REASSESSMENT COMPLETE PER FLOW SHEET. VSS. NO NE CHANGES. PT SLEEPING COMFORTABLY. WILL CONTINUE TO MONITOR.
--- NOTE | 2016-12-27 05:05 | NUR ---
NO NEEDS NOTED AT THIS TIME, WILL CON'T TO MONITOR
[2016-12-27 05:06] LABS: BASOPHILS 0.4 % (0-2); EOSINOPHILS 4.8 % (0-7); HEMATOCRIT 27.6 % (36.0-48.0); HEMOGLOBIN 9.4 g/dL (12-16); IMMATURE GRANULOCYTES 0.4 % (0-5); LYMPHOCYTES 34.3 % (15-50); MCH 30.8 pg (26.0-34.0); MCHC 34.1 g/dL (31.0-37.0); MONOCYTES 12.9 % (2-11); NEUTROPHILS 47.2 % (40-80); WBC 14.8 10x3/uL (4.8-10.8)
[2016-12-27 05:17] LABS: MCV 90.5 fL (80.0-100.0); PLATELET COUNT 581 10x3/uL (130-400); RBC 3.05 10x6/uL (4.00-5.40)
[2016-12-27 05:21] LABS: ALBUMIN 2.6 g/dL (3.4-5.0); ALKALINE PHOSPHATASE 95 U/L (46-116); ALT (SGPT) 31 U/L (10-68); CALC OSMOLALITY 270 mosm/kg (275-300); CALCIUM 8.6 mg/dL (8.5-10.1); CARBON DIOXIDE 26.9 mmol/L (21.0-32.0); CHLORIDE - SERUM 98 mmol/L (98-107); CREATININE - SERUM 0.5 mg/dL (0.6-1.3); GLUCOSE 99 mg/dL (74-106); MAGNESIUM - SERUM 1.9 mg/dL (1.8-2.4); PHOSPHOROUS 4.2 mg/dL (2.5-4.9); POTASSIUM - SERUM 3.7 mmol/L (3.5-5.1); PROTEIN - SERUM 5.9 g/dL (6.4-8.2); SODIUM 133 mmol/L (136-145); UREA NITROGEN 27 mg/dL (7-18); eGFR NON AFRICAN AMERICAN > 90 mL/min (90-120)
--- NOTE | 2016-12-27 11:01 | NUR ---
EGD CONCNTS SIGNED AND PROCEDURE SCHEDULED. PREOP MEDS GIVEN. MYAH GENTILE AT BS. AWAITING DR WILKINS.
--- NOTE | 2016-12-27 12:45 | NUR ---
1220-EGD COMPLETE, VSS AFEBRILE, PT AWAKE AND ALERT.
[2016-12-27 12:46] LABS: HEMATOCRIT 26.6 % (36.0-48.0); HEMOGLOBIN 8.9 g/dL (12-16)
[2016-12-27 18:37] LABS: HEMOGLOBIN 9.1 g/dL (12-16)
--- NOTE | 2016-12-27 19:10 | NUR ---
SHIFT ASSESSMENT COMPLETE, SEE FOR DETAILS. PATIENT ALERT AND ORIENTED, DENIES NEED AT THIS TIME. VSS. 2100- PATIENT TURNED FOR COMFORT, DENIES NEEDS AT THIS TIME. 2300- REASSESSMENT COMPLETE, PATIENT RESTING WELL, DENIES PAIN OR NEED. TURNED FOR COMFORT. VSS. 0100- VSS, NO S/S OF DISTRESS. WILL MONITOR.
[2016-12-27 23:58] LABS: HEMATOCRIT 25.5 % (36.0-48.0); HEMOGLOBIN 8.5 g/dL (12-16)
[2016-12-28] VITALS (14 sets, daily range): BP systolic 104–130; BP diastolic 47–74
--- NOTE | 2016-12-28 03:00 | NUR ---
REASSESSMENT COMPLETE, NO CHANGES. NO DISTRESS NOTED. VSS, WILL MONITOR.
--- NOTE | 2016-12-28 05:00 | NUR ---
COMPLETE LINEN CHANGE PERFORMED, PATIENT TOLERATED WELL AND WAS ABLE TO GIVE ASSISST. PATIENT TOLERATED WELL.
[2016-12-28 06:07] LABS: BASOPHILS 0.3 % (0-2); EOSINOPHILS 4.5 % (0-7); HEMATOCRIT 27.5 % (36.0-48.0); HEMOGLOBIN 9.2 g/dL (12-16); IMMATURE GRANULOCYTES 0.4 % (0-5); LYMPHOCYTES 31.9 % (15-50); MCH 30.7 pg (26.0-34.0); MCHC 33.5 g/dL (31.0-37.0); MCV 91.7 fL (80.0-100.0); MEAN PLATELET VOLUME 9.9 fL (7.4-10.4); MONOCYTES 12.3 % (2-11); NEUTROPHILS 50.6 % (40-80); PLATELET COUNT 601 10x3/uL (130-400); RDW 18.2 % (11.5-14.5); WBC 13.9 10x3/uL (4.8-10.8)
[2016-12-28 06:33] LABS: ALBUMIN 2.7 g/dL (3.4-5.0); ALKALINE PHOSPHATASE 106 U/L (46-116); ALT (SGPT) 32 U/L (10-68); CALC OSMOLALITY 269 mosm/kg (275-300); CHLORIDE - SERUM 101 mmol/L (98-107); CREATININE - SERUM 0.6 mg/dL (0.6-1.3); GLUCOSE 99 mg/dL (74-106); POTASSIUM - SERUM 3.7 mmol/L (3.5-5.1); PROTEIN - SERUM 6.3 g/dL (6.4-8.2); SODIUM 135 mmol/L (136-145); eGFR NON AFRICAN AMERICAN > 90 mL/min (90-120)
[2016-12-28 06:34] LABS: UREA NITROGEN 13 mg/dL (7-18)
--- NOTE | 2016-12-28 09:20 | NUR ---
DAUGHTER AT BEDSIDE. NO CURRENT C/O.
--- NOTE | 2016-12-28 09:35 | NUR ---
TUBE FEEDING TO GOAL RATE.
[2016-12-28 12:01] LABS: HEMATOCRIT 28.1 % (36.0-48.0); HEMOGLOBIN 9.4 g/dL (12-16)
[2016-12-28 17:38] LABS: HEMATOCRIT 28.4 % (36.0-48.0); HEMOGLOBIN 9.2 g/dL (12-16)
--- NOTE | 2016-12-28 18:01 | NUR ---
RECIEVED FROM ICU. PT IS ALERT AND ORIENTED. TRACK COLLAR AT 28%.PEG TUBE TO LEFT ABD WITH PUMOCARE AT 40CC HR. CISNEROS CATH PATENT TO GRAVITY BAG.IVS TO LEFT AND RIGHT CORI. ZOFRAN AT 4.7 INFUSING INTO THE RIGHT HAND. DENIES ANY NEEDS. CALL LIGHT IN REACH WITH SR UP. WILL MONITOR
--- NOTE | 2016-12-28 18:27 | NUR ---
LYING QUIETLY. NO NEEDS VOICED
--- NOTE | 2016-12-28 19:45 | NUR ---
RESUMED CARE, FAMILY AT BED SIDE, PT DENIES ANY NEEDS, BED IS LOW, SRX2, CALL LIGHT IN REACH, WILL CONTINUE CARE OF PLAN
[2016-12-29] VITALS (7 sets, daily range): BP systolic 106–130; BP diastolic 50–72
--- NOTE | 2016-12-29 00:19 | NUR ---
INSURANCE TERRITORY MANAGER AT BED SIDE TO OBTAIN VITALS. WILL CONT PLAN OF CARE.
--- NOTE | 2016-12-29 03:06 | NUR ---
ASSESSMENT COMPLETE, SEE FLOWSHEET, DAUGHTER AT BEDSIDE, CALL LIGHT IN REACH, WILL CONTINUE CARE OF PLAN
[2016-12-29 05:16] LABS: APPEARANCE CLEAR (CLEAR); BILIRUBIN NEGATIVE (NEGATIVE); COLOR YELLOW (YELLOW); GLUCOSE NEGATIVE (NEGATIVE); KETONE NEGATIVE (NEGATIVE); LEUKOCYTE ESTERASE NEGATIVE (NEGATIVE); NITRITE NEGATIVE (NEGATIVE); PROTEIN NEGATIVE (NEGATIVE); UROBILINOGEN NORMAL (NORMAL)
[2016-12-29 06:21] LABS: BASOPHILS 0.2 % (0-2); EOSINOPHILS 5.6 % (0-7); HEMATOCRIT 29.7 % (36.0-48.0); HEMOGLOBIN 9.5 g/dL (12-16); IMMATURE GRANULOCYTES 0.3 % (0-5); LYMPHOCYTES 33.8 % (15-50); MCV 93.7 fL (80.0-100.0); MONOCYTES 10.7 % (2-11); NEUTROPHILS 49.4 % (40-80); PLATELET COUNT 709 10x3/uL (130-400); RBC 3.17 10x6/uL (4.00-5.40); RDW 17.7 % (11.5-14.5); WBC 13.7 10x3/uL (4.8-10.8)
[2016-12-29 06:42] LABS: ALBUMIN 2.8 g/dL (3.4-5.0); ALKALINE PHOSPHATASE 113 U/L (46-116); ALT (SGPT) 32 U/L (10-68); CALC OSMOLALITY 272 mosm/kg (275-300); CARBON DIOXIDE 29.9 mmol/L (21.0-32.0); CHLORIDE - SERUM 100 mmol/L (98-107); CREATININE - SERUM 0.7 mg/dL (0.6-1.3); GLUCOSE 115 mg/dL (74-106); PROTEIN - SERUM 6.4 g/dL (6.4-8.2); SODIUM 136 mmol/L (136-145); UREA NITROGEN 13 mg/dL (7-18); eGFR NON AFRICAN AMERICAN 85 mL/min (90-120)
--- NOTE | 2016-12-29 10:09 | NUR ---
ASSESSMENT COMPLETED. O2 PER TRACK COLLAR AT 28%. PEG TUBE TO ABD WITH PULMOCARE AT 45 CC /HR. RIGHT HAND IV WITH ZOFRAN AT 4.7. LEFT HAND WITH SL. CISNEROS CATH PATENT TO GRAVITY BAG. STOOL SAMPLE SENT TO LAB. FAMILY AT BEDSIDE
--- NOTE | 2016-12-29 12:23 | NUR ---
RESTING QUIETLY RESP UNLABORED DAUGHTER AT BEDSIDE WILL CONTINUE MONITOR
--- NOTE | 2016-12-29 14:48 | NUR ---
LYING QUIETLY DENIES ANY NEEDS. WILL MONITOR
--- NOTE | 2016-12-29 18:27 | NUR ---
REPOSITIONED. DENIES ANY NEEDS. CALL LIGHT IN REACH WITH SR UP. WILL MONITOR
--- NOTE | 2016-12-29 19:52 | NUR ---
RESUMED CARE OF PT, PT SLEEPING ON RIGHT SIDE, IV-R.HAND-4.7 ZOFRAN, L.HAND-SL, PEG [id number], Q4 FLUSH-50ML, CISNEROS DRAINING, TRACH COLLAR IN PLACE, BED IS LOW, SRX2, CALL LIGHT IN REACH, WILL CONTINUE WITH PLAN OF CARE
--- NOTE | 2016-12-30 00:11 | NUR ---
CHANGED PEG TUBING. ALSO DID PRN SUCTION
--- NOTE | 2016-12-30 00:30 | NUR ---
TELEPHONE EXCHANGE OPERATOR AT BEDSIDE FOR VS. NEEDS ADDRESSED, CALL LIGHT IN REACH. WILL CONT TO MONITOR.
--- NOTE | 2016-12-30 02:44 | NUR ---
ASSESSMENT COMPLETE, PT SLEEPING, BED IS LOW, SRX2, CALL LIGHT IN REACH, CONTINUE PLAN OF CARE
[2016-12-30 06:05] VITALS: BP 130/61
[2016-12-30 06:23] LABS: BASOPHILS 0.2 % (0-2); EOSINOPHILS 6.3 % (0-7); HEMATOCRIT 29.2 % (36.0-48.0); HEMOGLOBIN 9.5 g/dL (12-16); IMMATURE GRANULOCYTES 0.2 % (0-5); LYMPHOCYTES 34.1 % (15-50); MCH 30.6 pg (26.0-34.0); MCHC 32.5 g/dL (31.0-37.0); MCV 94.2 fL (80.0-100.0); MEAN PLATELET VOLUME 10.3 fL (7.4-10.4); MONOCYTES 13.1 % (2-11); NEUTROPHILS 46.1 % (40-80); PLATELET COUNT 691 10x3/uL (130-400); RDW 17.6 % (11.5-14.5); WBC 12.8 10x3/uL (4.8-10.8)
[2016-12-30 06:52] LABS: ALBUMIN 2.7 g/dL (3.4-5.0); ALKALINE PHOSPHATASE 112 U/L (46-116); ALT (SGPT) 29 U/L (10-68); BILIRUBIN - TOTAL 0.25 mg/dL (0.2-1.3); CALC OSMOLALITY 269 mosm/kg (275-300); CARBON DIOXIDE 29.4 mmol/L (21.0-32.0); CHLORIDE - SERUM 99 mmol/L (98-107); CREATININE - SERUM 0.7 mg/dL (0.6-1.3); GLUCOSE 110 mg/dL (74-106); POTASSIUM - SERUM 3.8 mmol/L (3.5-5.1); PROTEIN - SERUM 6.4 g/dL (6.4-8.2); SODIUM 134 mmol/L (136-145); UREA NITROGEN 14 mg/dL (7-18); eGFR NON AFRICAN AMERICAN 85 mL/min (90-120)
--- NOTE | 2016-12-30 07:48 | NUR ---
ASSESSMENT DONE. DENIES NEEDS.
[2016-12-30 08:40] VITALS: BP 122/55
--- NOTE | 2016-12-30 09:46 | NUR ---
RESP UL ON COLLAR. BLAYNE INTACT. RT AT BS. WILL CONT. PLAN OF CARE.
[2016-12-30 12:31] VITALS: BP 117/54
[2016-12-30 16:58] VITALS: BP 127/59
--- NOTE | 2016-12-30 17:50 | NUR ---
WITHOUT CHANGES OR DISTESS NOTED AT THIS TIME. DENIES NEEDS.
[2016-12-30 20:46] VITALS: BP 146/59
[2016-12-30 23:58] VITALS: BP 125/66
--- NOTE | 2016-12-31 01:46 | NUR ---
THIS PM, PT RESTING QUIELTY WITHOUT ANY DISTRESS. TUBE FEEDING GOING. MEDS GIVEN VIA PEG TUBE AND FLUSHED WITH 50CC OF NS POST ADMISTRATION. TRACH COLLAR ON WARM AND DRY. WILL CONTINUE TO MONITOR.
--- NOTE | 2016-12-31 02:48 | NUR ---
TRACH DRESSING CHANGED BY RESP(MAGNO).
[2016-12-31 04:11] VITALS: BP 147/67
[2016-12-31 06:55] LABS: BASOPHILS 0.4 % (0-2); HEMATOCRIT 30.8 % (36.0-48.0); HEMOGLOBIN 9.9 g/dL (12-16); IMMATURE GRANULOCYTES 0.2 % (0-5); LYMPHOCYTES 35.9 % (15-50); MCH 30.4 pg (26.0-34.0); MCHC 32.1 g/dL (31.0-37.0); MCV 94.5 fL (80.0-100.0); MEAN PLATELET VOLUME 9.6 fL (7.4-10.4); MONOCYTES 9.8 % (2-11); NEUTROPHILS 48.7 % (40-80); PLATELET COUNT 708 10x3/uL (130-400); RBC 3.26 10x6/uL (4.00-5.40); RDW 16.8 % (11.5-14.5); WBC 12.3 10x3/uL (4.8-10.8)
[2016-12-31 07:12] LABS: ALBUMIN 2.8 g/dL (3.4-5.0); ALKALINE PHOSPHATASE 110 U/L (46-116); ALT (SGPT) 30 U/L (10-68); CALC OSMOLALITY 270 mosm/kg (275-300); CARBON DIOXIDE 28.8 mmol/L (21.0-32.0); CHLORIDE - SERUM 98 mmol/L (98-107); CREATININE - SERUM 0.6 mg/dL (0.6-1.3); GLUCOSE 130 mg/dL (74-106); PROTEIN - SERUM 6.2 g/dL (6.4-8.2); SODIUM 134 mmol/L (136-145); UREA NITROGEN 15 mg/dL (7-18); eGFR NON AFRICAN AMERICAN > 90 mL/min (90-120)
--- NOTE | 2016-12-31 08:00 | NUR ---
PT LYING IN BED ALERT AND ORIENT, WITHOUT COMPLAINT. TRACH COLLAR IN PLACE TUBE FEEDING OF PULMACORT AT 45 INTO PEG TUBE, ZOFRAN DRIP AT4.7 ML/HR IN TO PERIPHERAL IV R FOREARM
--- NOTE | 2016-12-31 09:20 | NUR ---
PT ASSISTED ON TO BEDPAN THEN TO CHAIR WITH 2 PERSON ASSIST., VOICE IN TO SEE PT.
[2016-12-31 09:49] VITALS: BP 140/71
--- NOTE | 2016-12-31 12:22 | NUR ---
PT ASSISTED OFF BEDPAN, 3RD DARK TARRY STOOL, LISA HAYWARD NOTIFIED, PT CLEANED, CALMOSEPTINE APPLIED TO BUTTOCKS AND ASSISTED TO BACK TO BED WITH 2 MAN ASSIST,
[2016-12-31 13:12] VITALS: BP 134/72
--- NOTE | 2016-12-31 14:44 | NUR ---
NUTRITION MONITORING & EVAL CHART REVIEWED, TOLERATING PULMOCARE @ GOAL RATE 45 CC/HR. PUREED DIET STARTED. NO PO INTAKE BREAKFAST OR LUNCH. WILL DECREASE TUBE FEED RATE OR POSSIBLE CHANGE TO NOCTURNAL WHEN PT STARTS TO TAKE PO. RD FOLLOWING
--- NOTE | 2016-12-31 15:10 | NUR ---
PT SLEEPING NOTHING EATEN OFF OF LUNCH TRAY.
--- NOTE | 2016-12-31 16:39 | NUR ---
VISITED WITH DAUGHTER REGARDING CARE
--- NOTE | 2016-12-31 17:07 | NUR ---
Patient Name: RYLIE LUJAN Admission Status: ER Accout number: [id number] Admission Date: 12-26-2016 : 1935 Admission Diagnosis:GASTROINTESTINAL HEMORRHAGE, UNSPECIFIED Attending: LAYTON Current LOS: 5 Anticipated DC Date: TO BE DETERMINED Planned Disposition: Half-Way Facility Primary Insurance: MEDICARE A & B PLANNED EXTERNAL PROVIDER: [facility], MEDICARE REHAB BED Discharge Planning Comments: * Is the patient Alert and Oriented? Yes 0 * How many steps to enter\exit or inside your home? NONE 0 * PCP DR. TIDWELL 0 * Pharmacy [facility] 0 * Preadmission Environment Half-Way Facility 0 * Facility Name [facility] 0 * ADLs Partial Dependent 0 * Partial ADLs (Assistance needed) Bathing Medication Management 0 * Equipment Other 0 * Other Equipment ALL MEDICAL EQUIPMENT PROVIDED BY FACILITY 0 * List name and contact numbers for known caregivers / representatives who currently or will assist patient after discharge: VI SALAZAR, DAUGHTER, 0 * Community resources currently utilized None 0 * Please name any agencies selected above. NONE 0 * Additional services required to return to the preadmission environment? No 0 * Can the patient safely return to the preadmission environment? Yes 0 * Has this patient been hospitalized within the prior 30 days at any hospital? Yes 0 CM MET WITH PT IN ROOM TO DISCUSS DISCHARGE PLANNING AND NEEDS. PT REPORTS BEING IN REHAB AT [facility] AND WILL RETURN AT DISCHARGE. PT HAS ALL EQUIPMENT FROM FACILITY. CM FAXED UPDATE TO [facility], CLINICAL COORDINATOR FOR [facility], . CM SPOKE TO VI SALAZAR VIA PHONE, WHO VERFIED DISCHARGE PLAN OF RETURN TO REHAB AT [facility] WITH GOAL TO RETURN HOME WITH HOME HEALTH. [facility], FAX DISCHARGE INFORMATION TO [facility] AT [phone], CALL NURSE REPORT TO [phone]. PT TO TRANSPORT VIA AMBULANCE. Cut Press Operator: Deshawn Carroll
[2017-01-01] VITALS (7 sets, daily range): BP systolic 127–141; BP diastolic 61–82
--- NOTE | 2017-01-01 01:30 | NUR ---
THIS PM, PT WITHOUT ANY CO. DEEP SUCTIONING DONE BY RESP. PT WANTED MEDS THRU PEG TUBE. MEDS ADMINISTERED VIA PEG PER PT REQUEST.
--- NOTE | 2017-01-01 07:46 | NUR ---
PATIENT RESTING QUIETLY WITHOUT CO ANY KIND. HOB IS UP IN SEMIFOWLERS. SHE IS RECEIVING HER UPDRAFT TREATMENT VIA TRACH MASK. O2 SAT 96% WITH A HR 88 AT THIS TIME. MONITORING.
--- NOTE | 2017-01-01 10:55 | NUR ---
ALL MEDICATIONS GIVEN VIA PEG TUBE PER HER REQUEST. SHE STATES THAT SHE HASN'T EATEN IN 2 YEARS, REFUSING THE MEDICATIONS ORALLY. HER PEG TUBE IS PATENT TO CRUSHED MEDICATIONS AND THE PULMACARE AT 45CC PER HOUR WITH A 50CC WATER FLUSH EVERY 4 HOURS. HER IV IS PATENT TO THE RIGHT FOREARM IV.
--- NOTE | 2017-01-01 13:48 | NUR ---
PATEINT IS SITTING UP IN HER BED, SEMI FOWLERS. SHE IS WITHOUT S/S OF DISTRESS. HER SISTER IS AT THE BEDISDE. TRACH COLLAR DELIVERING O2. DENIES NEEDS/PAIN. SHE ATE A FEW BITES OF HER PUREED DIET.
[2017-01-02 00:20] VITALS: BP 129/87
--- NOTE | 2017-01-02 02:52 | NUR ---
THIS SHIFT, TRACH CARE AND DRESSING CHANGE BY RESP. PLUG INSERTED. COUGHING BUT NO PRODUCTION. POSITIONED ON SIDE FOR SLEEP. TUBE FEEDING @ 45 AND FLUSHED Q4. MEDS GIVEN VIA PEG.
[2017-01-02 04:37] VITALS: BP 161/66
[2017-01-02 06:58] LABS: BASOPHILS 0.4 % (0-2); EOSINOPHILS 3.7 % (0-7); HEMATOCRIT 32.3 % (36.0-48.0); HEMOGLOBIN 10.1 g/dL (12-16); IMMATURE GRANULOCYTES 0.3 % (0-5); LYMPHOCYTES 41.4 % (15-50); MCH 29.9 pg (26.0-34.0); MCHC 31.3 g/dL (31.0-37.0); MCV 95.6 fL (80.0-100.0); MEAN PLATELET VOLUME 9.9 fL (7.4-10.4); MONOCYTES 11.6 % (2-11); NEUTROPHILS 42.6 % (40-80); PLATELET COUNT 801 10x3/uL (130-400); RBC 3.38 10x6/uL (4.00-5.40); RDW 16.4 % (11.5-14.5); WBC 11.1 10x3/uL (4.8-10.8)
[2017-01-02 07:15] LABS: ANION GAP 7.7 mmol/L (8-16); CALCIUM 9.6 mg/dL (8.5-10.1); CARBON DIOXIDE 32.7 mmol/L (21.0-32.0); POTASSIUM - SERUM 4.4 mmol/L (3.5-5.1)
[2017-01-02 07:16] LABS: CREATININE - SERUM 0.8 mg/dL (0.6-1.3)
--- NOTE | 2017-01-02 07:30 | NUR ---
PATIENT WITHOUT EVIDENCE OF NEEDS/DISTRESS. CALL LIGHT WITHIN REACH. IVF INFUSING PER ORDERS, HUMIDIFICATION TO THE TRACH. DAUGHTER AT THE BEDSIDE.
[2017-01-02 07:54] VITALS: BP 132/67
--- NOTE | 2017-01-02 10:46 | NUR ---
HOB IN HI FOWLERS, DAUGHTER AT THE BEDSIDE. SHE IS RECEIVING A BREATHING TREATMENT. NO NEEDS NOTED.
[2017-01-02 12:01] VITALS: BP 120/90
[2017-01-02 16:41] VITALS: BP 129/63
--- NOTE | 2017-01-02 19:10 | NUR ---
RESUMED CARE OF PT, PT RESTING, PEG FEEDING GOING 45ML/HR, CISNEROS DRAINING, BED IS LOW, SRX2, CALL LIGHT IN REACH, WILL CONTINUE WITH PLAN OF CARE
[2017-01-02 22:47] VITALS: BP 141/75
--- NOTE | 2017-01-03 00:36 | NUR ---
HALL TENDER AT BEDSIDE TO OBTAIN VITALS, CALL LIGHT IN REACH. WILL CONTINUE WITH PLAN OF CARE.
--- NOTE | 2017-01-03 01:19 | NUR ---
CHANGED PEG FEEDING TUBE
[2017-01-03 01:51] VITALS: BP 155/73
--- NOTE | 2017-01-03 03:41 | NUR ---
ASSESSMENT COMPLETE, SEE FLOW SHEET, PT SLEEPING ON L. SIDE, CALL LIGHT IN REACH, BED IS LOW, SRX2, WILL CONTINUE PLAN OF CARE
[2017-01-03 05:07] LABS: BASOPHILS 0.2 % (0-2); EOSINOPHILS 1.6 % (0-7); HEMATOCRIT 29.6 % (36.0-48.0); HEMOGLOBIN 9.4 g/dL (12-16); IMMATURE GRANULOCYTES 0.4 % (0-5); LYMPHOCYTES 36.1 % (15-50); MCH 30.2 pg (26.0-34.0); MCHC 31.8 g/dL (31.0-37.0); MCV 95.2 fL (80.0-100.0); MEAN PLATELET VOLUME 9.7 fL (7.4-10.4); MONOCYTES 9.8 % (2-11); NEUTROPHILS 51.9 % (40-80); PLATELET COUNT 766 10x3/uL (130-400); RBC 3.11 10x6/uL (4.00-5.40); RDW 16.1 % (11.5-14.5)
[2017-01-03 05:10] LABS: WBC 14.2 10x3/uL (4.8-10.8)
[2017-01-03 05:13] VITALS: BP 135/71
[2017-01-03 05:15] LABS: CALC OSMOLALITY 269 mosm/kg (275-300); CALCIUM 9.2 mg/dL (8.5-10.1); CARBON DIOXIDE 33.8 mmol/L (21.0-32.0); CHLORIDE - SERUM 99 mmol/L (98-107); CREATININE - SERUM 0.7 mg/dL (0.6-1.3); GLUCOSE 115 mg/dL (74-106); POTASSIUM - SERUM 4.6 mmol/L (3.5-5.1); SODIUM 134 mmol/L (136-145); UREA NITROGEN 16 mg/dL (7-18); eGFR NON AFRICAN AMERICAN 85 mL/min (90-120)
--- NOTE | 2017-01-03 07:10 | NUR ---
RESTING QUIETLY EYES CLOSED RESP UNLABORED NAD NOTED
[2017-01-03 08:25] VITALS: BP 130/57
[2017-01-03 11:30] VITALS: BP 125/62
--- NOTE | 2017-01-03 12:40 | NUR ---
Nutrition follow-up: Trach removed 01/02; Pulmocare infusing @ 45 ml/hr via PEG tube Diet advanced to puree with thin liquids PO intake remains poor due to tube feeding meeting pts estimated nutritional needs. PO intake may improve if TF changed to bolus of 1 can if less than 50% eaten at meals. RDN following.
[2017-01-03 16:00] VITALS: BP 130/65
--- NOTE | 2017-01-03 17:02 | NUR ---
Patient Name: RYLIE LUJAN Encounter No: [id number] : 1935 Primary Insurance: MEDICARE A & B Anticipated DC Date: Planned Disposition: [facility]pc Facility External Planned Provider: [facility], MEDICARE REHAB BED DCP follow-up note: FAXED UPDATE TO LAURE, CLINICAL COORDINATOR FOR [facility], . FOR DISCHARGE BACK TO [facility], FAX DISCHARGE INFORMATION TO [facility] AT [phone], CALL NURSE REPORT TO [phone]. PT TO TRANSPORT VIA AMBULANCE. Animal Groomer: Deshawn Carroll
--- NOTE | 2017-01-03 19:25 | NUR ---
RECEIVED REPORT FROM DAY NURSE, PT SLEEPING, 09-26, [id number]-4.7, FEEDING TUBE-45CC, FLUSH-Q4-50, CISNEROS DRAINING, BED IS LOW, SRX2, CALL LIGHT IN REACH, WILL CONTINUE PLAN OF CARE
[2017-01-03 21:22] VITALS: BP 140/72
--- NOTE | 2017-01-04 04:05 | NUR ---
ASSESSMENT COMPLETE, SEE FLOW SHEET, PT SLEEPING, CALL LIGHT IN REACH, WILL CONTINUE PLAN OF CARE
[2017-01-04 05:10] LABS: BASOPHILS 0.3 % (0-2); EOSINOPHILS 4.8 % (0-7); HEMOGLOBIN 9.2 g/dL (12-16); IMMATURE GRANULOCYTES 0.2 % (0-5); LYMPHOCYTES 39.4 % (15-50); MCH 30.4 pg (26.0-34.0); MCHC 31.7 g/dL (31.0-37.0); MCV 95.7 fL (80.0-100.0); MEAN PLATELET VOLUME 9.8 fL (7.4-10.4); MONOCYTES 11.2 % (2-11); NEUTROPHILS 44.1 % (40-80); PLATELET COUNT 798 10x3/uL (130-400); RBC 3.03 10x6/uL (4.00-5.40); RDW 16.1 % (11.5-14.5); WBC 12.3 10x3/uL (4.8-10.8)
[2017-01-04 05:28] LABS: CALC OSMOLALITY 272 mosm/kg (275-300); CALCIUM 9.3 mg/dL (8.5-10.1); CARBON DIOXIDE 33.3 mmol/L (21.0-32.0); CHLORIDE - SERUM 99 mmol/L (98-107); CREATININE - SERUM 0.7 mg/dL (0.6-1.3); GLUCOSE 111 mg/dL (74-106); SODIUM 135 mmol/L (136-145); UREA NITROGEN 18 mg/dL (7-18); eGFR NON AFRICAN AMERICAN 85 mL/min (90-120)
[2017-01-04 05:29] LABS: POTASSIUM - SERUM 3.9 mmol/L (3.5-5.1)
--- NOTE | 2017-01-04 07:43 | NUR ---
ASSESSMENT DONE DENIES NEEDS.
[2017-01-04 08:54] VITALS: BP 119/59
--- NOTE | 2017-01-04 09:03 | NUR ---
UP TO CHAIR WITH PT ASSIST. CALL LIGHT IN REACH. DAUGHTER AT BS. WILL CONT. PLAN OF CARE.
[2017-01-04 12:20] VITALS: BP 135/63
[2017-01-04 17:16] VITALS: BP 141/58
--- NOTE | 2017-01-04 17:34 | NUR ---
WITHOUT CHANGES OR DISTRESS NOTED AT THIS TIME. DENIES NEEDS.
[2017-01-04 20:00] VITALS: BP 136/67
--- NOTE | 2017-01-04 20:00 | NUR ---
PT RESTING IN BED. ALERT/ORIENTED. STOMA WHERE PREVIOUSLY HAD TRACH COVERED WITH DRY DRESSING. O2 @ 2L/NC WITH NONLABORED RESPIRATIONS. ZOFRAN @ 4.7ML/HR INFUSING TO RFA. CISNEROS PATENT TO BEDSIDE DRAIN BAG. PULMOCARE AT 40ML/HR INFUSING AT 45ML/HR. SEE SHIFT ASSESSMENT. CPOC.
--- NOTE | 2017-01-04 23:00 | NUR ---
HS MEDS GIVEN VIA PEG TUBE. PT HAS BEEN GIVEN BATH PER CNAS AND LINENS CHANGED. CPOC.
[2017-01-05] VITALS: BP 132/60
--- NOTE | 2017-01-05 01:54 | NUR ---
RESTING IN BED WITH EYES CLOSED. RESPS EVEN/NONLABORED WITH O2 @ 2L/NC. CPOC.
[2017-01-05 04:00] VITALS: BP 129/55
[2017-01-05 06:35] LABS: BASOPHILS 0.4 % (0-2); EOSINOPHILS 3.3 % (0-7); HEMATOCRIT 28.9 % (36.0-48.0); HEMOGLOBIN 8.9 g/dL (12-16); IMMATURE GRANULOCYTES 0.2 % (0-5); LYMPHOCYTES 32.2 % (15-50); MCH 29.5 pg (26.0-34.0); MCHC 30.8 g/dL (31.0-37.0); MCV 95.7 fL (80.0-100.0); MONOCYTES 9.6 % (2-11); NEUTROPHILS 54.3 % (40-80); PLATELET COUNT 822 10x3/uL (130-400); RBC 3.02 10x6/uL (4.00-5.40); RDW 16.1 % (11.5-14.5); WBC 14.6 10x3/uL (4.8-10.8)
[2017-01-05 06:45] LABS: CALC OSMOLALITY 274 mosm/kg (275-300); CALCIUM 9.1 mg/dL (8.5-10.1); CARBON DIOXIDE 32.4 mmol/L (21.0-32.0); CHLORIDE - SERUM 99 mmol/L (98-107); CREATININE - SERUM 0.6 mg/dL (0.6-1.3); GLUCOSE 124 mg/dL (74-106); POTASSIUM - SERUM 3.6 mmol/L (3.5-5.1); SODIUM 136 mmol/L (136-145); UREA NITROGEN 17 mg/dL (7-18); eGFR NON AFRICAN AMERICAN > 90 mL/min (90-120)
--- NOTE | 2017-01-05 07:56 | NUR ---
ASSESSMENT DONE. DENIES NEEDS.
[2017-01-05 08:38] VITALS: BP 127/53
--- NOTE | 2017-01-05 09:00 | NUR ---
REPOSITIONED IN BED FOR COMFORT. CISNEROS INTACT. CALL LIGHT IN REACH. WILL CONT. PLAN OF CARE.
[2017-01-05 12:24] VITALS: BP 135/60
[2017-01-05 16:11] VITALS: BP 135/56
--- NOTE | 2017-01-05 17:25 | NUR ---
WITHOUT CHANGES OR DISTRESS NOTED AT THIS TIME. DENIES NEEDS.
--- NOTE | 2017-01-05 19:40 | NUR ---
RESUMED CARE OF PT, LYING IN BED WITH EYES CLOSED RESPIRATIONS EVEN AND UNLABORED ON 2LPM VIA NC. CISNEROS TO GRAVITY. RIGHT FOREARM INFUSING ZOFRAN @4.7. DISCONNECTED FROM PEG TUBE AT THIS TIME. CALL LIGHT IN REACH. WILL CONTINUE TO MONITOR. SEE NURSE ASSESSMENT.
[2017-01-05 20:00] VITALS: BP 111/47
--- NOTE | 2017-01-05 20:45 | NUR ---
BED BATH AND LINENS CHANGED. CALMOSEPTINE APPLIED TO BUTTOCK. TUBE FEEDING ATTACHED TO PEG TUBE PULMOCARE @ 45. WILL CONTINUE TO MONITOR. CALL LIGHT IN REACH.
[2017-01-06] VITALS (7 sets, daily range): BP systolic 116–151; BP diastolic 59–73
[2017-01-06 05:32] LABS: BASOPHILS 0.3 % (0-2); EOSINOPHILS 3.8 % (0-7); HEMATOCRIT 27.5 % (36.0-48.0); HEMOGLOBIN 8.7 g/dL (12-16); IMMATURE GRANULOCYTES 0.2 % (0-5); LYMPHOCYTES 46.3 % (15-50); MCHC 31.6 g/dL (31.0-37.0); MCV 94.8 fL (80.0-100.0); MEAN PLATELET VOLUME 9.5 fL (7.4-10.4); MONOCYTES 11.1 % (2-11); NEUTROPHILS 38.3 % (40-80); PLATELET COUNT 801 10x3/uL (130-400); RDW 15.8 % (11.5-14.5)
[2017-01-06 05:54] LABS: CALC OSMOLALITY 274 mosm/kg (275-300); CALCIUM 9.1 mg/dL (8.5-10.1); CARBON DIOXIDE 30.8 mmol/L (21.0-32.0); CHLORIDE - SERUM 100 mmol/L (98-107); CREATININE - SERUM 0.6 mg/dL (0.6-1.3); GLUCOSE 122 mg/dL (74-106); POTASSIUM - SERUM 3.4 mmol/L (3.5-5.1); SODIUM 136 mmol/L (136-145); UREA NITROGEN 17 mg/dL (7-18); eGFR NON AFRICAN AMERICAN > 90 mL/min (90-120)
--- NOTE | 2017-01-06 07:53 | NUR ---
ASSESSMENT COMPLETED. PT HAS NO TELEMETRY. 02 AT 2 L/M PER NC. RIGHT WRIST IV WITH ZOFRAN AT 4.7. CISNEROS TCATH TO BEDSIDE DRAINAGE BAG. TRAC WITH DRSG INTACT. WILL MONITOR
--- NOTE | 2017-01-06 10:49 | NUR ---
RESTING QUIETLY RESP UNLABORED NAD NOTED
--- NOTE | 2017-01-06 12:32 | NUR ---
UP IN BEDSIDE CHAIR. DENIES ANY NEEDS. CALL LIGHT IN REACH. WILL MONITOR
--- NOTE | 2017-01-06 14:31 | NUR ---
BACK TO BED. EYESY CLOED WITH NO DISTRESS NOTED. WILL MONITOR
--- NOTE | 2017-01-06 18:18 | NUR ---
LYING QUIETLY WITH HOB UP. STILL HAS SOME WHEEZING. DENIES ANY NEEDS. WILL MONITOR
[2017-01-07 04:05] VITALS: BP 145/66
[2017-01-07 05:47] LABS: BASOPHILS 0.3 % (0-2); HEMATOCRIT 26.7 % (36.0-48.0); HEMOGLOBIN 8.4 g/dL (12-16); IMMATURE GRANULOCYTES 0.2 % (0-5); LYMPHOCYTES 38.7 % (15-50); MCH 29.8 pg (26.0-34.0); MCHC 31.5 g/dL (31.0-37.0); MCV 94.7 fL (80.0-100.0); MEAN PLATELET VOLUME 10.4 fL (7.4-10.4); NEUTROPHILS 45.8 % (40-80); PLATELET COUNT 803 10x3/uL (130-400); RBC 2.82 10x6/uL (4.00-5.40); RDW 15.7 % (11.5-14.5); WBC 14.3 10x3/uL (4.8-10.8)
[2017-01-07 05:59] LABS: CALC OSMOLALITY 274 mosm/kg (275-300); CALCIUM 9.3 mg/dL (8.5-10.1); CARBON DIOXIDE 28.7 mmol/L (21.0-32.0); CHLORIDE - SERUM 100 mmol/L (98-107); CREATININE - SERUM 0.6 mg/dL (0.6-1.3); GLUCOSE 99 mg/dL (74-106); SODIUM 136 mmol/L (136-145); UREA NITROGEN 20 mg/dL (7-18); eGFR NON AFRICAN AMERICAN > 90 mL/min (90-120)
[2017-01-07 06:05] LABS: POTASSIUM - SERUM 5.3 mmol/L (3.5-5.1)
[2017-01-07 08:16] VITALS: BP 133/66
[2017-01-07 11:51] VITALS: BP 128/74
--- NOTE | 2017-01-07 12:00 | NUR ---
ALERT AND ORIENTED X4. SITTING UP IN CHAIR. PHYSICAL THERAPY ASSIST STANDING. REPORTS SAMUELS WITH STANDING. ASSIST BACK TO BED. PHYSICAL THERAPY CALL DAUGHTER SHANITA PER SHANITA'S REQUEST. SHANITA ASKS DOCTOR TO CALL HER @ [phone]. DENIES PAIN. WET HACKING COUGH. UNABLE TO COUGH UP ANYTHING. SUCTION AT BEDSIDE. ZOFRAN DRIP DISCONTINUED PER DOCTOR ORDER. CONTINUE PLAN OF CARE AND SAFETY PRECAUTIONS.
[2017-01-07 16:42] VITALS: BP 142/56
--- NOTE | 2017-01-07 18:45 | NUR ---
ALERT AND ORIENTED X4. SITTING UP IN BED. DAUGHTER AT BEDSIDE. DAUGHTER REQUESTING TUBE FEEDING BE CONTINUOUS. EDUCATE THE REASON FEEDINGS AT NIGHT AND WANTING MORE MEALS ATE DURING THE DAY TO HELP INCREASE FOOD INTAKE. ENCOURAGE DAUGHTER TO ENCOURAGE PATIENT TO EAT MORE DURING DAY. REQUEST TOP 5 FAVORITE FOODS TO ENCOURAGE EATING. CONTINUE PLAN OF CARE AND SAFETY PRECAUTIONS.
[2017-01-07 20:29] VITALS: BP 132/52
[2017-01-08 00:10] VITALS: BP 148/83
--- NOTE | 2017-01-08 01:33 | NUR ---
THIS PM, TUBE FEEDING STARTED @ 1999. PT TAKING ORAL MEDS WELL. WILL CONTINUE TO MONITOR.
[2017-01-08 05:28] VITALS: BP 104/57
[2017-01-08 07:53] VITALS: BP 138/70
--- NOTE | 2017-01-08 10:54 | NUR ---
Patient Name: RYLIE LUJAN Encounter No: [id number] : 1935 Primary Insurance: MEDICARE A & B Anticipated DC Date: Planned Disposition: Senior Living Facility External Planned Provider: [facility], MEDICARE REHAB BED DCP follow-up note: CM SPOKE TO PT IN ROOM REGARDING DISCHARGE PLAN AND NEEDS. PT REPORTS PLAN TO RETURN TO [facility] FOR REHAB ONCE SHE IS BETTER. IMPORTANT MESSAGE FROM [employer] PROVIDED AND EXPLAINED. CM FAXED UPDATE TO [facility], CLINICAL COORDINATOR FOR [facility], . [facility], FAX DISCHARGE INFORMATION TO [facility] AT [phone], CALL NURSE REPORT TO [phone]. [facility] TO ARRANGE VAN TRANSPORTATION. Head Knitting Machine Fixer: Deshawn Carroll
[2017-01-08 11:47] VITALS: BP 115/60
--- NOTE | 2017-01-08 13:15 | NUR ---
Nutrition consult: Diet: Regular mechanical soft with thin liquids Pulmocare @ 45 ml/hr from 6137-4323 (nine hours nocturnal) PO intake ~25% of some meals Labs reviewed Wt: 115# +BM Recommend a trial of bolus TF with the following regimen: If pt eats less than 50% of meals bolus 1 can of TwoCal HN. Pt will meet 90% of estimated energy needs with 3 cans of TwoCal HN. Flush with 100 ml H2O before and after each bolus. RDN following.
[2017-01-08 13:56] LABS: BASOPHILS 0.4 % (0-2); EOSINOPHILS 1.2 % (0-7); HEMATOCRIT 26.4 % (36.0-48.0); HEMOGLOBIN 8.4 g/dL (12-16); IMMATURE GRANULOCYTES 0.3 % (0-5); LYMPHOCYTES 36.8 % (15-50); MCH 30.1 pg (26.0-34.0); MCHC 31.8 g/dL (31.0-37.0); MCV 94.6 fL (80.0-100.0); MEAN PLATELET VOLUME 9.9 fL (7.4-10.4); MONOCYTES 10.8 % (2-11); NEUTROPHILS 50.5 % (40-80); PLATELET COUNT 875 10x3/uL (130-400); RBC 2.79 10x6/uL (4.00-5.40); RDW 15.8 % (11.5-14.5); WBC 13.8 10x3/uL (4.8-10.8)
[2017-01-08 14:08] LABS: CALCIUM 9.7 mg/dL (8.5-10.1); CARBON DIOXIDE 26.4 mmol/L (21.0-32.0); CHLORIDE - SERUM 98 mmol/L (98-107); CREATININE - SERUM 0.6 mg/dL (0.6-1.3); GLUCOSE 103 mg/dL (74-106); SODIUM 133 mmol/L (136-145); eGFR NON AFRICAN AMERICAN > 90 mL/min (90-120)
[2017-01-08 14:11] LABS: CALC OSMOLALITY 264 mosm/kg (275-300); POTASSIUM - SERUM 3.9 mmol/L (3.5-5.1); UREA NITROGEN 11 mg/dL (7-18)
[2017-01-08 15:59] VITALS: BP 124/50
[2017-01-08 20:00] VITALS: BP 148/55
[2017-01-09] VITALS: BP 126/59
[2017-01-09 04:00] VITALS: BP 129/61
--- NOTE | 2017-01-09 05:15 | NUR ---
HAS SLEPT THRU THE NIGHT WITHOUT ANY ISSUES OR DISTRESS.
[2017-01-09 06:25] LABS: BASOPHILS 0.3 % (0-2); EOSINOPHILS 0.9 % (0-7); HEMATOCRIT 25.2 % (36.0-48.0); IMMATURE GRANULOCYTES 0.3 % (0-5); LYMPHOCYTES 36.1 % (15-50); MCH 29.7 pg (26.0-34.0); MCHC 31.7 g/dL (31.0-37.0); MCV 93.7 fL (80.0-100.0); MEAN PLATELET VOLUME 9.9 fL (7.4-10.4); MONOCYTES 12.7 % (2-11); NEUTROPHILS 49.7 % (40-80); PLATELET COUNT 879 10x3/uL (130-400); RBC 2.69 10x6/uL (4.00-5.40); RDW 15.8 % (11.5-14.5); WBC 14.3 10x3/uL (4.8-10.8)
[2017-01-09 06:50] LABS: ALBUMIN 2.9 g/dL (3.4-5.0); ALKALINE PHOSPHATASE 82 U/L (46-116); ALT (SGPT) 25 U/L (10-68); CALC OSMOLALITY 272 mosm/kg (275-300); CALCIUM 9.4 mg/dL (8.5-10.1); CARBON DIOXIDE 28.9 mmol/L (21.0-32.0); CHLORIDE - SERUM 101 mmol/L (98-107); CREATININE - SERUM 0.5 mg/dL (0.6-1.3); GLUCOSE 105 mg/dL (74-106); POTASSIUM - SERUM 3.4 mmol/L (3.5-5.1); PROTEIN - SERUM 6.3 g/dL (6.4-8.2); SODIUM 137 mmol/L (136-145); UREA NITROGEN 10 mg/dL (7-18); eGFR NON AFRICAN AMERICAN > 90 mL/min (90-120)
--- NOTE | 2017-01-09 08:04 | NUR ---
ASSESSMENT DONE. DENIES NEEDS.
[2017-01-09 08:45] VITALS: BP 146/64
--- NOTE | 2017-01-09 09:08 | NUR ---
RESP UL ON . BLAYNE NICHOLS. CALL LIGHT IN REACH. WILL CONT. PLAN OF CARE.
[2017-01-09 11:57] VITALS: BP 118/70
[2017-01-09 16:39] VITALS: BP 130/55
--- NOTE | 2017-01-09 18:07 | NUR ---
Patient Name: RYLIE LUJAN Encounter No: [id number] : 1935 Primary Insurance: MEDICARE A & B Anticipated DC Date: 01-09-2017 Planned Disposition: Senior Care Facility External Planned Provider: [facility], MEDICARE REHAB BED DCP follow-up note: CM RECEIVED CALL FROM VI SALAZAR, DAUGHTER, , WHO REPORTS THAT SHE HEARD THE DOCTOR IS PLANNING DISCHARGE BACK TO [facility] TOMORROW AND SHE FEELS LIKE PT IS TOO SICK TO DISCHARGE TO REHAB AND WOULD LIKE TO SPEAK TO THE DOCTOR ABOUT IT BEFORE PT IS DISCHARGED. CM PROVIDED IMPORTANT MESSAGE FROM [employer] INFORMATION AND PHONE NUMBER TO APPEAL DISCHARGE IF NECESSARY. CM ADVISED IT WOULD BE BEST IF SHE WAS HERE WITH PT TO DISCUSS THIS WITH THE DOCTOR WHEN THE DOCTOR ROUNDS TOMORROW. CM TO FOLLOW AND ASSIST NEEDED. PT ASKED THAT THE DOCTOR CALL HER BEFORE DISCHARGING PATIENT; VI SALAZAR, DAUGHTER, . Deshawn Carroll, CASE MANAGEMENT
[2017-01-09 20:16] VITALS: BP 127/49
--- NOTE | 2017-01-10 00:15 | NUR ---
PT IV INFILTRATED TO RIGHT FOREARM. REMOVED AT THIS TIME WITH CATH TIP INTACT. RESITED TO RIGHT WRIST WITH 20 GA ANGIOCATH X1 STICK. PT GILBERTO VERY WELL.
[2017-01-10 00:23] VITALS: BP 123/62
--- NOTE | 2017-01-10 00:30 | NUR ---
BLOOD CONSENT SIGNED AND ON THE CHART. ORDER FOR PRBC'S TRANSFUSION X2 UNITS REVIEWED. 1 ST UNIT PRBC'S STARTED AT THIS TIME. WILL MONITOR FREQ FOR ADVERSE REACTIONS. VS MONITORED PER PROTOCOL.
--- NOTE | 2017-01-10 02:45 | NUR ---
2ND UNIT PRBC'S STARTED AT THIS TIME. 1 ST UNIT PRBC'S COMPLETED WITHOUT COMPLICATION OR ADVERSE REACTION NOTED. SEE TRANSFUSION RECORD FOR FURTHER DETAILS
[2017-01-10 04:13] VITALS: BP 136/82
--- NOTE | 2017-01-10 05:00 | NUR ---
2ND UNIT PRBC'S COMPLETED WITHOUT ADVERSE REACTION OR COMPLICATION. VSS, TEMP 98.6. PT GILBERTO WELL. WILL CONT TO MONITOR.
[2017-01-10 05:58] LABS: BASOPHILS 0.3 % (0-2); EOSINOPHILS 1.7 % (0-7); IMMATURE GRANULOCYTES 0.3 % (0-5); LYMPHOCYTES 35.4 % (15-50); MCH 28.8 pg (26.0-34.0); MCHC 32.8 g/dL (31.0-37.0); MEAN PLATELET VOLUME 9.5 fL (7.4-10.4); NEUTROPHILS 48.3 % (40-80); PLATELET COUNT 765 10x3/uL (130-400); RDW 16.7 % (11.5-14.5); WBC 15.7 10x3/uL (4.8-10.8)
[2017-01-10 06:05] LABS: HEMATOCRIT 33.8 % (36.0-48.0); HEMOGLOBIN 11.1 g/dL (12-16); MCV 87.8 fL (80.0-100.0); RBC 3.85 10x6/uL (4.00-5.40)
[2017-01-10 06:21] LABS: CALC OSMOLALITY 266 mosm/kg (275-300); CALCIUM 9.2 mg/dL (8.5-10.1); CARBON DIOXIDE 27.5 mmol/L (21.0-32.0); CHLORIDE - SERUM 98 mmol/L (98-107); CREATININE - SERUM 0.6 mg/dL (0.6-1.3); GLUCOSE 99 mg/dL (74-106); POTASSIUM - SERUM 3.4 mmol/L (3.5-5.1); SODIUM 134 mmol/L (136-145); UREA NITROGEN 9 mg/dL (7-18); eGFR NON AFRICAN AMERICAN > 90 mL/min (90-120)
--- NOTE | 2017-01-10 06:56 | NUR ---
PT K+ THIS AM RESULTS 3.4. KCL 40 MEQ PER PEG TUBE GIVEN. PT TOLERATES WILL. K+ LEVEL TO BE REDRAWN @ 11:00 AM PER PROTOCOL.
[2017-01-10 08:08] VITALS: BP 149/72
[2017-01-10 11:24] VITALS: BP 137/60
[2017-01-10] MEDS ORDERED: MIRALAX17 GM PO (14:23)
[2017-01-10] MEDS ORDERED: CARAFATE1 G/10 ML PO (14:23)
[2017-01-10] MEDS ORDERED: METOCLOPRAM5 MG/5 ML PO (14:23)
[2017-01-10] MEDS ORDERED: MARINOL2.5 MG PO (14:40)
[2017-01-10 15:39] VITALS: BP 131/65
--- NOTE | 2017-01-10 15:50 | NUR ---
Patient Name: RYLIE LUJAN Encounter No: [id number] : 1935 Primary Insurance: MEDICARE A & B Anticipated DC Date: 01-10-2017 Planned Disposition: Intermediate Facility External Planned Provider: [facility], MEDICARE REHAB BED DCP follow-up note: CM RECEIVED DISCHARGE ORDER, SPOKE TO PT AND DAUGHTER IN ROOM, HAS SPOKEN TO THE DOCTOR, WANTS TO SEE HIM AGAIN BUT IF THE DOCTOR IS READY TO DISCHARGE THE PT, THEY ARE IN AGREEMENT WITH DISCHARGE BACK TO REHAB. CM NOTIFIED DR. JOHNSON. CM NOTIFIED GEOSPATIAL ENGINEER. CM NOTIFIED [facility], CLINICAL LIAISON FOR [facility] WHO WILL ARRANGE VAN DEPUTY DIRECTOR OF FINANCE FOR PT TODAY. CM FAXED DISCHARGE INFORMATION TO [facility] AT [phone]. CALL NURSE REPORT TO [phone]. [facility] TO ARRANGE VAN TRANSPORTATION. MINDI BELLE, CASE MANAGEMENT
--- NOTE | 2017-01-10 15:50 | NUR ---
THIS SHIFT PATIENT HAS BEEN UP IN WC. HAS NOT EATEN BREAKFAST BUT ONLY FEW BITS OF LUNCH. PT BOLUSED WITH CANS OF TUBE FEEDING AND FLUSH. HAVE RECEIVED ORDERS FOR DISCHARGE.
--- NOTE | 2017-01-10 16:07 | NUR ---
REPORT CALLED TO [facility]. REPORT GIVEN TO Gerard BENITEZ LPN. IV DC AND PT IN WC. DC VIA AND Pops.
== END 2017-01-10 16:08 | DRG 378 ==
LOC: D.ER 12:44 → D.M2 17:07 → D.ICU 17:07 → D.M2 12-28 17:42
PROVIDERS: Emergency Medicine; Family Medicine; Internal Medicine Gastroenterology; ADMIT Family Medicine Adult Medicine
PROC: 0DJ08ZZ Inspection of Upper Intestinal Tract, Via Natural or Artificial Opening Endoscopic (ICD-10-PCS; principal; 2016-12-27 11:30)
DX: K92.2 Gastrointestinal hemorrhage, unspecified (principal); T83.511A Infection and inflammatory reaction due to indwelling urethral catheter, initial encounter; K22.10 Ulcer of esophagus without bleeding; G62.9 Polyneuropathy, unspecified; I10 Essential (primary) hypertension; D64.9 Anemia, unspecified; Z93.0 Tracheostomy status; Z93.1 Gastrostomy status; K22.0 Achalasia of cardia; Y84.6 Urinary catheterization as the cause of abnormal reaction of the patient, or of later complication, without mention of misadventure at the time of the procedure; R68.81 Early satiety; R00.0 Tachycardia, unspecified

== ENCOUNTER 2017-02-16 11:07 | Emergency (ER) | payer MEDICARE, BC ==
[2016-12-27 10:56] VITALS: BMI 21.3
[~2017-02-16 11:07] MED LIST changes: +CARAFATE1 G/10 ML PO; +MARINOL2.5 MG PO; +METOCLOPRAM5 MG/5 ML PO; +MIRALAX17 GM PO; +OMNICEF300 MG PO; +PROTONIX FOR OR40 MG PT
[2017-02-16 12:49] LABS: APPEARANCE HAZY (CLEAR); BILIRUBIN NEGATIVE (NEGATIVE); COLOR YELLOW (YELLOW); GLUCOSE NEGATIVE (NEGATIVE); KETONE NEGATIVE (NEGATIVE); LEUKOCYTE ESTERASE NEGATIVE (NEGATIVE); NITRITE NEGATIVE (NEGATIVE); PH 5.5 (5.0-6.0); PROTEIN NEGATIVE (NEGATIVE); UROBILINOGEN NORMAL (NORMAL)
[2017-02-16 13:01] LABS: BASOPHILS 0.2 % (0-2); EOSINOPHILS 1.6 % (0-7); HEMATOCRIT 37.8 % (36.0-48.0); IMMATURE GRANULOCYTES 0.1 % (0-5); LYMPHOCYTES 36.6 % (15-50); MCH 28.5 pg (26.0-34.0); MCHC 31.7 g/dL (31.0-37.0); MCV 89.8 fL (80.0-100.0); MEAN PLATELET VOLUME 9.9 fL (7.4-10.4); MONOCYTES 7.7 % (2-11); NEUTROPHILS 53.8 % (40-80); PLATELET COUNT 887 10x3/uL (130-400); RBC 4.21 10x6/uL (4.00-5.40); RDW 14.3 % (11.5-14.5); WBC 16.6 10x3/uL (4.8-10.8)
[2017-02-16 13:18] LABS: ALBUMIN 3.3 g/dL (3.4-5.0); ANION GAP 10.7 mmol/L (8-16); BILIRUBIN - TOTAL 0.36 mg/dL (0.2-1.3); CALCIUM 10.1 mg/dL (8.5-10.1); CARBON DIOXIDE 28.1 mmol/L (21.0-32.0); POTASSIUM - SERUM 3.8 mmol/L (3.5-5.1); PROTEIN - SERUM 7.6 g/dL (6.4-8.2)
== END 2017-02-16 15:19 | disposition home or self-care (01) ==
LOC: D.ER 11:07
PROVIDERS: Nurse Practitioner Family
DX: E86.0 Dehydration (principal); K22.0 Achalasia of cardia; K21.9 Gastro-esophageal reflux disease without esophagitis; I10 Essential (primary) hypertension

== ENCOUNTER 2017-05-02 02:25 | Inpatient (IN) | payer MEDICARE, BC ==
[~2017-05-02] VITALS: Ht 165.1 cm; Wt 51.4 kg
[2017-05-02 02:56] LABS: BASOPHILS 0.3 % (0-2); EOSINOPHILS 1.5 % (0-7); HEMATOCRIT 39.1 % (36.0-48.0); HEMOGLOBIN 12.7 g/dL (12-16); IMMATURE GRANULOCYTES 0.3 % (0-5); LYMPHOCYTES 32.6 % (15-50); MCH 29.5 pg (26.0-34.0); MCHC 32.5 g/dL (31.0-37.0); MCV 90.7 fL (80.0-100.0); MEAN PLATELET VOLUME 10.7 fL (7.4-10.4); MONOCYTES 10.1 % (2-11); NEUTROPHILS 55.2 % (40-80); RBC 4.31 10x6/uL (4.00-5.40); RDW 20.2 % (11.5-14.5); WBC 12.5 10x3/uL (4.8-10.8)
[2017-05-02 02:58] LABS: PLATELET COUNT 631 10x3/uL (130-400)
[2017-05-02 03:12] LABS: ALBUMIN 3.5 g/dL (3.4-5.0); ANION GAP 13.1 mmol/L (8-16); BILIRUBIN - TOTAL 0.38 mg/dL (0.2-1.3); CALCIUM 9.4 mg/dL (8.5-10.1); CARBON DIOXIDE 27.1 mmol/L (21.0-32.0); CREATININE - SERUM 0.8 mg/dL (0.6-1.3); POTASSIUM - SERUM 4.2 mmol/L (3.5-5.1); PROTEIN - SERUM 7.4 g/dL (6.4-8.2)
[2017-05-02 04:25] LABS: APPEARANCE HAZY (CLEAR); BILIRUBIN NEGATIVE (NEGATIVE); COLOR YELLOW (YELLOW); GLUCOSE NEGATIVE (NEGATIVE); KETONE NEGATIVE (NEGATIVE); LEUKOCYTE ESTERASE NEGATIVE (NEGATIVE); NITRITE NEGATIVE (NEGATIVE); PROTEIN NEGATIVE (NEGATIVE); SPECIFIC GRAVITY 1.015 (1.005-1.020); UROBILINOGEN NORMAL (NORMAL)
[2017-05-02 05:06] VITALS: BMI 18.9
[2017-05-02 09:03] VITALS: BP 133/61
[2017-05-02 12:28] VITALS: BP 158/68
[2017-05-02 13:24] VITALS: Ht 165.1 cm; Wt 51.4 kg
[2017-05-02 15:57] LABS: % SATURATION 64 % (15-55); IRON 158 ug/dl (35-150); TOTAL IRON BIND CAPACITY 244 ug/dl (260-445); UNSAT IRON BIND CAPACITY 86 ug/dl (150-375)
[2017-05-02 16:53] VITALS: BP 154/70
[2017-05-02 20:00] VITALS: BP 130/61
[2017-05-03] VITALS: BP 120/64
[2017-05-03 04:00] VITALS: BP 115/63
[2017-05-03 05:27] LABS: BASOPHILS 0.4 % (0-2); EOSINOPHILS 1.7 % (0-7); HEMATOCRIT 32.9 % (36.0-48.0); HEMOGLOBIN 10.7 g/dL (12-16); IMMATURE GRANULOCYTES 0.1 % (0-5); MCH 29.5 pg (26.0-34.0); MCHC 32.5 g/dL (31.0-37.0); MCV 90.6 fL (80.0-100.0); MEAN PLATELET VOLUME 11.1 fL (7.4-10.4); MONOCYTES 13.8 % (2-11); PLATELET COUNT 617 10x3/uL (130-400); RBC 3.63 10x6/uL (4.00-5.40); RDW 20.5 % (11.5-14.5); WBC 9.8 10x3/uL (4.8-10.8)
[2017-05-03 05:51] LABS: ALBUMIN 2.7 g/dL (3.4-5.0); ANION GAP 9.1 mmol/L (8-16); BILIRUBIN - TOTAL 0.35 mg/dL (0.2-1.3); CALCIUM 8.4 mg/dL (8.5-10.1); CARBON DIOXIDE 26.3 mmol/L (21.0-32.0); CREATININE - SERUM 0.8 mg/dL (0.6-1.3); PROTEIN - SERUM 5.9 g/dL (6.4-8.2)
[2017-05-03 05:52] LABS: POTASSIUM - SERUM 3.4 mmol/L (3.5-5.1)
[2017-05-03 08:14] LABS: FOLATE (FOLIC ACID) - SERUM >20.0 ng/mL (>3.0)
[2017-05-03 09:00] VITALS: BP 139/70
== END 2017-05-03 13:26 | disposition home or self-care (01) | DRG 392 ==
LOC: D.ER 02:25 → D.MS 03:36
PROVIDERS: Emergency Medicine; ADMIT Emergency Medicine
DX: K22.0 Achalasia of cardia (principal); E46 Unspecified protein-calorie malnutrition; Z68.1 Body mass index [BMI] 19.9 or less, adult; D47.3 Essential (hemorrhagic) thrombocythemia; R53.83 Other fatigue; D64.9 Anemia, unspecified

== ENCOUNTER 2017-05-08 13:41 | Emergency (ER) | payer MEDICARE, BC ==
[2017-05-02 13:24] VITALS: BMI 18.8
[2017-05-08 15:12] LABS: HEMATOCRIT 38.3 % (36.0-48.0); HEMOGLOBIN 12.6 g/dL (12-16); MCH 29.8 pg (26.0-34.0); MCHC 32.9 g/dL (31.0-37.0); MCV 90.5 fL (80.0-100.0); MEAN PLATELET VOLUME 10.8 fL (7.4-10.4); PLATELET COUNT 628 10x3/uL (130-400); RBC 4.23 10x6/uL (4.00-5.40); RDW 19.7 % (11.5-14.5)
[2017-05-08 15:29] LABS: ALBUMIN 3.4 g/dL (3.4-5.0); ANION GAP 12.6 mmol/L (8-16); BILIRUBIN - TOTAL 0.42 mg/dL (0.2-1.3); CALCIUM 9.1 mg/dL (8.5-10.1); CREATININE - SERUM 0.9 mg/dL (0.6-1.3); POTASSIUM - SERUM 3.6 mmol/L (3.5-5.1); PROTEIN - SERUM 7.3 g/dL (6.4-8.2)
[2017-05-08 16:01] LABS: LYMPHOCYTES 15 % (15-50); MONOCYTES 1 % (2-11); NEUTROPHILS 84 % (40-80); PLATELET ESTIMATE INCREASED; POIKILOCYTOSIS OCC
[2017-05-08 16:55] LABS: APPEARANCE HAZY (CLEAR); BACTERIA FEW /hpf (NONE SEEN); BILIRUBIN NEGATIVE (NEGATIVE); COLOR DK YELLOW (YELLOW); GLUCOSE NEGATIVE (NEGATIVE); KETONE NEGATIVE (NEGATIVE); LEUKOCYTE ESTERASE TRACE (NEGATIVE); MUCUS >1+ /lpf (NONE SEEN); NITRITE NEGATIVE (NEGATIVE); PROTEIN TRACE mg/dL (NEGATIVE); RED CELLS - URINE OCC /hpf (0-5); UROBILINOGEN NORMAL (NORMAL)
== END 2017-05-08 17:48 | disposition home or self-care (01) ==
LOC: D.ER 13:41
PROVIDERS: Family Medicine
DX: D72.829 Elevated white blood cell count, unspecified (principal); R53.83 Other fatigue; R53.1 Weakness; K21.9 Gastro-esophageal reflux disease without esophagitis; I10 Essential (primary) hypertension

== ENCOUNTER 2018-09-16 09:09 | Day surgery (SDC) | payer MEDICARE, BC ==
[~2018-09-16] VITALS: Ht 165.1 cm; Wt 31.8 kg
[2018-09-16 10:15] LABS: HEMATOCRIT 46.1 % (36.0-48.0); HEMOGLOBIN 15.4 g/dL (12-16); MCH 30.3 pg (26.0-34.0); MCHC 33.4 g/dL (31.0-37.0); MCV 90.6 fL (80.0-100.0); MEAN PLATELET VOLUME 11.2 fL (7.4-10.4); RBC 5.09 10x6/uL (4.00-5.40); RDW 13.9 % (11.5-14.5); WBC 8.1 10x3/uL (4.8-10.8)
[2018-09-16] MEDS ORDERED: ZOFRAN4 MG PO (10:18)
[2018-09-16] MEDS ORDERED: MEGACE40 MG PO (10:18)
[2018-09-16 10:19] VITALS: BP 119/75; BMI 11.6
[2018-09-16 11:30] VITALS: Ht 165.1 cm; Wt 31.8 kg
--- NOTE | 2018-09-16 12:26 | NUR ---
REFERAL FOR HOME HEALTH SENT TO [facility] PER DAUGHTER POA REQUEST. ORDER FOR TF BOLUS FAXED WITH REFERAL. ORDER PER DR MCKEON.
--- NOTE | 2018-09-16 16:09 | NUR ---
DC INSTRUCTIONS GIVEN TO PT/FAMILY. STATE UNDERSTANDING. DC'D IV CATH FULLY INTACT.
--- NOTE | 2018-09-16 16:10 | NUR ---
PT LEFT UNIT VIA WC AT 1608
== END 2018-09-16 16:08 | disposition home or self-care (01) ==
LOC: D.OPS 09:09
PROVIDERS: Anesthesiology
DX: R13.10 Dysphagia, unspecified (principal); E43 Unspecified severe protein-calorie malnutrition; I10 Essential (primary) hypertension

== ENCOUNTER 2018-09-19 12:29 | Emergency (ER) | payer MEDICARE, BC ==
[~2018-09-19] VITALS: Ht 165.1 cm; Wt 47.7 kg
[~2018-09-19 12:29] MED LIST changes: +MEGACE40 MG PO; +ZOFRAN4 MG PO
[2018-09-19 12:34] VITALS: BP 165/112; Ht 165.1 cm; Wt 47.7 kg
[2018-09-19 13:01] LABS: BASOPHILS 0.1 % (0-2); EOSINOPHILS 0 % (0-7); HEMATOCRIT 40.5 % (36.0-48.0); HEMOGLOBIN 13.6 g/dL (12-16); IMMATURE GRANULOCYTES 0.4 % (0-5); LYMPHOCYTES 4.8 % (15-50); MCH 29.8 pg (26.0-34.0); MCHC 33.6 g/dL (31.0-37.0); MCV 88.8 fL (80.0-100.0); MEAN PLATELET VOLUME 11.5 fL (7.4-10.4); MONOCYTES 8.3 % (2-11); NEUTROPHILS 86.4 % (40-80); PLATELET COUNT 346 10x3/uL (130-400); RBC 4.56 10x6/uL (4.00-5.40); RDW 13.9 % (11.5-14.5); WBC 11.4 10x3/uL (4.8-10.8)
[2018-09-19 13:12] LABS: ALBUMIN 2.9 g/dL (3.4-5.0); ANION GAP 16.4 mmol/L (8-16); BILIRUBIN - TOTAL 1.02 mg/dL (0.2-1.3); CALCIUM 9.9 mg/dL (8.5-10.1); CARBON DIOXIDE 26.2 mmol/L (21.0-32.0); CREATININE - SERUM 1.1 mg/dL (0.6-1.3); POTASSIUM - SERUM 4.6 mmol/L (3.5-5.1); PROTEIN - SERUM 6.6 g/dL (6.4-8.2)
== END 2018-09-19 16:47 | disposition left against medical advice (07) ==
LOC: D.ER 12:29
PROVIDERS: Family Medicine
DX: K94.23 Gastrostomy malfunction (principal); I48.91 Unspecified atrial fibrillation; E87.1 Hypo-osmolality and hyponatremia; D72.829 Elevated white blood cell count, unspecified; I31.9 Disease of pericardium, unspecified; N28.9 Disorder of kidney and ureter, unspecified; I10 Essential (primary) hypertension; R00.0 Tachycardia, unspecified